=== PATIENT | female | born 1940 | race Caucasian/White ===

== ENCOUNTER 2020-04-04 11:26 | Outpatient (NON) | payer MEDICARE, SELFPAY ==
[2020-04-04 23:29] LABS: SARS-CoV-2 RNA PCR Negative
== END 2020-04-04 11:27 ==
PROVIDERS: PCP Family Medicine; Visit Provider Physician Assistant Medical
DX: Z20.822 Contact with and (suspected) exposure to COVID-19 (principal); R09.81 Nasal congestion
CPT/HCPCS: C9803; U0003

== ENCOUNTER 2020-04-10 14:44 | Outpatient (CLI) | payer MEDICARE, SELFPAY ==
--- NOTE | ~2020-04-10 | MM_ITS ---
EXAMINATION: MM scrn melissa implant LT w sophia HISTORY: Screening mammogram TECHNIQUE: Craniocaudal and mediolateral oblique 3-D tomosynthesis images with implant displacement a nd synthetic 2-D images were generated. Craniocaudal and mediolateral oblique views of the breasts wi thout implant displacement were obtained using full field digital mammography. CAD analysis was submi tted and interpreted. COMPARISON: Comparison to multiple prior studies sequentially, with oldest reviewed study dated 03/2013. BREAST PARENCHYMAL COMPOSITION: There are scattered areas of fibroglandular density. FINDINGS: There is no evidence of suspicious mass, calcification, or architectural distortion to sugg est malignancy in either breast. There has been no suspicious interval change. IMPRESSION: 1. No mammographic evidence of malignancy. 2. Recommend routine screening mammography in one year. BI-RADS Category 1: Negative Reviewed, dictated and finalized at location A. DCAST METEOROLOGIST
== END 2020-04-10 14:45 | disposition home or self-care (01) ==
LOC: ANHIMG 14:53
PROVIDERS: PCP Family Medicine; Visit Provider Physician Assistant Medical
DX: Z12.31 Encounter for screening mammogram for malignant neoplasm of breast (principal)
CPT/HCPCS: 77063; 77067

== ENCOUNTER 2020-12-15 14:35 | Emergency (ER) | payer MEDICARE, SELFPAY ==
--- NOTE | ~2020-12-15 | XR_ITS ---
EXAMINATION: XR chest 2V DATE: 12/15/2020 14:56 INDICATION: Shortness of breath and chest pain, history of right mastectomy TECHNIQUE: PA and lateral views of the chest are obtained. COMPARISON: None available FINDINGS: The lungs are free of acute opacities. Calcified pulmonary nodules are consistent with old granulomatous disease. There is no pleural effusion or pneumothorax. The cardiomediastinal silhouette is normal. There is moderate thoracic spondylosis. There are changes of right breast reconstruction. IMPRESSION: 1. No acute cardiopulmonary abnormality. Reviewed, dictated and finalized at location A.
[2020-12-15 14:47] VITALS: BP 150/110; PULSE 73; RESP 16; TEMP 36.2; O2SAT 96
--- NOTE | 2020-12-15 14:58 | ED.SOB ---
HPI - SOB/Dyspnea General Chief Complaint: Shortness of Breath/Dyspnea Stated Complaint: Hurts to breathe History of Present Illness HPI Narrative: This is a 81 year old female that comes in complaining of having had chest or muscle tightness for the past week. Patient states today she had some shortness of breath she has called her doctor who told her to come for a chest x ray. At this time patient states she started to have pain with breathing in her chest. Patient states that she believes it is pneumonia due to her was just released from the hospital with pneumonia. Patient denies any coughing states that it just has come on today. Patient denies any radiation down her arm no nausea and or vomiting. Related Data Home Medications Medication Instructions Recorded Confirmed aspirin 81 mg tablet,delayed 81 mg PO DAILY 04/06/19 12/15/20 release vitamins A,C,Q-haxg-osjnor 14,320 1 cap PO ONCE cap 09/14/19 12/15/20 unit-226 mg-200 unit capsule Allergies Allergy/AdvReac Type Severity Reaction Status Date / Time chlorpheniramine Allergy Unknown Unknown Verified 12/15/20 14:52 [Ed A-Hist DM] dextromethorphan Allergy Unknown Unknown Verified 12/15/20 14:52 [Ed A-Hist DM] enalapril Allergy Unknown facial Verified 12/15/20 14:52 swelling phenylephrine [Ed A-Hist DM] Allergy Unknown Unknown Verified 12/15/20 14:52 pseudoephedrine [Aprodine] Allergy Unknown Unknown Verified 12/15/20 14:52 triprolidine [Aprodine] Allergy Unknown Unknown Verified 12/15/20 14:52 Review of Systems Review of Systems: REspiratory : Pain with breathing in her midsternal chest with every breath and on her front chest holland as well. All systems reviewed & are unremarkable except as noted in HPI and below PMFSH Past Medical History Medical History (Updated 12/15/20 @ 18:14 by Gerardo Pak NP) Esophageal web Essential (primary) hypertension Hiatal hernia History of gastroesophageal reflux (GERD) History of right breast cancer (~1989) Impacted cerumen of both ears Internal hemorrhoid Iron deficiency anemia Mixed hyperlipidemia Neck muscle strain Obesity Sleep apnea Sleep apnea, unspecified Spinal stenosis, lumbar region, with neurogenic claudication 2018: L4-L5 moderate to severe spinal stenosis/ severe degenerative disc disease Wears eyeglasses Surgical History Surgical History History of appendectomy History of cataract extraction (~1994) History of colonoscopy (~02/01/14) History of hernia repair History of right mastectomy Family History Family History Father Hypertension Family history of elevated blood lipids Family history of cardiovascular disease Mother Hypertension Other Family history of malignant neoplasm of breast Social History Social History Second hand tobacco smoke exposure: No Smoking end date: 03/31/85 Alcohol intake: current Drinks per week: 3 Substance use: never Substance use type: does not use Gender identity (if verbalized by the patient): Female Spiritual care concerns: Yes (Buddhist) Agree to blood products: Yes Comments At time as signature, I have reviewed and agree with nursing past medical, social, surgical and family history. Please see nursing chart for further information. There is no relevant family history pertinent to the presenting complaint. Exam Narrative: GENERAL:Well-appearing, well-nourished, and in no acute distress. HEAD:Normocephalic EYES: PERRLA ENT: Nares clear, no rhinorrhea or epistaxis. Mucous membranes moist. CHEST: Clear to auscultation. No respiratory distress. HEART: Regular rate and rhythm. Normal peripheral pulses. ABDOMEN: Soft, nontender, normal active bowel sounds. EXTREMITIES: Normal range of motion. No edema. SKIN: Warm, dry, no rash. NEURO: No foca
--- NOTE | 2020-12-15 15:22 | ECG_ITS ---
Measurements Intervals [place] Rate: 69 P: 36 NV: 171 QRS: 27 QRSD: 82 T: 3 QT: 380 QTc: 407 Interpretive Statements SINUS RHYTHM ATRIAL PREMATURE COMPLEX BASELINE ARTIFACT- II, III, AVF, V3 BORDERLINE ECG Electronically Signed On 12-15-2020 15:55:56 CDT by Khai Wolff D.O.
== END 2020-12-15 15:43 | disposition short-term general hospital (02) ==
LOC: EXPGLEN 14:37
PROVIDERS: Emergency Provider Nurse Practitioner Family; PCP Family Medicine
DX: I10 Essential (primary) hypertension (principal); R07.9 Chest pain, unspecified; E78.2 Mixed hyperlipidemia; Z79.82 Long term (current) use of aspirin; Z85.3 Personal history of malignant neoplasm of breast
CPT/HCPCS: 71046; 93005; 99213; G0463

== ENCOUNTER 2020-12-15 16:13 | Emergency (ER) | payer MEDICARE, SELFPAY ==
[2020-12-15] VITALS (7 sets, daily range): BP systolic 118–206; BP diastolic 79–107; PULSE 62–72; RESP 16–21; TEMP 37.1; O2SAT 94–99
--- NOTE | 2020-12-15 16:17 | ECG_ITS ---
Measurements Intervals [place] Rate: 76 P: 38 MS: 173 QRS: 38 QRSD: 81 T: 27 QT: 375 QTc: 424 Interpretive Statements SINUS RHYTHM BORDERLINE ST ABNORMALITY- INFERIOR LEADS BASELINE ARTIFACT- I, III, AVL, AVF BORDERLINE ECG Electronically Signed On 12-15-2020 16:41:34 CDT by Khai Wolff D.O.
[2020-12-15 16:36] LABS: Basophils Absolute Auto 0.1 K/mm3 (0.0-0.1); Basophils Percent Auto 0.6 % (0.2-1.2); Eosinophils Absolute Auto 0.2 K/mm3 (0-0.3); Eosinophils Percent Auto 2.2 % (0-4.4); Hematocrit 43.1 % (37.0-47.0); Hemoglobin 13.6 g/dL (12.0-15.0); Immature Granulocyte Absolute 0.02 K/mm3 (0.00-0.031); Immature Granulocyte Percent A 0.2 % (0-0.5); Lymphocytes Absolute Auto 2.96 K/mm3 (0.9-3.2); Lymphocytes Percent Auto 29.2 % (18.3-44.2); Mean Corpuscular HGB Conc 31.6 g/dl (32-36); Mean Corpuscular Hemoglobin 28.3 pg (26-34); Mean Corpuscular Volume 89.8 fl (80-100); Mean Platelet Volume 9.3 fl (7.4-10.4); Monocytes Absolute Auto 1.1 K/mm3 (0.1-0.6); Monocytes Percent Auto 10.7 % (2.6-8.5); Neutrophils Absolute Auto 5.8 K/mm3 (1.3-6.7); Neutrophils Percent Auto 57.1 % (45.5-73.1); Platelet Count Result 282 k/mm3 (150-375); White Blood Count 10.1 K/mm3 (4.5-10.0)
[2020-12-15 16:53] LABS: INR 0.9; Prothrombin Time 12.4 Seconds (11.1-14.7)
[2020-12-15 16:54] LABS: Partial Thromboplastin Time 24.6 SECONDS (22.3-36.8)
[2020-12-15 16:58] LABS: Anion Gap 10 mmol/L (8-16); Blood Urea Nitrogen 19 mg/dL (7-17); Calcium 9.8 mg/dL (8.4-10.2); Carbon Dioxide 27 mmol/L (22-30); Chloride 101 mmol/L (98-107); Estimated Glomerular Filt Rate > 60; Glucose 97 mg/dL (65-110); Potassium 4.5 mmol/L (3.4-5.0); Sodium 138 mmol/L (137-145)
[2020-12-15 17:00] LABS: Troponin I < 0.012 ng/mL (0.000-0.034)
--- NOTE | 2020-12-15 19:51 | ED.CHESTPAIN ---
HPI - Chest Pain General Chief Complaint: Chest Pain Stated Complaint: CHEST PAIN WITH BREATHING Time Seen by Provider: 12/15/20 19:36 Source: patient Mode of arrival: ambulatory Limitations: no limitations History of Present Illness HPI narrative: This is a 79 year old female that presents to the ER for intermittent chest pain noted over the last week. Reports pain is worse with breathing. Does report some exertional shortness of breath. Reports some lower extremity edema as she has been sitting a lot today. Denies fever, or cough. Related Data Home Medications Medication Instructions Recorded Confirmed aspirin 81 mg tablet,delayed 81 mg PO DAILY 04/06/19 12/15/20 release vitamins A,C,D-pqqi-vgagcy 14,320 1 cap PO ONCE cap 09/14/19 12/15/20 unit-226 mg-200 unit capsule Allergies Allergy/AdvReac Type Severity Reaction Status Date / Time chlorpheniramine Allergy Unknown Unknown Verified 12/15/20 14:52 [Ed A-Hist DM] dextromethorphan Allergy Unknown Unknown Verified 12/15/20 14:52 [Ed A-Hist DM] enalapril Allergy Unknown facial Verified 12/15/20 14:52 swelling phenylephrine [Ed A-Hist DM] Allergy Unknown Unknown Verified 12/15/20 14:52 pseudoephedrine [Aprodine] Allergy Unknown Unknown Verified 12/15/20 14:52 triprolidine [Aprodine] Allergy Unknown Unknown Verified 12/15/20 14:52 Review of Systems Review of Systems: CONSTITUTIONAL: Denies fever, CARDIOVASCULAR: Reports chest pain and edema. RESPIRATORY: Reports dyspnea. Denies cough All systems reviewed & are unremarkable except as noted in HPI and below PMFSH Past Medical History Medical History (Updated 12/15/20 @ 23:43 by Genet Trejo PA-C) Esophageal web Essential (primary) hypertension Hiatal hernia History of gastroesophageal reflux (GERD) History of right breast cancer (~1989) Impacted cerumen of both ears Internal hemorrhoid Iron deficiency anemia Mixed hyperlipidemia Neck muscle strain Obesity Sleep apnea Sleep apnea, unspecified Spinal stenosis, lumbar region, with neurogenic claudication 2018: L4-L5 moderate to severe spinal stenosis/ severe degenerative disc disease Wears eyeglasses Surgical History Surgical History History of appendectomy History of cataract extraction (~1994) History of colonoscopy (~02/01/14) History of hernia repair History of right mastectomy Family History Family History Father Hypertension Family history of elevated blood lipids Family history of cardiovascular disease Mother Hypertension Other Family history of malignant neoplasm of breast Social History Social History Second hand tobacco smoke exposure: No Smoking end date: 03/31/85 Alcohol intake: current Drinks per week: 3 Substance use: never Substance use type: does not use Gender identity (if verbalized by the patient): Female Spiritual care concerns: Yes (Religion) Agree to blood products: Yes Exam Narrative: GENERAL: Well-appearing, well-nourished, and in no acute distress. HEAD: Normocephalic, atraumatic. EYES: EOMI. NECK: Supple. No adenopathy or masses. No carotid bruits or JVD CHEST: Clear to auscultation. No respiratory distress. No wheezes rales or rhonchi. Tender to palpation of the upper, anterior chest wall HEART: Regular rate and rhythm. No murmur heard. Normal peripheral pulses. EXTREMITIES: Normal range of motion. No edema. SKIN: Warm, dry, no rash. NEURO: No focal deficits. Alert and oriented x3. PSYCH: Normal mood and affect Course Consultations Consultation #1: I did speak with hospitalist about possible admission as her heart score is a 4. Does feel at this time patient is stable for close outpatient follow up. Date: 12/15/20 Time: 23:00 Consultation #2: Spoke with patient's primary electronic equipment trades worker about work-up. Erick
[2020-12-15 20:15] LABS: D Dimer 0.49 ug/mL (<0.48)
[2020-12-15 20:27] LABS: Troponin I < 0.012 ng/mL (0.000-0.034)
[2020-12-15 20:34] LABS: NT Pro B Type Natriuretic Pept 381 pg/mL (5-100)
[2020-12-15] MEDS: ACETAMINOPHEN 500 MG TABLET 1000 MG PO (20:58)
[2020-12-15] MEDS: ENALAPRIL MALEATE 10 MG TABLET PO (20:58)
[2020-12-15] MEDS: METOPROLOL SUCCINATE EXT REL 50 MG TABCR PO (20:58)
[2020-12-15 23:26] LABS: Troponin I < 0.012 ng/mL (0.000-0.034)
[2020-12-16 00:10] VITALS: BP 191/82; PULSE 67; RESP 18; O2SAT 96
== END 2020-12-16 00:12 | disposition home or self-care (01) ==
PROVIDERS: Emergency Medicine; Physician Assistant; Emergency Provider Emergency Medicine; PCP Family Medicine
DX: R07.89 Other chest pain (principal); I10 Essential (primary) hypertension; E78.2 Mixed hyperlipidemia; E66.9 Obesity, unspecified; G47.30 Sleep apnea, unspecified; R06.02 Shortness of breath; Z87.19 Personal history of other diseases of the digestive system; Z85.3 Personal history of malignant neoplasm of breast; Z86.2 Personal history of diseases of the blood and blood-forming organs and certain disorders involving the immune mechanism; Z79.82 Long term (current) use of aspirin
CPT/HCPCS: 36415; 71046; 80048; 83880; 84484; 85025; 85380; 85610; 85730; 93005; 99213; 99284; A9270; G0463

== ENCOUNTER → 2021-02-08 03:06 | Outpatient (CLI) | payer MEDICARE, SELFPAY ==
[2021-02-08 17:50] LABS: SARS-CoV-2 RNA PCR Negative
== END ==
PROVIDERS: PCP Family Medicine; Visit Provider Family Medicine
DX: R05.9 Cough, unspecified (principal); Z20.822 Contact with and (suspected) exposure to COVID-19
CPT/HCPCS: C9803; U0003; U0005

== ENCOUNTER 2021-05-30 10:03 | Outpatient (CLI) | payer MEDICARE, SELFPAY ==
--- NOTE | ~2021-05-30 | MM_ITS ---
EXAMINATION: MM screening melissa LT w sophia HISTORY: Screening left mammogram, history of right mastectomy TECHNIQUE: Craniocaudal and mediolateral oblique 3-D tomosynthesis images were obtained and synthetic 2-D images were generated. CAD analysis was submitted and interpreted. COMPARISON: 04/10/2020, 03/25/2019, 03/19/2018 BREAST PARENCHYMAL COMPOSITION: There are scattered areas of fibroglandular density. FINDINGS: There is no evidence of suspicious mass, calcification, or architectural distortion to sugg est malignancy. There has been no suspicious interval change. IMPRESSION: 1. No mammographic evidence of malignancy. 2. Recommend routine screening mammography while the patient remains in good health. BI-RADS Category 1: Negative Reviewed, dictated and finalized at location A. MOBILE RADIATOR MECHANIC IMPRESSION: 1. No mammographic evidence of malignancy. 2. Recommend routine screening mammography while the patient remains in good he alth. BI-RADS Category 1: Negative
== END 2021-05-30 10:04 | disposition home or self-care (01) ==
PROVIDERS: PCP Family Medicine; Visit Provider Physician Assistant Medical
DX: Z12.31 Encounter for screening mammogram for malignant neoplasm of breast (principal)
CPT/HCPCS: 77063; 77067

== ENCOUNTER 2021-08-11 09:27 | Outpatient (CLI) | payer MEDICARE, SELFPAY ==
--- NOTE | ~2021-08-11 | DEXA_ITS ---
Bone Density Report Name: GEORGE ZUÑIGA Age: 80 Sex: Female Ethnicity: White Date of : 1940 Indication: osteopenia; height loss; prior fracture; cancer; hysterectomy; postmenopausal Referring Provider: ARTI ABRAHAM Study: Bone densitometry was performed. Exam Date: August 11, 2021 Accession number: [id number] Bone Density: Region BMD T-score Z-score Classification AP Spine(L1-L4) 1.189 1.3 4.1 Normal Femoral Neck (Left) 0.692 -1.4 1.0 Osteopenia Total Hip (Left) 0.791 -1.2 1.0 Osteopenia Femoral Neck (Right) 0.638 -1.9 0.5 Osteopenia Total Hip (Right) 0.760 -1.5 0.7 Osteopenia Total Hip Mean 0.775 -1.4 0.9 Osteopenia World Health Organization criteria for BMD impression classify patients as: Normal (T-score at or above -1.0), Osteopenia (T-score between -1.0 and -2.5), or Osteoporosis (T-score at or below -2.5). 10-year Fracture Risk(1): Major Osteoporotic Fracture 19% Hip Fracture 4.8% Reported Risk Factors: [place] (), Neck BMD=0.638, BMI=38.4, previous fracture (1) FRAX(R) Version 3.08. Fracture probability calculated for an untreated patient. Fracture probability may be lower if the patient has received treatment. Previous Exams: Region Exam Age BMD T-score BMD Change BMD Change Date g/cm2 vs Baseline vs Previous AP Spine (L1-L4) 08/11/2021 80 1.189 1.3 0.072 (6.4%)* 0.043 (3.8%)* 04/01/2018 77 1.145 0.9 0.028 (2.5%)* 0.028 (2.5%)* 10/24/2014 73 1.117 0.6 Total Hip(Left) 08/11/2021 80 0.791 -1.2 -0.009 (-1.1%) -0.026 (-3.1%) 04/01/2018 77 0.817 -1.0 0.017 (2.1%) 0.017 (2.1%) 10/24/2014 73 0.800 -1.2 Total Hip(Right) 08/11/2021 80 0.760 -1.5 -0.030 (-3.8%) -0.025 (-3.2%) 04/01/2018 77 0.785 -1.3 -0.005 (-0.6%) -0.005 (-0.6%) 10/24/2014 73 0.789 -1.3 *Denotes significance at 95% confidence level, LSC for AP Spine = 0.022 g/cm2, LSC for Total Hip = 0.027 g/cm2 Clinical Information Provided by Patient: Has had a low trauma fracture Has used the following medications: Vitamin D, Calcium Has the following medical conditions: Cancer, Hysterectomy Patient maximum height was 60.5 Menopause Age: 44 No regular weight bearing exercise Onset of menses at age 8 Impression: The patient has low bone mass, based on the Right Femoral Neck T-score. The patient has an estimated ten-year risk of hip fracture of 4.8% and an estimated ten-year risk o
== END 2021-08-11 09:28 | disposition home or self-care (01) ==
PROVIDERS: PCP Family Medicine; Visit Provider Family Medicine
DX: Z78.0 Asymptomatic menopausal state (principal); M85.851 Other specified disorders of bone density and structure, right thigh; M85.852 Other specified disorders of bone density and structure, left thigh
CPT/HCPCS: 77080

== ENCOUNTER 2021-10-10 13:35 | Outpatient (RCR) | payer MEDICARE, SELFPAY ==
[2021-10-10] MEDS: ACETAMINOPHEN 325 MG TABLET 650 MG PO (13:40)
[2021-10-10] MEDS: diphenhydrAMINE HCl CAP 25 MG CAPSULE PO (13:41)
[2021-10-10] MEDS: FAMOTIDINE 20 MG TABLET PO (13:41)
[2021-10-10 13:52] VITALS: BP 181/81; PULSE 77; RESP 18; TEMP 37.1; O2SAT 96
[2021-10-10] MEDS: BEBTELOVIMAB 175 MG/2 ML VIAL IV PUSH (14:01)
[2021-10-10 14:53] VITALS: BP 180/76; PULSE 70; RESP 18; O2SAT 96
== END 2021-10-10 16:00 ==
LOC: AMCINF 13:35
PROVIDERS: PCP Family Medicine; Visit Provider Internal Medicine Hematology & Oncology
DX: U07.1 COVID-19 (principal); I10 Essential (primary) hypertension
CPT/HCPCS: A9270; M0222; Q0222

== ENCOUNTER 2022-04-15 14:05 | Emergency (ER) | payer MEDICARE, SELFPAY ==
--- NOTE | ~2022-04-15 | XR_ITS ---
XR lumbar spine 2-3V 04/15/2022 16:38 Indication: Left-sided back pain. Procedure: 3 views lumbar spine Comparison: 11/13/2007 Findings: There is advanced multilevel degenerative disc disease of the lower thoracic and lumbar spi ne. There is severe disc narrowing at T12-L1. There is advanced multilevel facet hypertrophy. There i s grade 1 degenerative spondylolisthesis at L5-S1. No acute fracture or traumatic malalignment. There is mild dextroscoliosis. There is mild superior endplate compression deformity of L2 which is likely chronic. Severe endplate degenerative change at T12-L1. Impression: 1: No acute abnormality of the lumbar spine. 2: Severe lumbar spondylosis. Reviewed, dictated and finalized at location A. RTISING OPERATIONS MANAGER Impression: 1: No acute abnormality of the lumbar spine. 2: Severe lumbar spondylosis.
--- NOTE | ~2022-04-15 | XR_ITS ---
XR thoracic spine 3V 04/15/2022 16:38 Indication: Left-sided back pain Procedure: 3 views thoracic spine Comparison: No prior studies for comparison. Findings: There is mild dextrocurvature of the upper thoracic spine. Vertebral body heights are maint ained. There is mild multilevel degenerative disc disease. There is degenerative retrolisthesis at T1 2-L1. No paraspinal soft tissue abnormality. Pedicles intact. Surrounding osseous structures are unre markable. Impression: 1: No acute abnormality of the thoracic spine. 2: Moderate-severe thoracic spondylosis. Reviewed, dictated and finalized at location A. MANAGEMENT INTERNSHIP Impression: 1: No acute abnormality of the thoracic spine. 2: Moderate-severe thoracic spondylosis.
[2022-04-15 14:08] VITALS: BP 155/104; PULSE 67; RESP 20; TEMP 36.5; O2SAT 97
[2022-04-15] MEDS: ACETAMINOPHEN 500 MG TABLET 1000 MG PO (15:54)
[2022-04-15] MEDS: diazePAM INJ (*CRX) 10 MG/2 ML SYRINGE 2.5 MG IM (15:54)
--- NOTE | 2022-04-15 16:32 | ED.BACK ---
HPI - Back Pain/Injury General Chief Complaint: Back Pain/Injury Stated Complaint: back spasms left middle back Time Seen by Provider: 04/15/22 15:25 Source: patient Mode of arrival: wheelchair Limitations: no limitations History of Present Illness HPI Narrative: This is an 81-year-old female that presents to the emergency department for left-sided mid to lower back pain ongoing over the last couple of weeks. No recent injury or trauma. Reports the pain is worse with movement and relieved with rest. She feels as though she is having spasms. She tried to take her muscle relaxer at home with little relief which prompted her to be seen. Denies chest pain, shortness of breath, abdominal pain, dysuria, hematuria, numbness or weakness. Related Data Home Medications Medication Instructions Recorded Confirmed aspirin 81 mg tablet,delayed 81 mg PO DAILY 04/06/19 01/14/22 release vitamins A,C,S-fylo-rxyrxe 14,320 1 cap PO ONCE 09/14/19 01/14/22 unit-226 mg-200 unit capsule (PreserVision AREDS) Allergies Allergy/AdvReac Type Severity Reaction Status Date / Time chlorpheniramine Allergy Unknown Unknown Verified 04/15/22 14:48 [Ed A-Hist DM] dextromethorphan Allergy Unknown Unknown Verified 04/15/22 14:48 [Ed A-Hist DM] enalapril Allergy Unknown facial Verified 04/15/22 14:48 swelling phenylephrine [Ed A-Hist DM] Allergy Unknown Unknown Verified 04/15/22 14:48 pseudoephedrine [Aprodine] Allergy Unknown Unknown Verified 04/15/22 14:48 triprolidine [Aprodine] Allergy Unknown Unknown Verified 04/15/22 14:48 Review of Systems Review of Systems: CONSTITUTIONAL: Denies fever CARDIOVASCULAR: Denies chest pain RESPIRATORY: Denies dyspnea. GASTROINTESTINAL: Denies abdominal pain, nausea, vomiting GENITOURINARY: Denies dysuria or hematuria. SKIN: Denies rash MUSCULOSKELETAL: Reports back pain, joint pain, and myalgia. NEUROLOGIC: Denies numbness, or weakness. All systems reviewed & are unremarkable except as noted in HPI and below PMFSH Past Medical History Medical History Esophageal web Essential (primary) hypertension Hiatal hernia History of gastroesophageal reflux (GERD) History of right breast cancer (~1989) Impacted cerumen of both ears Internal hemorrhoid Iron deficiency anemia Mixed hyperlipidemia Neck muscle strain Neoplasm of uncertain behavior of skin Obesity Sleep apnea Sleep apnea, unspecified Spinal stenosis, lumbar region, with neurogenic claudication 2018: L4-L5 moderate to severe spinal stenosis/ severe degenerative disc disease Wears eyeglasses Surgical History Surgical History History of appendectomy History of cataract extraction (~1994) History of colonoscopy (~02/01/14) History of hernia repair History of right mastectomy Family History Family History Father Hypertension Family history of elevated blood lipids Family history of cardiovascular disease Mother Hypertension Other Family history of malignant neoplasm of breast Social History Social History (Updated 03/20/22 @ 10:33 by Chun Mancilla MA) Smoking status: Former smoker Second hand tobacco smoke exposure: No Smoking end date: 03/31/85 Alcohol intake: current Drinks per week: 3 Substance use: never Substance use type: does not use Lack of Transportation: No Lack of Food: Never True Current Housing: I Have Housing Concerned About Future Housing: No Difficulty Paying Gas/Electric Bills: No Difficulty Paying for Meds: No Currently Unemployed: No Education: High School Diploma/GED Difficulty w/ Childcare or Family Care: No Gender identity (if verbalized by the patient): Female Spiritual care concerns: Yes (Episcopal) Agree to blood products: Yes Exam Narrative: GENERAL: Well-appear
== END 2022-04-15 18:05 | disposition home or self-care (01) ==
PROVIDERS: Emergency Provider Physician Assistant; PCP Family Medicine
DX: M54.6 Pain in thoracic spine (principal); E78.2 Mixed hyperlipidemia; I10 Essential (primary) hypertension; K21.9 Gastro-esophageal reflux disease without esophagitis; D50.9 Iron deficiency anemia, unspecified; G47.30 Sleep apnea, unspecified; Z90.11 Acquired absence of right breast and nipple; Z98.49 Cataract extraction status, unspecified eye; Z85.3 Personal history of malignant neoplasm of breast; Z85.828 Personal history of other malignant neoplasm of skin; Z87.891 Personal history of nicotine dependence; Z79.82 Long term (current) use of aspirin; M47.814 Spondylosis without myelopathy or radiculopathy, thoracic region; M47.816 Spondylosis without myelopathy or radiculopathy, lumbar region
CPT/HCPCS: 72072; 72100; 96372; 99283; A9270; J3360

== ENCOUNTER 2022-06-17 13:37 | Emergency (ER) | payer MEDICARE, SELFPAY ==
[2022-06-17 13:54] VITALS: BP 116/68; PULSE 75; RESP 16; TEMP 37.1; O2SAT 94
--- NOTE | 2022-06-17 14:01 | ED.BACK ---
HPI - Back Pain/Injury General Chief Complaint: Back Pain/Injury Stated Complaint: BACK PAIN Time Seen by Provider: 06/17/22 14:01 Source: patient Mode of arrival: ambulatory Limitations: no limitations History of Present Illness HPI Narrative: 81-year-old female presents with complaint of right-sided mid and low back pain for several days. Patient reports similar pain in March. Saw her primary care physician and was given Flexeril, steroids. Patient states that she has been taking Flexeril and Tylenol for pain without relief. Denies injury. Ambulatory with steady gait. Patient's PCP is out of town and was a unable to get an appointment. Patient reports ?tight and spasming ?. No urinary symptoms. Pain does not radiate to lower extremities. All systems reviewed and negative except as noted above. Related Data Home Medications Medication Instructions Recorded Confirmed aspirin 81 mg tablet,delayed 81 mg PO DAILY 04/06/19 04/16/22 release vitamins A,C,E-ljjb-mkfxke 4,296 1 cap PO ONCE 09/14/19 04/16/22 mcg-226 mg-90 mg capsule (PreserVision AREDS) Allergies Allergy/AdvReac Type Severity Reaction Status Date / Time chlorpheniramine Allergy Unknown Unknown Verified 06/17/22 14:00 [Ed A-Hist DM] dextromethorphan Allergy Unknown Unknown Verified 06/17/22 14:00 [Ed A-Hist DM] enalapril Allergy Unknown facial Verified 06/17/22 14:00 swelling phenylephrine [Ed A-Hist DM] Allergy Unknown Unknown Verified 06/17/22 14:00 pseudoephedrine [Aprodine] Allergy Unknown Unknown Verified 06/17/22 14:00 triprolidine [Aprodine] Allergy Unknown Unknown Verified 06/17/22 14:00 Review of Systems Review of Systems: CONSTITUTIONAL: Denies fever, chills, or sweats. EYES: Denies visual changes, redness, or discharge. ENT: Denies rhinorrhea, congestion, sore throat, or otalgia. CARDIOVASCULAR: Denies chest pain, palpitations, or edema. RESPIRATORY: Denies cough or dyspnea. GASTROINTESTINAL: Denies abdominal pain, nausea, vomiting, or diarrhea. GENITOURINARY: Denies dysuria or hematuria. SKIN: Denies rash or itching. MUSCULOSKELETAL: Reports right-sided low and mid back pain. Denies joint pain, or myalgia. NEUROLOGIC: Denies headache, numbness, or weakness. PSYCHIATRIC: Denies anxiety or depression. All other systems reviewed are negative, except as documented in HPI. [facility] Past Medical History Medical History COVID-19 Esophageal web Essential (primary) hypertension Hiatal hernia History of gastroesophageal reflux (GERD) History of right breast cancer (~1989) Impacted cerumen of both ears Internal hemorrhoid Iron deficiency anemia Mixed hyperlipidemia Neck muscle strain Neoplasm of uncertain behavior of skin Obesity Sleep apnea Sleep apnea, unspecified Spinal stenosis, lumbar region, with neurogenic claudication 2018: L4-L5 moderate to severe spinal stenosis/ severe degenerative disc disease Tricompartment osteoarthritis of right knee Wears eyeglasses Surgical History Surgical History History of appendectomy History of cataract extraction (~1994) History of colonoscopy (~02/01/14) History of hernia repair History of right mastectomy Family History Family History Father Hypertension Family history of elevated blood lipids Family history of cardiovascular disease Mother Hypertension Other Family history of malignant neoplasm of breast Social History Social History Smoking status: Former smoker Second hand tobacco smoke exposure: No Smoking end date: 03/31/85 Alcohol intake: current Drinks per week: 3 Substance use: never Substance use type: does not use Lack of Transportation: No Lack of Food: Never True Current Housing: I Have Housing Con
== END 2022-06-17 14:18 | disposition home or self-care (01) ==
PROVIDERS: Emergency Provider Nurse Practitioner Family; PCP Family Medicine
DX: S39.012A Strain of muscle, fascia and tendon of lower back, initial encounter (principal); I10 Essential (primary) hypertension; E78.2 Mixed hyperlipidemia; Z87.891 Personal history of nicotine dependence; Z85.3 Personal history of malignant neoplasm of breast; X58.XXXA Exposure to other specified factors, initial encounter
CPT/HCPCS: 99213; G0463

== ENCOUNTER 2022-06-24 11:55 | Outpatient (CLI) | payer MEDICARE, SELFPAY ==
--- NOTE | ~2022-06-24 | XR_ITS ---
Lumbosacral Spine: AP, oblique, and lateral views Clinical History: Pain COMPARISON: 04/15/2022 Findings: The normal lordotic curve is maintained. No acute fracture. Stable grade 1 retrolisthesis o f L2 over L3. Stable degenerative disc changes and facet arthropathy throughout the lumbar spine. The sacroiliac joints are normally outlined. Impression: Moderate degenerative spondylosis, stable from prior exam. Reviewed, dictated and finalized at location . Impression: Moderate degenerative spondylosis, stable from prior exam.
--- NOTE | ~2022-06-24 | XR_ITS ---
Thoracic spine: Clinical Indication: Back pain COMPARISON: 04/15/2022 AP and lateral views were performed. No fracture is seen. There is normal alignment of the vertebrae. The intervertebral disc spaces appe ar normal. Paravertebral soft tissues appear normal. Impression: No significant abnormalities noted. Reviewed, dictated and finalized at [facility]. Impression: No significant abnormalities noted.
== END 2022-06-24 11:56 | disposition home or self-care (01) ==
LOC: ANHIMG 11:59
PROVIDERS: PCP Family Medicine; Visit Provider Nurse Practitioner Family
DX: M48.062 Spinal stenosis, lumbar region with neurogenic claudication (principal); M47.816 Spondylosis without myelopathy or radiculopathy, lumbar region
CPT/HCPCS: 72072; 72110

== ENCOUNTER 2022-07-05 14:12 | Outpatient (CLI) | payer MEDICARE, SELFPAY ==
--- NOTE | ~2022-07-05 | MM_ITS ---
EXAMINATION: MM screening melissa LT w sophia HISTORY: Screening TECHNIQUE: Craniocaudal and mediolateral oblique 3-D tomosynthesis images were obtained and synthetic 2-D images were generated. CAD analysis was submitted and interpreted. COMPARISON: Comparison to multiple prior studies sequentially, with oldest reviewed study dated 02/28. BREAST PARENCHYMAL COMPOSITION: There are scattered areas of fibroglandular density. FINDINGS: There is no evidence of suspicious mass, calcification, or architectural distortion to sugg est malignancy in left breast. There has been no suspicious interval change. IMPRESSION: 1. No mammographic evidence of malignancy. 2. Recommend routine screening mammography in one year. BI-RADS Category 1: Negative Reviewed, dictated and finalized at location A.
== END 2022-07-05 14:13 | disposition home or self-care (01) ==
PROVIDERS: PCP Family Medicine; Visit Provider Family Medicine
DX: Z12.31 Encounter for screening mammogram for malignant neoplasm of breast (principal)
CPT/HCPCS: 77063; 77067

== ENCOUNTER 2022-07-17 12:30 | Outpatient (RCR) | payer MEDICARE, SELFPAY ==
--- NOTE | 2022-07-04 17:04 | PTOPEVAL1 ---
Assessment and note entered by Zac Barton, PT, DPT Evaluation Information Assessment Status Evaluation Diagnosis back pain Onset 4 months Subjective Information Pt states she has some muscle spasms in her lower back on the R side. It has switched back and forth between her L and R side, but now has settled to her R side. She states the pain has gotten somewhat better after taking some steroids. Reported Pain Level Pain Score 6: Self Report Assessment PT Clinical Summary Spring Mascorro) presents to therapy today for her initial evaluation with a diagnosis of spinal stenosis in the lumbar region. Today she demonstrate R sided back pain with active trunk motions in all directions, overhead reaching is also limited by an increase in back pain. She demonstrates increased soft tissue density with palpable muscle tightness along her R side thoracic paraspinal. She demonstrates functional LE strength. Skilled physical therapy services are indicated to decrease pain, to decrease soft tissue restrictions, to improve body awareness, and to return to baseline level of mobility. Plan of Care Interventions Electrical Stimulation,Gait Training,Hot Pack/Cold Pack,Manual Therapy,Neuro Re-education,Patient/ Caregiver Educati,Therapeutic Activities, Therapeutic Exercise PT Services Indicated Yes Treatment Frequency and 1-2x/wk for 4 wks Duration These treatments will address the objective and functional deficits as defined above. The patient will be advanced safely and appropriately in order for the patient to progress towards his/her prior level of function. Additional exercises will be introduced and as well as a comprehensive home exercise program upon discharge, if needed, ?to ensure carryover of functional gains achieved in the clinic. This treatment plan has been reviewed and agreement upon by the patient.
--- NOTE | 2022-07-24 09:17 | PTOPDC ---
Assessment and note entered by Zac Barton, PT, DPT Evaluation Information Assessment Status Discharge - Pt Not Present Diagnosis back pain Onset 4 months Subjective Information Pt called today and cancelled all of her remaining appointments. She states she is going to continue with pain management. States she will get a new order if she wants to come back. Assessment PT Clinical Summary Renetta completed 5 visits of therapy from 07/04/22 to . She will be discharged at this time per patient request.
== END 2022-07-24 13:24 | disposition home or self-care (01) ==
LOC: ANHGOSHPT 12:30
PROVIDERS: PCP Family Medicine; Visit Provider Nurse Practitioner Family
DX: M48.062 Spinal stenosis, lumbar region with neurogenic claudication (principal)
CPT/HCPCS: 97014; 97110; 97140; 97161; G0283

== ENCOUNTER 2022-07-24 19:40 | Inpatient (IN) | payer MEDICARE, SELFPAY ==
[2022-07-24] VITALS (9 sets, daily range): BP systolic 131–149; BP diastolic 69–93; PULSE 80–87; RESP 18–26; TEMP 36.3–36.5; O2SAT 93–100; BMI 39.2
--- NOTE | ~2022-07-24 | XR_ITS ---
EXAMINATION: XR chest 1V portable Exam Date/Time: 07/24/2022 20:00 CDT HISTORY: SOB X 1 WEEK Comparison: 12/15/2020. RESULT: Lines, tubes, and devices: Surgical clips project over the right breast and axilla. Lungs and pleura: Patchy bilateral mid right and bilateral lower lung airspace disease. Mild diffuse reticular opacities. Right costophrenic angle blunting. Cardiomediastinal silhouette: Stable. Other: No acute osseous or upper abdominal finding. IMPRESSION: Pulmonary opacities may represent interstitial and alveolar pulmonary edema versus mild interstitial edema with multifocal pneumonia. Possible small right pleural effusion. Reviewed, dictated and finalized at location [facility]. IMPRESSION: Pulmonary opacities may represent interstitial and alveolar pulmonary edema avtar dipesh mild interstitial edema with multifocal pneumonia. Possible small right ple ural effusion.
--- NOTE | ~2022-07-24 | XR_ITS ---
Portable chest x-ray Comparison: 07/24/2022 Clinical History: Edema Findings: There is mild bilateral pulmonary haziness, worst at the right lower lobe. No definite ple ural effusions. Cardiomediastinal silhouette is stable. Bones and soft tissues are unremarkable. Impression: Probable mild pulmonary edema pattern. Correlate clinically for pneumonia. Reviewed, dictated and finalized at [facility]. Impression: Probable mild pulmonary edema pattern. Correlate clinically for pneumonia.
--- NOTE | ~2022-07-24 | XR_ITS ---
EXAMINATION: XR chest 1V portable DATE: 07/28/2022 07:33 INDICATION: Congestive heart failure TECHNIQUE: frontal view of the chest was obtained. COMPARISON: Chest radiograph dated 07/26/2022 FINDINGS: Significant decrease in the prior bilateral increased interstitial pattern with some residual mild pe rihilar opacities consistent with significant improvement in prior pulmonary edema. No pleural effusi on or pneumothorax. Heart size is normal. Small to moderate-sized hiatal hernia. Status post right ma stectomy with surgical clips at the lateral right chest wall. IMPRESSION: 1. Significant improvement in now minimal bilateral perihilar pulmonary edema. 2. Small to moderate sized hiatal hernia. Reviewed, dictated and finalized at location A.
--- NOTE | 2022-07-24 19:40 | ECG_ITS ---
Measurements Intervals Holt Rate: 89 P: 9 PA: 133 QRS: 34 QRSD: 93 T: 8 QT: 346 QTc: 421 Interpretive Statements SINUS RHYTHM MODERATE ST DEPRESSION [0.05+ mV ST DEPRESSION] ABNORMAL ECG COMPARED TO ECG 12/15/2020 16:22:22 ST (T WAVE) DEVIATION NOW PRESENT Electronically Signed On 07-25-2022 8:58:14 CDT by Ulisses Mendoza M.D.
--- NOTE | 2022-07-24 19:43 | ED.SOB ---
HPI - SOB/Dyspnea General Chief Complaint: Shortness of Breath/Dyspnea Stated Complaint: SEVERE RESPIRATORY DISTRESS Time Seen by Provider: 07/24/22 19:43 Source: patient and EMS Mode of arrival: EMS Limitations: clinical condition History of Present Illness HPI Narrative: Patient is an 81-year-old female with a history of hypertension presenting to the emergency department for evaluation of shortness of breath. Patient has had cough, increasing shortness of breath over the course of the day today, she began to have difficulty breathing, EMS was contacted by patient. Upon arrival to her house, oxygen saturation was 78% on room air. Patient has no history of hypoxia, no home oxygen use. Patient was placed on oxygen via nonrebreather, given IV Decadron as well as IV magnesium and a nebulizer treatment. Patient with some improvement but in route began to have worsening dyspnea, thus was placed on CPAP with much improvement in her clinical presentation. Patient reports low-grade fever today and, also noted by EMS crew. Glucose appropriate. No recent sick contacts. Denies congestion, sore throat. Denies significant chest pain, reports mild pressure. Denies abdominal pain. Reports mild nausea during ambulance ride, reports that has resolved. Related Data Home Medications Medication Instructions Recorded Confirmed aspirin 81 mg tablet,delayed 81 mg PO DAILY 04/06/19 04/16/22 release vitamins A,C,X-ytrt-wfeimk 4,296 1 cap PO ONCE 09/14/19 04/16/22 mcg-226 mg-90 mg capsule (PreserVision AREDS) Allergies Allergy/AdvReac Type Severity Reaction Status Date / Time chlorpheniramine Allergy Unknown Unknown Verified 06/17/22 14:00 [Ed A-Hist DM] dextromethorphan Allergy Unknown Unknown Verified 06/17/22 14:00 [Ed A-Hist DM] enalapril Allergy Unknown facial Verified 06/17/22 14:00 swelling phenylephrine [Ed A-Hist DM] Allergy Unknown Unknown Verified 06/17/22 14:00 pseudoephedrine [Aprodine] Allergy Unknown Unknown Verified 06/17/22 14:00 triprolidine [Aprodine] Allergy Unknown Unknown Verified 06/17/22 14:00 Review of Systems Review of Systems: CONSTITUTIONAL: Reports fever EYES: Denies visual changes, redness, or discharge. ENT: Reports mild congestion, rhinorrhea without sore throat. CARDIOVASCULAR: Reports chest pressure without palpitations, or edema. RESPIRATORY: Reports cough and shortness of breath GASTROINTESTINAL: Denies abdominal pain, reports nausea without vomiting GENITOURINARY: Denies dysuria or hematuria. SKIN: Denies rash or itching. MUSCULOSKELETAL: Denies back pain, joint pain, or myalgia. NEUROLOGIC: Denies headache, numbness, or weakness. [facility] Past Medical History Medical History COVID-19 Esophageal web Essential (primary) hypertension Hiatal hernia History of gastroesophageal reflux (GERD) History of right breast cancer (~1989) Impacted cerumen of both ears Internal hemorrhoid Iron deficiency anemia Mixed hyperlipidemia Neck muscle strain Neoplasm of uncertain behavior of skin Obesity Sleep apnea Sleep apnea, unspecified Spinal stenosis, lumbar region, with neurogenic claudication 2018: L4-L5 moderate to severe spinal stenosis/ severe degenerative disc disease Tricompartment osteoarthritis of right knee Wears eyeglasses Surgical History Surgical History History of appendectomy History of cataract extraction (~1994) History of colonoscopy (~02/01/14) History of hernia repair History of right mastectomy Family History Family History Father Hypertension Family history of elevated blood lipids Family history of cardiovascular disease Mother Hypertension Other Family history of malignant neoplasm of breast Social History Social History Babar
[2022-07-24] MEDS: ALBUTEROL SULFATE NEB 2.5 MG/3 ML INH 5 MG INHALATION (19:53)
[2022-07-24] MEDS: IPRATROPIUM BR 0.02% INH SOLN 0.5 MG/2.5 ML VIAL 1 MG INHALATION (19:53)
[2022-07-24 19:56] LABS: Basophils Absolute Auto 0.1 K/mm3 (0.0-0.1); Basophils Percent Auto 0.5 % (0.2-1.2); Eosinophils Absolute Auto 0.4 K/mm3 (0-0.3); Eosinophils Percent Auto 2.1 % (0-4.4); Hematocrit 21.2 % (37.0-47.0); Immature Granulocyte Absolute 0.16 K/mm3 (0.00-0.031); Immature Granulocyte Percent A 0.9 % (0-0.5); Lymphocytes Percent Auto 15.3 % (18.3-44.2); Mean Corpuscular HGB Conc 26.4 g/dl (32-36); Mean Corpuscular Hemoglobin 17.5 pg (26-34); Mean Corpuscular Volume 66.3 fl (80-100); Mean Platelet Volume 9.1 fl (7.4-10.4); Monocytes Percent Auto 11.4 % (2.6-8.5); Neutrophils Absolute Auto 12.4 K/mm3 (1.3-6.7); Neutrophils Percent Auto 69.8 % (45.5-73.1); Nucleated Red Blood Cells Absolute Auto 0.1 K/mm3 (0.0-0.012); Nucleated Red Blood Cells Perc 0.6 % (0.0-0.2); Platelet Count Result 393 k/mm3 (150-375); Red Cell Distribution Width 18.3 % (11.5-14.5); White Blood Count 17.7 K/mm3 (4.5-10.0)
[2022-07-24 20:09] LABS: Alanine Aminotransferase 20 U/L (6-35); Albumin Level 4.4 g/dL (3.5-5.1); Alkaline Phosphatase 66 U/L (38-126); Anion Gap 11 mmol/L (8-16); Aspartate Amino Transferase 32 U/L (14-36); Bilirubin,Total 0.6 mg/dL (0.2-1.3); Blood Urea Nitrogen 18 mg/dL (7-17); Carbon Dioxide 25 mmol/L (22-30); Chloride 100 mmol/L (98-107); Estimated Glomerular Filt Rate 60; Glucose 161 mg/dL (65-110); Lactic Acid Reflex 2.5 mmol/L (0.7-2.0); Potassium 3.2 mmol/L (3.4-5.0); Sodium 136 mmol/L (137-145)
[2022-07-24 20:12] LABS: CRP 3.6 mg/dL (<1.0)
[2022-07-24 20:21] LABS: Alveolar/Arterial O2 Gradient 260.6 mmHg; Base Excess ABG 2.5 mEq/l (+/-2.0); Carboxyhemoglobin 2.1 % THb (0-2.0); Fractional Inspired Oxygen 90 %; HCO3 ABG 25.8 mEq/l (22.0-26.0); Methemoglobin ABG 0.2 %THb (0-1.5); Oxygen Content ABG 8.8 %vol (16.0-22.0); Oxygen Saturation ABG 99.8 % (95.0-100.0); Oxyhemoglobin 96.9 % THb (90.0-100.0); PCO2 ABG 33.2 mmHg (35.0-45.0); PO2 ABG 347.1 mmHg (80.0-100.0); PO2 FiO2 Ratio Arterial Blood 3.86 %; Reduced Hemoglobin 0.8 %THb (0-5.0)
[2022-07-24 20:22] LABS: NT Pro B Type Natriuretic Pept 1740 pg/mL (19.9-100); Troponin I 0.014 ng/mL (0.000-0.034)
[2022-07-24 20:23] LABS: Device NON-INVASIVE VENT; Modified Allen's Test Pass; Site Drawn RIGHT RADIAL; Total Hemoglobin 5.7 g/dL (12.0-18.0); pH ABG 7.508 (7.350-7.450)
[2022-07-24 20:24] LABS: Hemoglobin 5.6 g/dL (12.0-15.0)
[2022-07-24 20:25] LABS: Non-Invasive Expiratory Pressure 6 CMH2O; Non-Invasive Inspiratory Pressure 12 CMH2O; Non-Invasive Vent Rate 16 /MIN
[2022-07-24 20:26] LABS: Platelet Estimate Adequate (Adequate)
[2022-07-24 20:27] LABS: Anisocytosis 3+ (NORMAL); Schistocytes Rare (NORMAL)
[2022-07-24 20:28] LABS: Hypochromasia 2+ (NORMAL); Microcytosis 1+ (NORMAL)
[2022-07-24 21:11] LABS: Influenza A QL RT-PCR Negative (Negative); Influenza B QL RT-PCR Negative (Negative); RSV RNA, RT-PCR Negative (Negative); SARS-CoV-2 RNA PCR Negative (Negative)
--- NOTE | 2022-07-24 21:13 | PM.IMHP ---
H&P: HPI History of Present Illness Date/Time: 07/24/22 21:13 Chief Complaint: Fatigue Narrative: This is an 81-year-old female with past medical history significant for hypertension, dyslipidemia, type diabetes mellitus, GERD, iron deficiency anemia, mixed hyperlipidemia, sleep apnea, spinal stenosis. Patient presented to emergency room due to fatigue, shortness of breath, palpitations, decreased stamina for the last few days, denies any nausea, vomiting, diarrhea, melena, hematemesis, coffee-ground emesis, hematochezia, fevers rigors chills, cough or sputum production, no chest pain, no leg swelling. Preliminary workup was significant for hemoglobin of 5, patient tested negative for influenza type A type B RSV and COVID-19. A chest x-ray was reported as: EXAMINATION:? XR chest 1V portable Exam Date/Time:? 07/24/2022 20:00 CDT HISTORY: SOB X 1 WEEK ? Comparison:? 12/15/2020. RESULT: Lines, tubes, and devices:? Surgical clips project over the right breast and axilla. Lungs and pleura:? Patchy bilateral mid right and bilateral lower lung airspace disease. Mild diffuse reticular opacities. Right costophrenic angle blunting. Cardiomediastinal silhouette:? Stable. Other:? No acute osseous or upper abdominal finding. ? IMPRESSION: Pulmonary opacities may represent interstitial and alveolar pulmonary edema versus mild interstitial edema with multifocal pneumonia. Possible small right pleural effusion. Review of Systems Review of Systems: Fatigue, shortness of breath, decreased stamina, palpitations. Constitutional: Constitutional: Denies chills, Reports fatigue, Denies fever(s), Reports lethargy, Denies malaise and Denies weakness Eyes: Eyes: Denies change in vision ENT: Denies dysphagia and Denies odynophagia Cardiovascular: Cardiovascular: Denies chest pain, Reports rapid heart rate, Denies leg edema, Reports lightheadedness, Denies radiating jaw, neck or arm pain and Reports dyspnea Respiratory: Respiratory: Denies chest congestion, Denies cough, Denies excessive phlegm production and Denies dyspnea Gastrointestinal: Gastrointestinal: Denies abdominal pain, Denies dyspepsia, Denies heartburn, Denies diarrhea, Denies nausea and Denies vomiting Genitourinary: Genitourinary: Reports no additional female genitourinary complaints, Reports as per HPI and Denies dysuria Musculoskeletal: Musculoskeletal: Denies back pain, Denies myalgias, Denies joint swelling and Denies muscle weakness Integumentary/Breasts: Skin/Breast: Denies rash Neurologic: Denies focal weakness and Denies Sensory deficit (Neuro) Psychiatric: Psychiatric: Reports no additional psychiatric complaints and Reports as per HPI Endocrine: Endocrine: Denies cold intolerance, Denies flushing, Denies heat intolerance, Denies polyphagia, Denies polydipsia and Denies palpitations Hematologic/Lymphatic: Hematologic/Lymphatic: Reports no additional hematologic/lymphatic complaints and Reports as per HPI Allergic/Immunologic: Allergic/Immunologic: Reports no additional allergic/immunologic complaints and Reports as per HPI PMFSH Past Medical History Medical History COVID-19 Esophageal web Essential (primary) hypertension Hiatal hernia History of gastroesophageal reflux (GERD) History of right breast cancer (~1989) Impacted cerumen of both ears Internal hemorrhoid Iron deficiency anemia Mixed hyperlipidemia Neck muscle strain Neoplasm of uncertain behavior of skin Obesity Sleep apnea Sleep apnea, unspecified Spinal stenosis, lumbar region, with neurogenic claudication 2018: L4-L5 moderate to severe spinal stenosis/ severe degenerative disc disease Tricompartment osteoarthritis of right knee Wears eyeglasses Surgical History Surgical History History of appendectomy History of cataract extraction (~1994) History of colonoscopy (~02/01/14)
[2022-07-24 21:19] LABS: Lactate Dehydrogenase 252 U/L (120-246)
[2022-07-24] MEDS: FUROSEMIDE INJ 40 MG/4 ML VIAL 20 MG IV PUSH (21:23)
[2022-07-24 21:34] LABS: Iron 14 ug/dL (37-170)
[2022-07-24 21:43] LABS: Percent Iron Saturation 3 % (20-50)
[2022-07-24 21:53] LABS: Partial Thromboplastin Time 30.7 SECONDS (22.3-36.8); Prothrombin Time 13.9 Seconds (11.1-14.7)
[2022-07-24 21:54] LABS: INR 1.1
[2022-07-24] MEDS: FAMOTIDINE 20 MG/2 ML VIAL IV PUSH (21:55)
[2022-07-24 22:13] LABS: Hematocrit 18.9 % (37.0-47.0); Hemoglobin 5.1 g/dL (12.0-15.0)
[2022-07-24 22:20] LABS: Appearance Urine Clear (Clear); Bacteria Urine None Seen /hpf; Bilirubin Urine Negative (Negative); Blood Urine Negative (Negative); Color Urine Yellow (Yellow); Glucose Urine UA Negative (Negative); Ketones Urine Trace mg/dL (Negative); Leukocyte Esterase Ur Trace LEU/UL (Negative); Nitrate Urine Negative (Negative); Non Pathogenic Casts 0-2; Protein Urine Negative (Negative); RBC Urine 0-2 /hpf (0-2); Specific Grav Ur 1.012 (1.001-1.035); Squamous Epithelial Cell Urine None seen /hpf (Few); Urobilinogen Urine 0.2 mg/dL (<2.0); WBC Urine 0-5 /hpf; pH Urine 5.5 (5.0-9.0)
[2022-07-24 22:25] LABS: Add Urine Microscopic? YES
--- NOTE | 2022-07-24 22:38 | PC.NURSE ---
Pt up to bedside commode and back to bed with standby assist. Pt tolerated fairly. She did become very short of breath with activity but states she feels much better compared to when she arrived.
[2022-07-24 22:55] LABS: Reflex Lactic Acid Yes or No Add Lactic
[2022-07-24] MEDS: TUBING, BLOOD PLUM PUMP TUBING 1 EACH XX (22:55)
[2022-07-24] MEDS: SODIUM CHLORIDE 0.9% IV 250 ML 30 ML IV CONT (22:56)
--- NOTE | 2022-07-24 23:01 | ADMGEN ---
This patient, Spring Pelletier, was admitted to IMU Room 212-01. Patient/family oriented to hospital policies and general routines including ID bracelet, bed and alarms, visiting hours, pain management, procedures, bathroom and other care routines, personal items, smoking policy, room service/diet, and visiting hours. Information on how to activate the Rapid Response Team has been discussed. Patient/Family are encouraged to report perceived risks to care and to ask questions if they do not understand what they are told or what they should do.
[2022-07-24 23:40] LABS: Folic Acid > 20.0 ng/mL (2.76->20)
[2022-07-25] VITALS (36 sets, daily range): BP systolic 131–157; BP diastolic 54–98; PULSE 69–105; RESP 16–22; TEMP 35.9–37.7; O2SAT 91–100
[2022-07-25] MEDS: POTASSIUM CHLORIDE 20 MEQ TABLET 40 MEQ PO
--- NOTE | 2022-07-25 | ECHO_ITS ---
Patient Info Name: Spring Pelletier Age: 81 years : 1940 Gender: Female Ht: 58 in Wt: 187 lbs BSA: 1.91 m2 HR: 96 bpm BP: 152 / 98 mmHg Technical Quality: Fair Exam Date: 07/25/2022 1:01 PM Exam Location: [facility] Pulmonary Patient Status: Inpatient Admit Date: 07/24/2022 Staff Ordering Physician: Noah Kumar MD Sprinkler Fitter: Amy Sheriff RDCS Attending Provider: Irving Sanchez MD Exam Type: CA echo doppler color flow Study Info Indications - pulmonary edema Complete two-dimensional, color flow and Doppler transthoracic echocardiogram is performed. Summary 1. Complete two-dimensional, color flow and Doppler transthoracic echocardiogram is performed. 2. Left ventricular chamber dimension is normal. 3. Left ventricular systolic function is normal, estimated at 60-65%. 4. The left ventricular diastolic function is grade II diastolic dysfunction. 5. E/e' 11 is mildly elevated. 6. Global longitudinal strain is abnormal at -14.1%. 7. Left atrial chamber dimension is mildly enlarged. 8. The mitral valve has mildly calcified annulus. 9. There is mild mitral valve regurgitation. 10. Mild pulmonary hypertension, estimated pulmonary arterial systolic pressure is 49 mmHg. Left Ventricle E/e' 11 is mildly elevated. Global longitudinal strain is abnormal at -14.1%. Left ventricular chamber dimension is normal. Left ventricular systolic function is normal, estimated at 60-65%. The left ventricular diastolic function is grade II diastolic dysfunction. Right Ventricle Right ventricular systolic function is normal and with normal TAPSE 3.1 cm. Right ventricular chamber dimension is normal. Left Atria Left atrial chamber dimension is mildly enlarged. Right Atria Right atrial chamber dimension is normal. Aortic Valve The aortic valve is trileaflet. There is no aortic valve stenosis. There is no aortic valve regurgitation. Pulmonic Valve There is no pulmonic regurgitation. Mitral Valve The mitral valve has mildly calcified annulus. There is no mitral valve stenosis. There is mild mitral valve regurgitation. Tricuspid Valve There is no tricuspid valve regurgitation. Mild pulmonary hypertension, estimated pulmonary arterial systolic pressure is 49 mmHg. Pericardium/Pleural There is no pericardial effusion. Inferior Vena Cava Normal inferior vena cava with >50% collapse upon inspiration consistent with normal right atrial pressure, 5 mmHg. Aorta The aortic root size at the sinus of Valsalva is normal. Left Ventricular Outflow Tract Name Value Normal LVOT 2D LVOT Diameter 1.9 cm LVOT Doppler LVOT Peak Gradient 8 mmHg LVOT Mean Gradient 5 mmHg LVOT VTI 30 cm LVOT VTI/AV VTI Ratio 0.7 LVOT Stroke Volume 88 ml LVOT CO 7.3 l/min LVOT CI 3.8 l/min/m2 Pulmonic Valve Name Value Normal RVOT
[2022-07-25 00:56] LABS: Troponin I 0.031 ng/mL (0.000-0.034)
[2022-07-25] MEDS: TUBING, BLOOD PLUM PUMP TUBING 1 EACH XX ×2 (01:30→17:15)
[2022-07-25] MEDS: ALBUTEROL SULFATE NEB 2.5 MG/3 ML INH INHALATION ×4 (02:45→19:59)
[2022-07-25] MEDS: IPRATROPIUM BR 0.02% INH SOLN 0.5 MG/2.5 ML VIAL INHALATION ×4 (02:45→19:59)
[2022-07-25 04:05] LABS: Troponin I 0.024 ng/mL (0.000-0.034)
[2022-07-25 04:44] LABS: Hematocrit 24.3 % (37.0-47.0); Hematocrit 24.5 % (37.0-47.0); Hemoglobin 7.2 g/dL (12.0-15.0); Hemoglobin 7.3 g/dL (12.0-15.0); Mean Corpuscular HGB Conc 29.6 g/dl (32-36); Mean Corpuscular Hemoglobin 20.6 pg (26-34); Mean Corpuscular Volume 69.4 fl (80-100); Mean Platelet Volume 8.7 fl (7.4-10.4); Platelet Count Result 306 k/mm3 (150-375); Red Cell Distribution Width 22.4 % (11.5-14.5); White Blood Count 15.7 K/mm3 (4.5-10.0)
[2022-07-25 04:57] LABS: Anion Gap 7 mmol/L (8-16); Blood Urea Nitrogen 17 mg/dL (7-17); Calcium 8.3 mg/dL (8.4-10.2); Carbon Dioxide 31 mmol/L (22-30); Chloride 99 mmol/L (98-107); Estimated Glomerular Filt Rate 60; Glucose 187 mg/dL (65-110); Potassium 3.6 mmol/L (3.4-5.0); Sodium 137 mmol/L (137-145)
[2022-07-25 09:22] LABS: Hematocrit 24.5 % (37.0-47.0)
--- NOTE | 2022-07-25 10:55 | PM.IMPN ---
Progress Note: A&P Assessment and Plan (1) Acute respiratory failure: Code(s): J96.00 - Acute respiratory failure, unspecified whether with hypoxia or hypercapnia Status: Acute Assessment and Plan: Patient was hypoxic at 78% on room air. No history COPD and not on oxygen. Was placed on oxygen given IV Decadron brought to emergency room for evaluation. She did require CPAP in the ED. able to be weaned to nasal cannula. She was anemic and has undergone blood transfusion. EKG shows ST depression anterior lateral leads. Troponin negative x3. Weaned to room air now. Hypoxia probably related to severe anemia. (2) Acute on chronic anemia: Code(s): D64.9 - Anemia, unspecified Status: Acute Assessment and Plan: Hemoglobin 5.1. Iron studies collected are consistent with iron deficiency. She has been transfused hemoglobin has climbed the 7 range. Consider GI related - she is on meloxicam. Continue Check stool guaiac. Serial H& H. GI consult. Start proton pump inhibitors. Continue to monitor and transfuse as needed. (3) Lung infiltrate: Code(s): R91.8 - Other nonspecific abnormal finding of lung field Status: Acute Assessment and Plan: Patient may have underlying pneumonia. She had low-grade fever prior to admission. No significant cough. Shortness of breath was related to the severe anemia. WBC was elevated. Blood cultures were collected. Consider lung findings are pulmonary edema related to his severe anemia. She was started on IV antibiotics. She was given one dose of lasix IV. Repeat chest x-ray in the morning. Patient started on antibiotics (4) Congestive heart failure: Code(s): I50.9 - Heart failure, unspecified Status: Acute Assessment and Plan: Possible high-output failure. Lasix IV once but unsure if good UOP with this. Continue to monitor daily intake and output. Echocardiogram pending (5) Essential (primary) hypertension: Code(s): I10 - Essential (primary) hypertension Status: Acute Assessment and Plan: Patient's blood pressure was reviewed on 07/25 Blood pressure remains well controlled. Will continue current medications. (6) Spinal stenosis, lumbar region, with neurogenic claudication: Code(s): M48.062 - Spinal stenosis, lumbar region with neurogenic claudication Status: Acute Assessment and Plan: Unchanged Subjective Date/time seen: 07/25/22 10:55 Interval history: 81-year-old female with a history of hiatal hernia/GERD, sleep apnea, HTN and spinal stenosis here for weakness and found to be anemic. Patient feels better today. She denies that she has had episodes melena or hematochezia. No hematemesis. Family in the room mention the patient did have a fever prior to admission. Exam Narrative: AF 96.6 152/98 79 16 100% 2.5L (currenlty on room air) Gen - NARD lying semi recumbent in bed Chest -right greater left bibasilar inspiratory rhonchi otherwise clear. Normal respiratory rate CV - RRR S1/S2. Telemetry showing 1 episode of 8 beat run nonsustained V-tach Abd - Soft, NT/ND, Positive BS Ext - No pitting pedal edema Psych - Nml mood and affect Skin - Warm and dry Objective Data Vital Signs Vital Signs: Vital Signs - 24 hr 07/24/22 19:41 07/24/22 20:31 07/24/22 21:58 Temperature 97.5 F L Pulse Rate 87 86 87 Respiratory Rate 26 H 22 H 24 H Blood Pressure 149/93 H 131/69 143/73 H Pulse Oximetry 100 99 100 Oxygen Delivery BiPAP Oxygen Flow Rate Fraction of Inspired Oxygen 07/24/22 22:15 07/24/22 20:00 07/24/22 22:10 Temperature Pulse Rate 83 Respiratory Rate 22 H Blood Pressure 140/78 Pulse Oximetry 93 100 93 Oxygen Delivery BiPAP Nasal Cannula Oxygen Flow Rate 2 Fraction of Inspired Oxygen 07/24/22 23:12 07/24/22 23:27 07/24/22 22:35 Temperature 97.3 F L 97.7 F 97.3 F L Pulse Rate 81 80 81 Respiratory Rate 20 1
--- NOTE | 2022-07-25 11:11 | ECG_ITS ---
Measurements Intervals [place] Rate: 94 P: 56 IA: 143 QRS: 48 QRSD: 90 T: 30 QT: 374 QTc: 470 Interpretive Statements SINUS RHYTHM MODERATE ST DEPRESSION [0.05+ mV ST DEPRESSION] COMPARED TO ECG 07/24/2022 19:42:10 NO SIGNIFICANT CHANGES Electronically Signed On 07-25-2022 16:06:31 CDT by Vida Piper M.D.
--- NOTE | 2022-07-25 12:15 | WPDGICN ---
Assessment and Plan Assessment and plan (1) Acute on chronic anemia: Code(s): D64.9 - Anemia, unspecified Status: Acute Assessment and Plan: will assess with egd and colonoscopy tomorrow better after blood transfusion no overt gib but recent use of nsaid's (2) Acute respiratory failure: Code(s): J96.00 - Acute respiratory failure, unspecified whether with hypoxia or hypercapnia Status: Acute Assessment and Plan: better after blood transfusion had some lung infiltrate and started on abx (3) Lung infiltrate: Code(s): R91.8 - Other nonspecific abnormal finding of lung field Status: Acute (4) Essential (primary) hypertension: Code(s): I10 - Essential (primary) hypertension Status: Acute (5) Spinal stenosis, lumbar region, with neurogenic claudication: Code(s): M48.062 - Spinal stenosis, lumbar region with neurogenic claudication Status: Acute Assessment and Plan: she tookd nsaid's for 2 weeks (6) NSAID long-term use: Code(s): Z79.1 - USP (current) use of non-steroidal anti-inflammatories (NSAID) Status: Acute Assessment and Plan: discontinued about 1 week ago GI Consult Note Consult date/time: 07/25/22 12:15 Reason for consult: symptomatic anemia HPI: Spring Pelletier is a 81 year old female with past medical history significant for hypertension, type diabetes mellitus, iron deficiency anemia (had egd and colonoscopy 2018, only mild esophagitis with hiatal hernia, colonoscopy with diverticulosis and hemorrhoids- indication was EV but did not require transfusion)- she took iron and vit C for 2-3 months, sleep apnea, spinal stenosis.? She came to emergency room due worsening fatigue, shortness of breath, palpitations, decreased stamina going on for few days. Denies melena, nausea, vomiting, diarrhea or signs of bleeding. Blood work significant for hemoglobin of 5. She received blood transfusion and better. CXR with possible pneumonia and started on abx. She took 2 weeks of ibuprofen 4-6 times a day for almost 2 weeks last time about 1 week ago, no use of AC. Review of Systems Constitutional: Constitutional: Reports fatigue and Reports lethargy Eyes: Eyes: Denies blurry vision ENT: Reports Normal hearing present Cardiovascular: Cardiovascular: Denies leg edema Respiratory: Respiratory: Reports dyspnea on exertion Gastrointestinal: Gastrointestinal: Denies abdominal pain and Denies nausea Genitourinary: Genitourinary: Denies hematuria Musculoskeletal: Musculoskeletal: Reports back pain Integumentary/Breasts: Skin/Breast: Denies rash Neurologic: Denies Abnormal speech present Psychiatric: Psychiatric: Denies confusion [facility] Past Medical History Medical History (Updated 07/25/22 @ 12:20 by Sonu Berrios MD) COVID-19 Esophageal web Essential (primary) hypertension Hiatal hernia History of gastroesophageal reflux (GERD) History of right breast cancer (~1989) Impacted cerumen of both ears Internal hemorrhoid Iron deficiency anemia Mixed hyperlipidemia Neck muscle strain Neoplasm of uncertain behavior of skin NSAID long-term use Obesity Sleep apnea Sleep apnea, unspecified Spinal stenosis, lumbar region, with neurogenic claudication 2018: L4-L5 moderate to severe spinal stenosis/ severe degenerative disc disease Tricompartment osteoarthritis of right knee Wears eyeglasses Surgical History Surgical History History of appendectomy History of cataract extraction (~1994) History of colonoscopy (~02/01/14) History of hernia repair History of right mastectomy Family History Family History Father Hypertension Family history of elevated blood lipids Family history of cardiovascular disease Mother Hypertension Other Family history of malignant neoplasm of breast S
[2022-07-25] MEDS: PANTOPRAZOLE SODIUM IV 40 MG VIAL IV PUSH ×2 (12:52→20:28)
[2022-07-25] MEDS: FLUoxetine HCL 10 MG CAPSULE PO (14:03)
[2022-07-25] MEDS: SIMVASTATIN 20 MG TABLET PO (14:03)
[2022-07-25 15:55] LABS: Hematocrit 23.5 % (37.0-47.0)
[2022-07-25 16:18] LABS: Hemoglobin 6.8 g/dL (12.0-15.0)
[2022-07-25] MEDS: SODIUM CHLORIDE 0.9% IV 250 ML 30 ML IV CONT (17:14)
[2022-07-25] MEDS: polyethylene glycoL 3350 238 GM BOTTLE PO (17:15)
[2022-07-25] MEDS: BISACODYL 5 MG TABLET EC 20 MG PO (17:15)
[2022-07-25] MEDS: ENALAPRIL MALEATE 10 MG TABLET PO (20:27)
[2022-07-25] MEDS: GABAPENTIN 300 MG CAPSULE PO (20:27)
[2022-07-25] MEDS: METOPROLOL SUCCINATE EXT REL 50 MG TABCR PO (20:28)
[2022-07-25 21:50] LABS: Hematocrit 28.8 % (37.0-47.0); Hemoglobin 8.7 g/dL (12.0-15.0)
[2022-07-26] VITALS (28 sets, daily range): BP systolic 116–156; BP diastolic 55–92; PULSE 76–117; RESP 15–24; TEMP 36.9–38.4; O2SAT 92–98
[2022-07-26] MEDS: ALBUTEROL SULFATE NEB 2.5 MG/3 ML INH INHALATION ×3 (02:28→21:38)
[2022-07-26] MEDS: IPRATROPIUM BR 0.02% INH SOLN 0.5 MG/2.5 ML VIAL INHALATION ×3 (02:28→21:38)
[2022-07-26 04:59] LABS: Basophils Absolute Auto 0.1 K/mm3 (0.0-0.1); Basophils Percent Auto 0.4 % (0.2-1.2); Eosinophils Absolute Auto 0.1 K/mm3 (0-0.3); Eosinophils Percent Auto 0.6 % (0-4.4); Hematocrit 27.9 % (37.0-47.0); Hemoglobin 8.3 g/dL (12.0-15.0); Immature Granulocyte Absolute 0.19 K/mm3 (0.00-0.031); Lymphocytes Absolute Auto 2.05 K/mm3 (0.9-3.2); Lymphocytes Percent Auto 10.6 % (18.3-44.2); Mean Corpuscular HGB Conc 29.7 g/dl (32-36); Mean Corpuscular Hemoglobin 21.7 pg (26-34); Monocytes Absolute Auto 2.1 K/mm3 (0.1-0.6); Monocytes Percent Auto 11.1 % (2.6-8.5); Neutrophils Absolute Auto 14.7 K/mm3 (1.3-6.7); Neutrophils Percent Auto 76.3 % (45.5-73.1); Nucleated Red Blood Cells Absolute Auto 0.1 K/mm3 (0.0-0.012); Nucleated Red Blood Cells Perc 0.5 % (0.0-0.2); Platelet Count Result 307 k/mm3 (150-375); Red Blood Count 3.82 M/mm3 (4.2-5.4); Red Cell Distribution Width 23.2 % (11.5-14.5); White Blood Count 19.3 K/mm3 (4.5-10.0)
[2022-07-26 05:21] LABS: Alanine Aminotransferase 20 U/L (6-35); Alkaline Phosphatase 57 U/L (38-126); Anion Gap 7 mmol/L (8-16); Aspartate Amino Transferase 32 U/L (14-36); Bilirubin,Total 0.7 mg/dL (0.2-1.3); Blood Urea Nitrogen 10 mg/dL (7-17); Calcium 8.4 mg/dL (8.4-10.2); Carbon Dioxide 28 mmol/L (22-30); Chloride 101 mmol/L (98-107); Estimated Glomerular Filt Rate > 60; Glucose 98 mg/dL (65-110); Magnesium 1.8 mg/dL (1.6-2.3); Phosphorus 2.5 mg/dL (2.5-4.5); Potassium 2.7 mmol/L (3.4-5.0); Sodium 136 mmol/L (137-145)
[2022-07-26] MEDS: POTASSIUM CHLORIDE INJ 40 MEQ in SODIUM CHLORIDE 0.9% IV 500 ML 130 MEQ IVPB (05:38)
[2022-07-26 06:26] LABS: Anisocytosis 3+ (NORMAL); Hypochromasia 2+ (NORMAL); Microcytosis 1+ (NORMAL); Ovalocytes 1+ (NORMAL); Platelet Estimate Adequate (Adequate); Schistocytes None Seen (NORMAL)
[2022-07-26] MEDS: MAGNESIUM SULF 2 GM/WATER 50ML 2 GM/50 ML BAG IVPB (08:45)
[2022-07-26] MEDS: ENALAPRIL MALEATE 10 MG TABLET PO ×2 (09:40→20:09)
[2022-07-26] MEDS: FLUoxetine HCL 10 MG CAPSULE PO (09:40)
[2022-07-26] MEDS: SIMVASTATIN 20 MG TABLET PO (09:40)
[2022-07-26] MEDS: EZETIMIBE 10 MG TABLET PO (09:40)
[2022-07-26] MEDS: METOPROLOL SUCCINATE EXT REL 50 MG TABCR PO ×2 (09:40→20:09)
[2022-07-26] MEDS: PANTOPRAZOLE SODIUM IV 40 MG VIAL IV PUSH (09:41)
[2022-07-26] MEDS: amLODIPine BESYLATE 5 MG TABLET PO (09:41)
[2022-07-26] MEDS: GABAPENTIN 300 MG CAPSULE PO ×2 (09:41→20:09)
[2022-07-26] MEDS: KCL 20 MEQ/SW 100 ML 100 ML 50 MEQ IVPB (10:18)
[2022-07-26] MEDS: FUROSEMIDE INJ 40 MG/4 ML VIAL 20 MG IV PUSH ×2 (10:59→18:19)
[2022-07-26] MEDS: LACTATED RINGERS 1,000 ML 150 ML IV CONT (12:26)
--- NOTE | 2022-07-26 13:18 | SUR.OPER ---
EGD start 1316 end 1320, Colonoscopy start 1325
--- NOTE | 2022-07-26 13:20 | P.CDI_ITS ---
CDI Query Clarification Request CHF noted in the assessment and plan. Chest Xray 07/24/22 notes pulmonary edema. Patient has received Lasix. BNP was elevated on 07/24/22 lab work. Please specify type and acuity of heart failure if known. * Acute * Chronic * Acute on Chronic * Unknown * Systolic * Diastolic * Combined Systolic and Diastolic * Unknown
--- NOTE | 2022-07-26 13:20 | WPDCDIQUERY2 ---
CDI Query Clarification Request CHF noted in the assessment and plan. Chest Xray 07/24/22 notes pulmonary edema. Patient has received Lasix. BNP was elevated on 07/24/22 lab work. Please specify type and acuity of heart failure if known. Acute Chronic Acute on Chronic Unknown Systolic Diastolic Combined Systolic and Diastolic Unknown
--- NOTE | 2022-07-26 13:45 | PCRCNOTE ---
pt gone for procedure. UPD omitted. RN informed to call RT if pt would like UPD treatment whenever she gets back from procedure.
--- NOTE | 2022-07-26 14:13 | PC.NURSE ---
PURPLE BRUISING ON BILATERAL ARMS
--- NOTE | 2022-07-26 16:42 | PM.IMPN ---
Progress Note: A&P Assessment and Plan (1) Acute respiratory failure: Code(s): J96.00 - Acute respiratory failure, unspecified whether with hypoxia or hypercapnia Status: Acute Assessment and Plan: Patient was hypoxic at 78% on room air. No history COPD and not on oxygen. Was placed on oxygen and given IV Decadron before being brought to the ED for evaluation. She did require CPAP in the ED but able to be weaned to nasal cannula. She was anemic and has undergone blood transfusion. EKG shows ST depression anterior lateral leads but no change on repeat. Troponin negative x3. BNP 1740. Was weaned to room air but back on O2 afte the procedures. Hypoxia probably related to severe anemia and possibly pulmonary edema from high output failure. Wean o2 as tolerated. (2) Acute on chronic anemia: Code(s): D64.9 - Anemia, unspecified Status: Acute Assessment and Plan: Hemoglobin 5.1. Iron studies collected are consistent with iron deficiency. She was transfused 2U PRBC and Hgb climbed to the 7 range. Hgb dropped again and she received a 3rd unit. GI consulted. -EGD showing erosive gastritis with ulcerative changes -[place] showing diverticulosis, rectal polyps with polypectomy and internal hemorrhoids. Continue proton pump inhibitors. Continue to monitor and transfuse as needed. (3) Lung infiltrate: Code(s): R91.8 - Other nonspecific abnormal finding of lung field Status: Acute Assessment and Plan: Patient may have underlying pneumonia vs pulmonary edema. She had low-grade fever prior to admission. No significant cough. Shortness of breath was related to the severe anemia. WBC was elevated and has climbed to 19K. Not on steroids. BCx NGTD. lasix given in ED once. Fever noted. Repeat chest x-ray showing probable pulmonary edema. Will schedule lasix IV for a few doses. Continue IV abx. Monitor WBC. Check MRSA nasal swab. (4) Congestive heart failure: Code(s): I50.9 - Heart failure, unspecified Status: Acute Assessment and Plan: Acute on chronic diastolic CHF from high-output failure. Lasix IV once in ED. Repeat CXR as above. Echo showing EF 60-65% with Grade II diastolic dysfunction and mild pHTN. Start IV Lasix for a few doses. Wean O2 as toelrated. Continue to monitor daily intake and output. (5) Essential (primary) hypertension: Code(s): I10 - Essential (primary) hypertension Status: Acute Assessment and Plan: Patient's blood pressure was reviewed on 07/26 Blood pressure remains well controlled. Will continue current medications. (6) Spinal stenosis, lumbar region, with neurogenic claudication: Code(s): M48.062 - Spinal stenosis, lumbar region with neurogenic claudication Status: Acute Assessment and Plan: Stable. PT/OT. Increase activity Subjective Date/time seen: 07/26/22 16:42 Interval history: 81-year-old female with a history of hiatal hernia/GERD, sleep apnea, HTN and spinal stenosis here for weakness and found to be anemic. She feels tired after the procedures. no CP or SOB. No abdominal pain. Exam Narrative: Tm 101.1 98.8 140/55 85 20 94% 5L Gen - NARD lying almost flat in bed Chest -few scattered rhonchi. Normal respiratory rate CV - RRR S1/S2. Telemetry showing brief episode of SVT Abd - Soft, NT/ND, Positive BS Ext - No pitting pedal edema Psych - Nml mood and affect Skin - Warm and dry Objective Data Vital Signs Vital Signs: Vital Signs - 24 hr 07/25/22 17:08 07/25/22 17:08 07/25/22 17:37 Temperature 98.4 F 98.4 F 98.6 F Pulse Rate 99 99 100 Respiratory Rate 22 H 22 H 22 H Blood Pressure 144/63 H 144/63 H 141/65 H Pulse Oximetry 96 96 99 Oxygen Delivery Oxygen Flow Rate Fraction of Inspired Oxygen 07/25/22 17:37 07/25/22 18:37 07/25/22 20:02 Temperature 98.6 F 98.6 F Pulse Rate 100 105 H Respiratory Rate 22 H 20 Blood Pressure 141/
[2022-07-26 17:33] LABS: Hematocrit 29.7 % (37.0-47.0); Hemoglobin 8.7 g/dL (12.0-15.0)
[2022-07-26 17:42] LABS: Potassium 3.6 mmol/L (3.4-5.0)
[2022-07-26 17:45] LABS: Magnesium 2.2 mg/dL (1.6-2.3)
[2022-07-26] MEDS: POTASSIUM CHLORIDE 20 MEQ TABLET 40 MEQ PO (20:09)
[2022-07-26] MEDS: PANTOPRAZOLE 40 MG TABLET PO (20:10)
[2022-07-27] VITALS (26 sets, daily range): BP systolic 97–140; BP diastolic 48–62; PULSE 71–89; RESP 14–26; TEMP 36–36.6; O2SAT 91–98
[2022-07-27 00:15] LABS: Hematocrit 27.1 % (37.0-47.0)
[2022-07-27] MEDS: IPRATROPIUM BR 0.02% INH SOLN 0.5 MG/2.5 ML VIAL INHALATION ×3 (03:00→14:53)
[2022-07-27] MEDS: ALBUTEROL SULFATE NEB 2.5 MG/3 ML INH INHALATION ×3 (03:00→14:53)
[2022-07-27 05:10] LABS: Basophils Absolute Auto 0.1 K/mm3 (0.0-0.1); Basophils Percent Auto 0.5 % (0.2-1.2); Eosinophils Absolute Auto 0.2 K/mm3 (0-0.3); Eosinophils Percent Auto 1.4 % (0-4.4); Hematocrit 27.1 % (37.0-47.0); Hemoglobin 8.1 g/dL (12.0-15.0); Immature Granulocyte Percent A 0.8 % (0-0.5); Lymphocytes Absolute Auto 2.34 K/mm3 (0.9-3.2); Lymphocytes Percent Auto 17.6 % (18.3-44.2); Mean Corpuscular HGB Conc 29.9 g/dl (32-36); Mean Corpuscular Volume 73.4 fl (80-100); Monocytes Absolute Auto 1.8 K/mm3 (0.1-0.6); Monocytes Percent Auto 13.2 % (2.6-8.5); Neutrophils Absolute Auto 8.9 K/mm3 (1.3-6.7); Neutrophils Percent Auto 66.5 % (45.5-73.1); Nucleated Red Blood Cells Perc 0.2 % (0.0-0.2); Platelet Count Result 300 k/mm3 (150-375); Red Blood Count 3.69 M/mm3 (4.2-5.4); Red Cell Distribution Width 24.4 % (11.5-14.5); White Blood Count 13.3 K/mm3 (4.5-10.0)
[2022-07-27 05:18] LABS: Albumin Level 3.6 g/dL (3.5-5.1); Anion Gap 5 mmol/L (8-16); Blood Urea Nitrogen 11 mg/dL (7-17); Calcium 7.8 mg/dL (8.4-10.2); Carbon Dioxide 31 mmol/L (22-30); Chloride 100 mmol/L (98-107); Estimated Glomerular Filt Rate > 60; Glucose 95 mg/dL (65-110); Magnesium 2.1 mg/dL (1.6-2.3); Phosphorus 2.8 mg/dL (2.5-4.5); Potassium 3.1 mmol/L (3.4-5.0); Sodium 136 mmol/L (137-145)
[2022-07-27 06:35] LABS: Anisocytosis 2+ (NORMAL); Hypochromasia 1+ (NORMAL); Microcytosis 1+ (NORMAL); Ovalocytes 1+ (NORMAL); Platelet Estimate Adequate (Adequate); Schistocytes None Seen (NORMAL)
[2022-07-27] MEDS: GABAPENTIN 300 MG CAPSULE PO ×2 (09:31→20:30)
[2022-07-27] MEDS: METOPROLOL SUCCINATE EXT REL 50 MG TABCR PO ×2 (09:31→20:29)
[2022-07-27] MEDS: FLUoxetine HCL 10 MG CAPSULE PO (09:31)
[2022-07-27] MEDS: PANTOPRAZOLE 40 MG TABLET PO ×2 (09:32→20:31)
[2022-07-27] MEDS: EZETIMIBE 10 MG TABLET PO (09:32)
[2022-07-27] MEDS: amLODIPine BESYLATE 5 MG TABLET PO (09:32)
[2022-07-27] MEDS: ENALAPRIL MALEATE 10 MG TABLET PO ×2 (09:32→20:32)
[2022-07-27] MEDS: FUROSEMIDE INJ 40 MG/4 ML VIAL 20 MG IV PUSH ×2 (09:32→17:30)
[2022-07-27] MEDS: SIMVASTATIN 20 MG TABLET PO (09:32)
[2022-07-27] MEDS: POTASSIUM CHLORIDE 20 MEQ TABLET 40 MEQ PO (12:25)
[2022-07-27] MEDS: ACETAMINOPHEN 325 MG TABLET 650 MG PO (12:25)
--- NOTE | 2022-07-27 15:09 | PM.IMPN ---
Progress Note: A&P Assessment and Plan (1) Acute respiratory failure: Code(s): J96.00 - Acute respiratory failure, unspecified whether with hypoxia or hypercapnia Status: Acute Assessment and Plan: Patient was hypoxic at 78% on room air. No history COPD and not on oxygen. Was placed on oxygen and given IV Decadron before being brought to the ED for evaluation. She did require CPAP in the ED but able to be weaned to nasal cannula. She was anemic and has undergone blood transfusion. EKG shows ST depression anterior lateral leads but no change on repeat. Troponin negative x3. BNP 1740. Hypoxia probably related to severe anemia and possibly pulmonary edema from high output failure. Wean O2 as tolerated. (2) Acute on chronic anemia: Code(s): D64.9 - Anemia, unspecified Status: Acute Assessment and Plan: Hemoglobin 5.1. Iron studies collected are consistent with iron deficiency. She was transfused 2U PRBC and Hgb climbed to the 7 range. Hgb dropped again and she received a 3rd unit. GI consulted. -EGD showing erosive gastritis with ulcerative changes -[place] showing diverticulosis, rectal polyps with polypectomy and internal hemorrhoids. Continue proton pump inhibitors. Continue to monitor HH and transfuse as needed. (3) Lung infiltrate: Code(s): R91.8 - Other nonspecific abnormal finding of lung field Status: Acute Assessment and Plan: Patient may have underlying pneumonia vs pulmonary edema. She had low-grade fever prior to admission. Influenza/COVID negative. No significant cough. Shortness of breath was related to the severe anemia. WBC was elevated but trending down to 13K now. Not on steroids. BCx NGTD. Lasix given in ED once. Fever noted related to atelectasis? Repeat chest x-ray 07/26 showing probable pulmonary edema treated with a few doses of IV Lasix. Continue IV abx. Monitor WBC. MRSA nasal swab pending. Still requiring O2 so will continue Lasix. (4) Congestive heart failure: Code(s): I50.9 - Heart failure, unspecified Status: Acute Assessment and Plan: Acute on chronic diastolic CHF from high-output failure. Lasix IV once in ED. Repeat CXR as above. Echo showing EF 60-65% with Grade II diastolic dysfunction and mild pHTN. Continue IV Lasix. Wean O2 as tolerated. Continue to monitor (5) Essential (primary) hypertension: Code(s): I10 - Essential (primary) hypertension Status: Acute Assessment and Plan: Patient's blood pressure was reviewed on 07/27 Blood pressure remains well controlled. Will continue current medications. (6) Spinal stenosis, lumbar region, with neurogenic claudication: Code(s): M48.062 - Spinal stenosis, lumbar region with neurogenic claudication Status: Acute Assessment and Plan: Stable. Continue PT/OT. Subjective Date/time seen: 07/27/22 15:09 Interval history: 81-year-old female with a history of hiatal hernia/GERD, sleep apnea, HTN and spinal stenosis here for weakness and found to be anemic. Slept well. No SOB or CP. No cough. Some minor WISE when walking in the halls. Having post nasal drainage. Exam Narrative: AF 97.9 117/60 78 16 94% Autopap Gen - NARD lying almost flat in bed with her nasal bipap in place Chest - distant clear BS CV - RRR S1/S2. Telemetry showing no alarms listed Abd - Soft, NT/ND, Positive BS Ext - No pitting pedal edema Psych - Nml mood and affect Skin - Warm and dry Objective Data Vital Signs Vital Signs: Vital Signs - 24 hr 07/26/22 16:00 07/26/22 16:00 07/26/22 18:00 Temperature 98.5 F Pulse Rate 87 89 90 Respiratory Rate 20 Blood Pressure 156/71 H Pulse Oximetry 93 Oxygen Delivery Oxygen Flow Rate 07/26/22 16:00 07/26/22 20:09 07/26/22 20:00 Temperature 98.7 F Pulse Rate 86 92 Respiratory Rate 22 H Blood Pressure 137/69 Pulse Oximetry 93 94 Oxygen Delivery Nasal Cannula
[2022-07-27] MEDS: AZITHROMYCIN 250 MG TABLET PO (20:29)
--- NOTE | 2022-07-27 22:20 | PC.NURSE ---
This patient, Spring Pelletier, was transferred to [ [facility]] on 07/27/22 at 2200. Personal belongings sent with patient. Report given to [ Omkar]. Appropriate documentation sent with patient.
[2022-07-28] VITALS (8 sets, daily range): BP systolic 124–148; BP diastolic 62–80; PULSE 71–90; RESP 16–20; TEMP 36.4–36.8; O2SAT 92–93
[2022-07-28 06:26] LABS: Hematocrit 30.9 % (37.0-47.0); Mean Corpuscular HGB Conc 29.1 g/dl (32-36); Mean Corpuscular Hemoglobin 21.8 pg (26-34); Platelet Count Result 354 k/mm3 (150-375); Red Blood Count 4.12 M/mm3 (4.2-5.4); Red Cell Distribution Width 25.1 % (11.5-14.5); White Blood Count 11.1 K/mm3 (4.5-10.0)
[2022-07-28 06:33] LABS: Anion Gap 7 mmol/L (8-16); Blood Urea Nitrogen 15 mg/dL (7-17); Carbon Dioxide 30 mmol/L (22-30); Chloride 100 mmol/L (98-107); Estimated Glomerular Filt Rate > 60; Glucose 97 mg/dL (65-110); Sodium 137 mmol/L (137-145)
[2022-07-28] MEDS: IPRATROPIUM BR 0.02% INH SOLN 0.5 MG/2.5 ML VIAL INHALATION (07:53)
[2022-07-28] MEDS: ALBUTEROL SULFATE NEB 2.5 MG/3 ML INH INHALATION (07:53)
[2022-07-28] MEDS: FUROSEMIDE INJ 40 MG/4 ML VIAL 20 MG IV PUSH (09:04)
[2022-07-28] MEDS: SIMVASTATIN 20 MG TABLET PO (09:04)
[2022-07-28] MEDS: PANTOPRAZOLE 40 MG TABLET PO (09:04)
[2022-07-28] MEDS: METOPROLOL SUCCINATE EXT REL 50 MG TABCR PO (09:04)
[2022-07-28] MEDS: FLUoxetine HCL 10 MG CAPSULE PO (09:05)
[2022-07-28] MEDS: amLODIPine BESYLATE 5 MG TABLET PO (09:05)
[2022-07-28] MEDS: ENALAPRIL MALEATE 10 MG TABLET PO (09:05)
[2022-07-28] MEDS: EZETIMIBE 10 MG TABLET PO (09:05)
--- NOTE | 2022-07-28 12:36 | PM.DS ---
DS: Admitting Diagnosis Discharge Date 07/28/22 Admitting Diagnosis Weakness DS: Discharge Diagnosis Discharge Diagnosis (1) Acute respiratory failure: Code(s): J96.00 - Acute respiratory failure, unspecified whether with hypoxia or hypercapnia Status: Acute (2) Acute on chronic anemia: Code(s): D64.9 - Anemia, unspecified Status: Acute (3) Lung infiltrate: Code(s): R91.8 - Other nonspecific abnormal finding of lung field Status: Acute (4) Pneumonia: Code(s): J18.9 - Pneumonia, unspecified organism Status: Acute (5) Congestive heart failure: Code(s): I50.9 - Heart failure, unspecified Status: Acute (6) Essential (primary) hypertension: Code(s): I10 - Essential (primary) hypertension Status: Acute (7) Spinal stenosis, lumbar region, with neurogenic claudication: Code(s): M48.062 - Spinal stenosis, lumbar region with neurogenic claudication Status: Acute DS: Summary Hospital Course Reason for hospitalization: 81-year-old female with a history of hiatal hernia/GERD, sleep apnea, HTN and spinal stenosis here for weakness and found to be anemic. Please see H&P for details. Hospital Course: Patient was hypoxic at 78% on room air.? No history COPD and not on oxygen at home.? She was placed on oxygen and given IV Decadron before being brought to the ED for evaluation.? She did require CPAP in the ED but able to be weaned to nasal cannula.? EKG shows ST depression anterior lateral leads but no change on repeat.? Troponin negative x3.? BNP 1740. Hypoxia probably related to severe anemia and possibly pulmonary edema from high output failure. With appropriate treatment, we were able to wean O2 off. She was anemic on admission with Hemoglobin 5.1.? Iron studies collected are consistent with iron deficiency.? She was started on protonix. She was transfused 2U PRBC and Hgb climbed to the 7 range. Hgb dropped again and she received a 3rd unit. Hgb stabilized and climbed to 9.0 range. GI was consulted. -EGD showing erosive gastritis with ulcerative changes -[place] showing diverticulosis, rectal polyps with polypectomy and internal hemorrhoids. CXR on admission showing pulmonary opacities and small right pleural effusion. Patient may have underlying pneumonia vs pulmonary edema.? She had low-grade fever prior to admission and fevers here as well. Influenza/COVID negative. WBC was elevated to 19K but trended down to 11K at discharge. Not on steroids. BCx NGTD. MRSA nasal swb negative. Lasix given in ED once. Treated with IV Lasix and IV abx. Suspected she had PNA and Acute on chronic diastolic CHF from high-output failure. Echo showing EF 60-65% with Grade II diastolic dysfunction and mild pHTN. She worked with PT/OT and was up walking to the bathroom. She had ? Status at Discharge Cognitive/behavioral status at discharge: Stable Time Spent with Patient Time attestation: Total time spent providing and/or coordinating discharge services: 35 minutes Time spent: Greater than 30 minutes Exam Narrative: AF 98.3 124/70 72 16 92% room air Gen - NARD Chest - dfew basilar crackles o/w clear. CV - RRR S1/S2 Abd - Soft, NT/ND, Positive BS Ext - No pitting pedal edema Psych - Nml mood and affect Skin - Warm and dry DS: Data Data Completed and Pending Pending studies at discharge: Pending at discharge 07/26/22 13:25 Surgical [PTH] Routine Surgical [PTH] Routine Labs on day of discharge: Labs from last 24 hours 07/28/22 05:59 WBC 11.1 H RBC 4.12 L Hgb 9.0 L Hct 30.9 L MCV 75.0 L MCH 21.8 L MCHC 29.1 L RDW 25.1 H Plt Count 354 MPV 9.0 Sodium 137 Potassium 4.0 Chloride 100 Carbon Dioxide 30 Anion Gap 7 L BUN 15 Creatinine 0.80 Estim Creat Clear Calc Not Reportable Estimated GFR > 60 Glucose 97 Calcium 8.0 L Preliminary micro results at discharge 07/24/22 20:39 Blood Culture - Pre
--- NOTE | 2022-07-31 09:37 | PC.NURSE ---
Stomach bx shows- reactive changes. No H. pylori. Large intestine with [address] Kumar aware. Results to Dr. Mireles.
[2022-08-01 04:10] LABS: Haptoglobin 210 mg/dL (43-212)
== END 2022-07-28 14:05 | disposition home health service (06) | DRG 811 ==
LOC: ANHED 21:50 → ANHIMU 21:54 → ANH3MEDSUR 07-27 22:04
PROVIDERS: Internal Medicine Gastroenterology; Admitting Provider Internal Medicine; Emergency Provider Emergency Medicine; PCP Family Medicine; Visit Provider Internal Medicine
PROC: 0DJ08ZZ Inspection of Upper Intestinal Tract, Via Natural or Artificial Opening Endoscopic (ICD-10-PCS; CPT 43235; principal; 2022-07-26 13:30)
DX: D64.9 Anemia, unspecified (principal); I50.33 Acute on chronic diastolic (congestive) heart failure; J96.01 Acute respiratory failure with hypoxia; I11.0 Hypertensive heart disease with heart failure; R91.8 Other nonspecific abnormal finding of lung field; I27.20 Pulmonary hypertension, unspecified; M48.062 Spinal stenosis, lumbar region with neurogenic claudication; K29.70 Gastritis, unspecified, without bleeding; K44.9 Diaphragmatic hernia without obstruction or gangrene; K57.30 Diverticulosis of large intestine without perforation or abscess without bleeding; K62.1 Rectal polyp; K64.8 Other hemorrhoids; K64.4 Residual hemorrhoidal skin tags; Z20.822 Contact with and (suspected) exposure to COVID-19; Z79.899 Other long term (current) drug therapy
CPT/HCPCS: 36415; 36430; 36600; 71045; 80048; 80053; 80069; 81001; 82375; 82607; 82746; 82805; 83010; 83050; 83540; 83550; 83605; 83615; 83735; 83880; 84100; 84132; 84484; 85014; 85018; 85025; 85027; 85610; 85730; 86140; 86850; 86900; 86901; 86923; 87040; 87081; 87637; 88305; 93005; 93306; 94640; 96365; 97161; 97165; 99285; A9270; C9113; J0131; J0456; J0696; J1940; J2704; J3475; J3480; J7040; J7050; J7120; P9016

== ENCOUNTER 2022-08-05 12:25 | Outpatient (NON) | payer MEDICARE, SELFPAY ==
[2022-08-05 12:48] LABS: Basophils Absolute Auto 0.1 K/mm3 (0.0-0.1); Eosinophils Absolute Auto 0.3 K/mm3 (0-0.3); Hematocrit 33.9 % (37.0-47.0); Hemoglobin 9.7 g/dL (12.0-15.0); Immature Granulocyte Absolute 0.03 K/mm3 (0.00-0.031); Immature Granulocyte Percent A 0.4 % (0-0.5); Lymphocytes Absolute Auto 1.68 K/mm3 (0.9-3.2); Mean Corpuscular HGB Conc 28.6 g/dl (32-36); Mean Corpuscular Hemoglobin 21.4 pg (26-34); Mean Corpuscular Volume 74.8 fl (80-100); Mean Platelet Volume 8.7 fl (7.4-10.4); Monocytes Absolute Auto 0.8 K/mm3 (0.1-0.6); Neutrophils Absolute Auto 5.5 K/mm3 (1.3-6.7); Neutrophils Percent Auto 65.6 % (45.5-73.1); Platelet Count Result 599 k/mm3 (150-375); Red Blood Count 4.53 M/mm3 (4.2-5.4); Red Cell Distribution Width 25.6 % (11.5-14.5); White Blood Count 8.4 K/mm3 (4.5-10.0)
[2022-08-05 12:58] LABS: Anion Gap 6 mmol/L (8-16); Blood Urea Nitrogen 15 mg/dL (7-17); Calcium 9.1 mg/dL (8.4-10.2); Carbon Dioxide 32 mmol/L (22-30); Chloride 102 mmol/L (98-107); Estimated Glomerular Filt Rate > 60; Glucose 95 mg/dL (65-110); Potassium 3.4 mmol/L (3.4-5.0); Sodium 140 mmol/L (137-145)
[2022-08-05 14:22] LABS: Platelet Estimate Increased (Adequate)
[2022-08-05 14:23] LABS: Anisocytosis 2+ (NORMAL); Large Platelets Present; Platelet Clumps Present; Poikilocytosis 2+ (NORMAL)
[2022-08-05 14:25] LABS: Ovalocytes 1+ (NORMAL); Schistocytes None Seen (NORMAL)
[2022-08-05 14:26] LABS: Microcytosis 1+ (NORMAL)
[2022-08-05 14:27] LABS: Hypochromasia 2+ (NORMAL)
== END 2022-08-05 12:26 | disposition home or self-care (01) ==
PROVIDERS: PCP Family Medicine; Visit Provider Family Medicine
DX: J96.00 Acute respiratory failure, unspecified whether with hypoxia or hypercapnia (principal); J18.9 Pneumonia, unspecified organism; D64.9 Anemia, unspecified; I11.0 Hypertensive heart disease with heart failure
CPT/HCPCS: 80048; 85025

== ENCOUNTER → 2022-09-05 08:55 | Outpatient (CLI) | payer MEDICARE, SELFPAY ==
--- NOTE | ~2022-09-05 | XR_ITS ---
Clinical Indication: Pneumonia PA and lateral views of the chest: Comparison: 07/28/2022 Findings: Probable calcified left midlung granulomas are present. The lungs are otherwise clear, with out evidence of focal consolidation or pleural effusion. Cardiomediastinal silhouette is within norm al limits. Bones and soft tissues are unremarkable. Impression: Calcified left midlung granulomas, otherwise clear lungs. Reviewed, dictated and finalized at location . Impression: Calcified left midlung granulomas, otherwise clear lungs.
== END ==
PROVIDERS: PCP Family Medicine; Visit Provider Family Medicine
DX: J18.9 Pneumonia, unspecified organism (principal); J84.10 Pulmonary fibrosis, unspecified
CPT/HCPCS: 71046

== ENCOUNTER 2022-09-05 09:16 | Outpatient (CLI) | payer MEDICARE, SELFPAY ==
[2022-09-05 17:00] LABS: Kit Draw Collected
== END 2022-09-05 09:17 | disposition home or self-care (01) ==
LOC: ANHGOSHLAB 09:17
PROVIDERS: PCP Family Medicine; Visit Provider Family Medicine
DX: D64.9 Anemia, unspecified (principal)
CPT/HCPCS: 36415

== ENCOUNTER 2022-09-18 11:24 | Emergency (ER) | payer MEDICARE, SELFPAY ==
--- NOTE | ~2022-09-18 | CT_ITS ---
Non-contrast Head CT History: Head injury Technique: Axial non-contrast imaging of the brain was performed. Dose reduction technique was used on this scan by utilizing automated exposure control and iterative reconstruction technique. The dose -length product (DLP) was 605.33 mGy-cm. Findings: There is no evidence of intracranial hemorrhage, mass lesion, or acute infarct. Brain par enchyma appears normal. The ventricles and subarachnoid spaces are normal in size. The calvarium ap pears normal. The visualized paranasal sinuses and mastoid air cells are clear. Impression: No significant abnormality seen. Reviewed, dictated and finalized at location . Impression: No significant abnormality seen.
--- NOTE | ~2022-09-18 | XR_ITS ---
EXAMINATION: XR elbow LT min 3V DATE: 09/18/2022 12:27 INDICATION: Fall with bruising at the left elbow TECHNIQUE: Anteroposterior, two oblique and lateral views of the left elbow were obtained. COMPARISON: None. FINDINGS: Alignment is normal. No fracture or joint effusion. Joint spaces are normal. Soft tissues are unremar kable. IMPRESSION: 1. Negative left elbow radiographs. Reviewed, dictated and finalized at location A.
[2022-09-18 11:27] VITALS: BP 172/89; PULSE 70; RESP 20; TEMP 36; O2SAT 100
[2022-09-18 11:46] VITALS: RESP 18
--- NOTE | 2022-09-18 12:07 | ED.FALL ---
HPI - Fall General Chief Complaint: Fall Stated Complaint: fall, hit head and left elbow pain Time Seen by Provider: 09/18/22 11:43 History of Present Illness HPI Narrative: 80-year-old female here for evaluation after a fall today. Patient states that she was ambulating in her usual state of health carrying a glass candle in her hands when she tripped on a rug on the ground. She fell forward and struck her left elbow and her right forehead against the ground. She denies loss of consciousness. She does not take blood thinners. Since the fall she has had pain in her left elbow and has had a contusion to the right forehead. No visual changes, nausea, vomiting, severe headaches. She did take 650 of Tylenol this morning 6 hours prior to arrival for arthritis. Related Data Home Medications Medication Instructions Recorded Confirmed aspirin 81 mg tablet,delayed 81 mg PO DAILY 04/06/19 08/07/22 release amlodipine 5 mg tablet 5 mg PO DAILY 07/25/22 08/07/22 enalapril maleate 10 mg tablet 10 mg PO BID 07/25/22 08/07/22 ezetimibe 10 mg tablet 10 mg PO DAILY 07/25/22 08/07/22 fluoxetine 10 mg tablet 10 mg PO DAILY 07/25/22 08/07/22 simvastatin 20 mg tablet 20 mg PO DAILY 07/25/22 08/07/22 Allergies Allergy/AdvReac Type Severity Reaction Status Date / Time chlorpheniramine Allergy Unknown Unknown Verified 09/18/22 11:25 [Ed A-Hist DM] dextromethorphan Allergy Unknown Unknown Verified 09/18/22 11:25 [Ed A-Hist DM] phenylephrine [Ed A-Hist DM] Allergy Unknown Unknown Verified 09/18/22 11:25 pseudoephedrine [Aprodine] Allergy Unknown Unknown Verified 09/18/22 11:25 triprolidine [Aprodine] Allergy Unknown Unknown Verified 09/18/22 11:25 Review of Systems Review of Systems: Gen.: Denies fevers or chills Eyes: Denies eye pain or visual change ENT: Denies congestion Respiratory: Denies shortness of breath or cough CV: Denies chest pain or palpitations GI: Denies abdominal pain nausea, emesis or diarrhea : denies burning, urgency, frequency or hematuria Musculoskeletal: Reports elbow pain Neuro: Denies numbness, tingling, weakness or focal weakness Skin: Contusion to forehead Except as documented, all other systems reviewed and negative [facility] Past Medical History Medical History COVID-19 Esophageal web Essential (primary) hypertension Hiatal hernia History of gastroesophageal reflux (GERD) History of right breast cancer (~1989) Impacted cerumen of both ears Internal hemorrhoid Iron deficiency anemia Mixed hyperlipidemia Neck muscle strain Neoplasm of uncertain behavior of skin NSAID long-term use Obesity Sleep apnea Sleep apnea, unspecified Spinal stenosis, lumbar region, with neurogenic claudication 2018: L4-L5 moderate to severe spinal stenosis/ severe degenerative disc disease Tricompartment osteoarthritis of right knee Wears eyeglasses Surgical History Surgical History History of appendectomy History of cataract extraction (~1994) History of colonoscopy (~02/01/14) History of hernia repair History of right mastectomy Family History Family History Father Hypertension Family history of elevated blood lipids Family history of cardiovascular disease Mother Hypertension Other Family history of malignant neoplasm of breast Social History Social History Smoking packs per day: 1 Smoking cigarettes per day: 20.0 Years smoked: 30 Smoking pack-years: 30.00 Smoking status: Former smoker Tobacco type: cigarettes Second hand tobacco smoke exposure: No Smoking end date: 03/30/86 Alcohol intake: current Drinks per week: 1 Substance use: never Substance use type: does not use Lack of Transportation: No Lack of Food: Never True Current Kit
[2022-09-18] MEDS: ACETAMINOPHEN 325 MG TABLET 650 MG PO (13:00)
== END 2022-09-18 13:05 | disposition home or self-care (01) ==
PROVIDERS: Emergency Provider Physician Assistant; PCP Family Medicine
DX: S00.83XA Contusion of other part of head, initial encounter (principal); S50.02XA Contusion of left elbow, initial encounter; I10 Essential (primary) hypertension; E78.2 Mixed hyperlipidemia; D50.9 Iron deficiency anemia, unspecified; K21.9 Gastro-esophageal reflux disease without esophagitis; M17.11 Unilateral primary osteoarthritis, right knee; G47.30 Sleep apnea, unspecified; Z86.16 Personal history of COVID-19; Z85.3 Personal history of malignant neoplasm of breast; Z87.891 Personal history of nicotine dependence; Z98.49 Cataract extraction status, unspecified eye; Z90.11 Acquired absence of right breast and nipple; W18.09XA Striking against other object with subsequent fall, initial encounter
CPT/HCPCS: 70450; 73080; 99284; A9270

== ENCOUNTER 2022-10-22 08:58 | Outpatient (CLI) | payer MEDICARE, SELFPAY ==
[2022-10-22 09:45] LABS: Kit Draw Collected
== END 2022-10-22 08:59 | disposition home or self-care (01) ==
LOC: ANHGOSHLAB 09:00
PROVIDERS: PCP Family Medicine; Visit Provider Family Medicine
DX: D64.9 Anemia, unspecified (principal); R73.03 Prediabetes; Z79.899 Other long term (current) drug therapy
CPT/HCPCS: 36415

== ENCOUNTER → 2022-10-29 11:15 | Outpatient (CLI) | payer MEDICARE, SELFPAY ==
--- NOTE | ~2022-10-29 | XR_ITS ---
Right Knee Technique: AP, lateral, and sunrise views were obtained. Clinical History: Pain Findings: No fracture or dislocation is seen. There is mild tricompartmental degenerative change. Sof t tissues are unremarkable. No joint effusion is seen. Impression: Mild tricompartmental degenerative change. Reviewed, dictated and finalized at location . Impression: Mild tricompartmental degenerative change.
--- NOTE | ~2022-10-29 | XR_ITS ---
Left Knee Technique: AP, lateral, and sunrise views were obtained. Clinical History: Pain Findings: No fracture or dislocation is seen. Osseous alignment is anatomic. Minimal degenerative merissa nges are noted in the. Soft tissues are unremarkable. No joint effusion is seen. Impression: Minimal degenerative changes. Reviewed, dictated and finalized at location . Impression: Minimal degenerative changes.
== END ==
PROVIDERS: PCP Family Medicine; Visit Provider Family Medicine
DX: M25.562 Pain in left knee (principal); M17.11 Unilateral primary osteoarthritis, right knee
CPT/HCPCS: 73562

== ENCOUNTER → 2022-12-06 10:00 | Outpatient (CLI) | payer MEDICARE, SELFPAY ==
--- NOTE | ~2022-12-06 | XR_ITS ---
EXAMINATION: XR hip BI wo pelvis INDICATION: Bilateral hip pain TECHNIQUE: Two views of each hip were obtained. COMPARISON: None available FINDINGS: Bone alignment is normal. There is no acute fracture. There is heterotopic ossification adj acent to the greater tuberosity of the right and left femur. Phleboliths are noted in the pelvis. Mil d osteitis pubis is noted. IMPRESSION: 1. No acute osseous abnormality. Reviewed, dictated and finalized at location B.
--- NOTE | ~2022-12-06 | XR_ITS ---
EXAMINATION: XR sacroiliac joints min 3V INDICATION: Low back pain TECHNIQUE: Three views of the sacroiliac joints are obtained. COMPARISON: None available FINDINGS: No erosion or sclerosis of the sacroiliac joints. There is no fracture. There is severe spo ndylosis of the visualized lumbar spine. Surgical changes are noted in the pelvis. IMPRESSION: 1. No acute osseous abnormality of the sacroiliac joints. Reviewed, dictated and finalized at location B.
--- NOTE | ~2022-12-06 | XR_ITS ---
EXAMINATION: XR lumbar spine 6V w bending DATE: 12/06/2022 10:27 INDICATION: Low back pain TECHNIQUE: Anteroposterior, lateral in neutral, flexion and extension, and bilateral oblique views of the lumbar spine, and cone-down lateral view of the lumbosacral junction were obtained. COMPARISON: 06/24/2022 FINDINGS: There are 2 mm of retrolisthesis of L2 on L3 and 4 mm of anterolisthesis of L5 on S1. No hy permobility is present with flexion or extension. There is moderate loss of intervertebral disc space height at L4-5 and L5-S1 and mild loss of disc space height throughout the remainder of the lumbar s pine. There is severe loss of intervertebral disc space height at T12-L1. There is severe facet joint osteoarthritis of the lower lumbar spine. IMPRESSION: 1. Severe lumbar spondylosis without acute findings or significant interval change. Reviewed, dictated and finalized at location B. IMPRESSION: 1. Severe lumbar spondylosis without acute findings or significant interval merissa nge.
== END ==
PROVIDERS: PCP Family Medicine; Visit Provider Anesthesiology Pain Medicine
DX: M25.552 Pain in left hip (principal); M25.551 Pain in right hip; M43.06 Spondylolysis, lumbar region
CPT/HCPCS: 72114; 72202; 73521

== ENCOUNTER → 2023-01-16 10:24 | Outpatient (CLI) | payer MEDICARE, SELFPAY ==
--- NOTE | ~2023-01-16 | MR_ITS ---
MRI of the lumbar spine Clinical History: Spinal stenosis Technique: Axial T2-weighted images, and sagittal T1-weighted, T2-weighted, and T2 fat-sat images wer e acquired. COMPARISON: 05/05/2017 Findings: No acute fracture seen. 5 mm retrolisthesis of T12 over L1 noted. 3 mm retrolisthesis of L1 over L2 present. 3 mm retrolisthesis of L2 over L3 present. No suspicious bone marrow signal abnorma lity seen. At T12-L1, there is disc bulge and moderate facet arthropathy, with moderate canal stenosis and proba ble mild compression of the conus medullaris. There is advanced bilateral neural foraminal narrowing, right worse than left. At L1-L2, there is disc bulge and moderate facet arthropathy, with mild central canal stenosis and pr obable left lateral recess stenosis. There is severe left neural foraminal narrowing and moderate rig ht neural foraminal narrowing. At L2-L3, there is diffuse disc bulge and severe facet arthropathy. There is severe central canal [place] nosis/thecal sac compression. There is severe right neural foraminal narrowing, and moderate to sever e left neural foraminal narrowing. At L3-L4, there is diffuse disc bulge and severe facet arthropathy, resulting in severe spinal canal stenosis/thecal sac compression. There is severe bilateral neural foraminal compromise. At L4-L5, there is diffuse disc bulge and advanced facet arthropathy, resulting in moderate to severe spinal canal stenosis/thecal sac compression. There is severe bilateral neural foraminal narrowing. At L5-S1, there is disc bulge and severe facet arthropathy, with mild central canal stenosis. There i s moderate left neural foraminal narrowing, and severe right neural foraminal narrowing. Paravertebral soft tissues are unremarkable. Impression: Severe degenerative spondylosis throughout the lumbar spine, as detailed above. There is multilevel m oderate/severe spinal canal stenosis and multilevel severe neural foraminal narrowing. 5 mm retrolisthesis of T12 over L1. 3 mm retrolisthesis of L1 over L2. 3 mm retrolisthesis of L2 over L3. Reviewed, dictated and finalized at location M. Impression: Severe degenerative spondylosis throughout the lumbar spine, as detailed above. There is multilevel moderate/severe spinal canal stenosis and multilevel sever e neural foraminal narrowing. 5 mm retrolisthesis of T12 over L1. 3 mm retrolisthesis of L1 over L2. 3 mm retrolisthesis of L2 over L3.
== END ==
PROVIDERS: PCP Family Medicine; Visit Provider Anesthesiology Pain Medicine
DX: M48.062 Spinal stenosis, lumbar region with neurogenic claudication (principal); M47.816 Spondylosis without myelopathy or radiculopathy, lumbar region
CPT/HCPCS: 72148

== ENCOUNTER 2023-02-28 09:19 | Outpatient (CLI) | payer MEDICARE, SELFPAY ==
[2023-02-28 09:59] LABS: Anion Gap 11 mmol/L (8-16); Blood Urea Nitrogen 19 mg/dL (7-17); Calcium 10.1 mg/dL (8.4-10.2); Carbon Dioxide 28 mmol/L (22-30); Chloride 102 mmol/L (98-107); Estimated Glomerular Filt Rate > 60; Glucose 89 mg/dL (65-110); Potassium 4.3 mmol/L (3.4-5.0); Sodium 141 mmol/L (137-145)
== END 2023-02-28 09:20 | disposition home or self-care (01) ==
PROVIDERS: Anesthesiology; PCP Family Medicine; Visit Provider Anesthesiology Pain Medicine
DX: Z01.818 Encounter for other preprocedural examination (principal); Z79.899 Other long term (current) drug therapy
CPT/HCPCS: 36415; 80048

== ENCOUNTER 2023-03-04 00:23 | Day surgery (SDC) | payer MEDICARE, SELFPAY ==
[2023-02-26 10:35] VITALS: BMI 37.7
--- NOTE | 2023-02-26 10:47 | PC.NURSE ---
Report to the Outpatient Waiting Room, entrance under the green pavilion located off [facility], at time _0600_ on date _03/04/23_. Planned Procedure Time: _0730_. Time changes happen often and if your time is changed the preop area will call you the afternoon before. - You and your visitor will be asked to self-screen and do not enter if you have any COVID symptoms. - A mask is optional within the hospital at this time. Patients may have clear liquids (water, carbonated beverages, clear teas, apple juice) until 3 hours prior to surgery (0430 AM) with a maximum of 20 ounces. - No food from midnight until time of surgery Take the following medications with a SIP of water the morning of surgery: _AMLODIPINE, METOPROLOL & TYLENOL IF NEEDED_ DO NOT STOP ANY OF YOUR OTHER PRESCRIPTION MEDICATIONS PRIOR TO SURGERY ?EXCEPT THE FOLLOWING Medications to discontinue per ANESTHESIA -_ALL VITAMINS & SUPPLEMENTS 3 DAYS PRIOR TO SURGERY, Date to take last dose 02/28/23_ Please no make-up, nail french, hairspray, perfume, deodorant, or body powder the day of surgery. No jewelry (including any body piercings) or valuables the day of surgery, leave them at home. Please take a shower or bath the night before, or the morning of, surgery with an antibacterial soap. Wear comfortable, loose fitting clothing. - Jewelry must be removed prior to entering the operating room. Rings and piercings that are not removed may be cut off. - The hospital will not accept responsibility for valuables. - Please leave all valuables, including medications, at home the day of surgery. If you are going home after surgery, a licensed nascar driver must drive you home. - NO public transportation without another adult if you receive anesthesia. - We recommend that an adult stay with you for 24 hours following discharge. - We also recommend that you do not drive, make important decision, drink alcoholic beverages, or take any drugs that were not prescribed by your health care provider for at least 24 hours after your discharge time. Follow any additional instructions given to you from your surgeon. If you or anyone in your household have experienced Covid symptoms in the past week, please notify your surgeon or the nurse liaison at the phone number below for possible testing. Telephone instructions given to _PATIENT_and asked if any additional questions and then verbalized understanding. Patient advised to call surgeon office or pre surgery nurse liaison [phone] if any additional questions.
[2023-03-04] VITALS (11 sets, daily range): BP systolic 130–209; BP diastolic 59–81; PULSE 62–90; RESP 15–20; TEMP 36.7–36.8; O2SAT 92–100
--- NOTE | ~2023-03-04 | XR_ITS ---
XR fluoroscopy no charge Indication: Lumbar decompression TECHNIQUE: Fluoroscopy used during Lumbar decompression performed by [Jayden Ya MD] on . 5 minutes 22 seconds of fluoroscopy with 9 fluoroscopic images captured. FINDINGS: Correlate with procedure note. IMPRESSION: Fluoroscopy used during Lumbar decompression. Reviewed, dictated and finalized at location D. FICIAL STONE APPLICATOR
--- NOTE | 2023-03-04 04:10 | PM.HPGS ---
History of Present Illness History of Present Illness Consent: Risks, benefits, and alternatives have been discussed and questions answered. Patient agrees to proceed with procedure. Chief complaint: Lumbar spinal stenosis w/ neurogenic claudication Narrative: Spring Pelletier is a 82 year old female with chronic, recalcitrant and activity limiting low back and lower extremity pain with walking greater than 150ft, standing longer than 5-7 minutes secondary to neurogenic claudication from multilevel moderate to severe central canal stenosis and ligamentum flavum hypertrophy despite maximal conservative efforts over the past several years. Presents for MILD procedure under fluoroscopy bilaterally at L2-3, L3-4, L4-5. Review of Systems Review of Systems: All systems reviewed & are unremarkable except as noted in HPI and below (HPI) [facility] Past Medical History Medical History Acute on chronic anemia gi bleed/ 4.2022 EGD showing erosive gastritis with ulcerative changes Acute respiratory failure COVID-19 Esophageal web Hiatal hernia History of gastroesophageal reflux (GERD) History of right breast cancer (~1989) Internal hemorrhoid Iron deficiency anemia NSAID long-term use Sepsis with acute hypoxic respiratory failure Sleep apnea Spinal stenosis, lumbar region, with neurogenic claudication 2018: L4-L5 moderate to severe spinal stenosis/ severe degenerative disc disease Symptomatic anemia Tricompartment osteoarthritis of right knee Wears eyeglasses Surgical History Surgical History History of appendectomy History of cataract extraction (~1994) History of colonoscopy (~02/01/14) History of hernia repair History of right mastectomy Family History Family History Father Hypertension Family history of elevated blood lipids Family history of cardiovascular disease Mother Hypertension Other Family history of malignant neoplasm of breast Social History Social History Smoking packs per day: 1 Smoking cigarettes per day: 20.0 Years smoked: 30 Smoking pack-years: 30.00 Smoking status: Former smoker Tobacco type: cigarettes Second hand tobacco smoke exposure: No Smoking end date: 03/30/86 Alcohol intake: current Drinks per week: 6 Substance use: never Substance use type: does not use Lack of Transportation: No Lack of Food: Never True Current Housing: I Have Housing Concerned About Future Housing: No Difficulty Paying Gas/Electric Bills: No Difficulty Paying for Meds: No Currently Unemployed: No Education: High School Diploma/GED Difficulty w/ Childcare or Family Care: YES Living arrangements: with family Additional living arrangements comments: PT LIVES WITH SPOUSE Occupation/Education: retired Gender identity (if verbalized by the patient): Female Spiritual care concerns: No Agree to blood products: Yes Meds Home Medications and Allergies Home Medications Medication Instructions Recorded Confirmed Type ezetimibe 10 mg tablet 10 mg PO DAILY 07/25/22 02/26/23 History fluoxetine 10 mg tablet 10 mg PO DAILY 07/25/22 02/26/23 History enalapril maleate 10 mg tablet 10 mg PO BID #180 tabs 10/08/22 02/26/23 Rx CPAP #1 ea 10/22/22 02/26/23 Rx furosemide 20 mg tablet 20 mg PO DAILY #90 tabs 10/29/22 02/26/23 Rx amlodipine 5 mg tablet 5 mg PO DAILY #90 tabs 11/11/22 02/26/23 Rx simvastatin 20 mg tablet 20 mg PO DAILY #90 tabs 01/28/23 02/26/23 Rx metoprolol succinate 25 mg 50 mg PO BID #120 tabs 02/17/23 02/26/23 Rx tablet,extended release 24 hr Vitamin C 1 tab-cap DAILY 02/26/23 02/26/23 History acetaminophen 500 mg tablet 1,000 mg PO Q6H PRN Pain 02/26/23 02/26/23 History calcium carbonate 600 mg-vitamin 1 tablet PO DAILY 02/26/23 02/26/23 H
--- NOTE | 2023-03-04 04:20 | WPDHPUPDATE1 ---
History and Physical Update Update Date/Time: 03/04/23 04:20 History and Physical has been reviewed, including an updated exam of the patient. There are NO changes in the patient's condition. Risks, benefits, and alternatives have been discussed and questions answered. Patient agrees to proceed with procedure.
[2023-03-04] MEDS: LACTATED RINGERS 1,000 ML 30 ML IV CONT (06:45)
--- NOTE | 2023-03-04 07:01 | WPDANESEPPF ---
Anes - Initial Pre Proc Eval Procedure: Operation Date: 03/04/23 07:30 Proposed Procedures p L2-3, L3-4, L4-5 Minimally Invasive Lumbar Decompression - Jayden Ya MD Date/Time: 03/04/23 07:01 Surgeon: Jayden Ya MD Pre Op Diagnosis: Lumbar spinal stenosis w/ neurogenic claudication Patient Data Age: 82 Gender: F Height: 1.47 m Weight: 81.81 kg Allergies Allergy/AdvReac Type Severity Reaction Status Date / Time No Known Allergies Allergy Unverified 03/04/23 06:18 Home Medications Medication Instructions Recorded Confirmed Type ezetimibe 10 mg tablet 10 mg PO DAILY 07/25/22 03/04/23 History fluoxetine 10 mg tablet 10 mg PO DAILY 07/25/22 03/04/23 History enalapril maleate 10 mg tablet 10 mg PO BID #180 tabs 10/08/22 03/04/23 Rx CPAP #1 ea 10/22/22 02/26/23 Rx furosemide 20 mg tablet 20 mg PO DAILY #90 tabs 10/29/22 03/04/23 Rx amlodipine 5 mg tablet 5 mg PO DAILY #90 tabs 11/11/22 03/04/23 Rx simvastatin 20 mg tablet 20 mg PO DAILY #90 tabs 01/28/23 03/04/23 Rx metoprolol succinate 25 mg 50 mg PO BID #120 tabs 02/17/23 03/04/23 Rx tablet,extended release 24 hr Vitamin C 1 tab-cap DAILY 02/26/23 03/04/23 History acetaminophen 500 mg tablet 1,000 mg PO Q6H PRN Pain 02/26/23 03/04/23 History calcium carbonate 600 mg-vitamin 1 tablet PO DAILY 02/26/23 03/04/23 History D3 5 mcg (200 unit) tablet cholecalciferol (vitamin D3) 1 tab-cap DAILY 02/26/23 03/04/23 History gabapentin 300 mg capsule 300 mg PO HS 02/26/23 03/04/23 History multivitamin 1 tablet DAILY 02/26/23 03/04/23 History Patient hx anesthesia problems: none Family hx anesthesia problems: none Results Review: All pre-operative results and documents have been reviewed as part of the pre-operative evaluation. [facility] Past Medical History Medical History Acute on chronic anemia gi bleed/ .2022 EGD showing erosive gastritis with ulcerative changes Acute respiratory failure COVID-19 Esophageal web Hiatal hernia History of gastroesophageal reflux (GERD) History of right breast cancer (~1989) Internal hemorrhoid Iron deficiency anemia NSAID long-term use Sepsis with acute hypoxic respiratory failure Sleep apnea Spinal stenosis, lumbar region, with neurogenic claudication 2018: L4-L5 moderate to severe spinal stenosis/ severe degenerative disc disease Symptomatic anemia Tricompartment osteoarthritis of right knee Wears eyeglasses Surgical History Surgical History History of appendectomy History of cataract extraction (~1994) History of colonoscopy (~02/01/14) History of hernia repair History of right mastectomy Family History Family History Father Hypertension Family history of elevated blood lipids Family history of cardiovascular disease Mother Hypertension Other Family history of malignant neoplasm of breast Social History Social History Smoking packs per day: 1 Smoking cigarettes per day: 20.0 Years smoked: 30 Smoking pack-years: 30.00 Smoking status: Former smoker Tobacco type: cigarettes Second hand tobacco smoke exposure: No Smoking end date: 03/30/86 Alcohol intake: current Drinks per week: 6 Substance use: never Substance use type: does not use Lack of Transportation: No Lack of Food: Never True Current Housing: I Have Housing Concerned About Future Housing: No Difficulty Paying Gas/Electric Bills: No Difficulty Paying for Meds: No Currently Unemployed: No Education: High School Diploma/GED Difficulty w/ Childcare or Family Care: YES Living arrangements: with family Additional living arrangements comments: PT LIVES WITH SPOUSE Occupation/Education: retired Gender identity (if verbalized by the patient): Female Spiritual care concern
--- NOTE | 2023-03-04 07:14 | SUR.PREOP ---
0657-Dr. Calderon aware of pt's B/Ps and Amlodipine/Metoprolol doses taken @ 0500. No orders received.
[2023-03-04] MEDS: ceFAZolin 2 GM/D5W 50 ML 2 GM/50 ML BAG IVPB (07:30)
[2023-03-04] MEDS: BUPIVACAINE/EPINEPHRINE 0.5% 50 ML VIAL 10 ML INFILTRATE (08:00)
[2023-03-04] MEDS: LIDO 1%/EPINEPHRINE 1:100,000 50 ML VIAL 10 ML INFILTRATE (08:01)
--- NOTE | 2023-03-04 09:14 | W.PM.PROC2 ---
Procedure Note - Detailed Date of Procedure 03/04/23 Pre-op Diagnosis Lumbar spinal stenosis w/ neurogenic claudication Post-op Diagnosis Same Procedure Performed Bilateral L2-3. L3-4, L4-5 minimally invasive lumbar decompression with fluoroscopy. Surgeon Jayden Ya MD Anesthesia General and Local Description of Procedure INFORMED CONSENT: Risks, benefits, and alternatives to the procedure were discussed in detail with the patient who expressed explicit understanding and consent to proceed. Risks discussed with the patient included but were not limited to risk of serious local or systemic infection, bleeding/bruising, epidural hematoma, dural puncture or tear resulting in CSF leak and acute or chronic post-dural puncture headache, scarring/deformity, immediate or delayed allergic reaction, decreased mobility, failure to treat pain, inadvertent neurologic injury resulting in increased pain, weakness/paralysis or numbness, inadvertent organ injury, need for additional surgery, allergic reaction, heart attack, stroke, seizure, coma, . Anesthetic risks were also briefly discussed by myself and the python java developer. The patient expressed understanding and consent to proceed, agreeing that potential benefits outweigh risk of harm. All materials required for the procedure were immediately available prior to procedure start. Site and side were confirmed with the patient, compared carefully to the patient chart and consent, and marked prior to transport to the operating room. Appropriate time out procedure was performed per protocol prior to procedure start. PROCEDURE IN DETAIL: The patient was brought to the operative suite and placed in the supine position. Appropriate ASA standard monitors were attached. Anesthesia was initiated without difficulty or event. Eyes were protected. Patient was transitioned to the prone position. Pressure points were padded with joints in neutral position. When appropriate, breasts and genitals were evaluated and protected. Eyes were checked and were free from undue pressure. Skin overlying the procedure site was marked with sterile marker. Surgical area was prepared in a typical sterile fashion with ChloraPrep and allowed to dry for at least 3 minutes prior to sterilely draping the surgical site. The lumbar spine was identified in the AP fluoroscopic view with slight cephalad tilt perfectly aligning the endplates at the targeted levels with spinous processes bisecting the transpedicular plane. After identifying the intended incision site approximately 1.5 levels inferior to the level of interest, the area was anesthetized by infiltration with no more than 10ml of a 1:1 admixture of 0.5% PF bupivacaine with epinephrine and 2% PF lidocaine with epinepherine via a 27-gauge needle after negative aspiration. A 22-gauge spinal needle was used to provide additional and adequate local anesthesia to the level of the interspinous ligament, ligamentum flavum and the periosteum of the lamina at the intended treatment levels. In the AP view, a #11 scalpel blade was used to create a single stab incision at the intended incision site on the targeted side. The Vertos MILD kit was opened and the included cannula and trocar assembly was advanced through the incision to contact the midportion of the right lamina just adjacent to the spinous process at L5. Once seated, the lateral view was used to gauge depth demonstrating the most anterior tip of the trocar posterior to the epidural space at all times. The hiv prevention specialist-provided cannula stabilizer was placed over the trocar flush to the patient's lumbar flank. Cannula obturator with handle was removed. Included depth guide was then attached to the insertion port on the cannula and set to an intial depth of 15 mm. The bone rongeur was advanced to the depth of the lumbar lamina at the targeted level. Depth gauge was then adjusted allowing rongeur tip to advance in the contralateral oblique view to
[2023-03-04] MEDS: fentaNYL CITRATE INJ (*CRX) 100 MCG/2 ML VIAL 25 MCG IV PUSH ×6 (09:28→10:03)
[2023-03-04] MEDS: oxyCODONE HCL (*CRX) 5 MG TAB IR PO (10:30)
== END 2023-03-04 12:02 | disposition home or self-care (01) ==
PROVIDERS: PCP Family Medicine; Visit Provider Anesthesiology Pain Medicine
PROC: (CPT 0275T; principal; 2023-03-04 07:30)
DX: M48.062 Spinal stenosis, lumbar region with neurogenic claudication (principal); D64.9 Anemia, unspecified; K21.9 Gastro-esophageal reflux disease without esophagitis; D50.9 Iron deficiency anemia, unspecified; G47.30 Sleep apnea, unspecified; E66.9 Obesity, unspecified; Z68.37 Body mass index [BMI] 37.0-37.9, adult; Z98.890 Other specified postprocedural states; Z87.891 Personal history of nicotine dependence; Z85.3 Personal history of malignant neoplasm of breast; Z82.49 Family history of ischemic heart disease and other diseases of the circulatory system; Z80.3 Family history of malignant neoplasm of breast; Z00.6 Encounter for examination for normal comparison and control in clinical research program
CPT/HCPCS: 0275T; 36415; 80048; 99199; A9270; C1889; J0330; J0690; J1100; J2405; J2704; J3010; J7120

== ENCOUNTER 2023-03-25 10:19 | Outpatient (CLI) | payer MEDICARE, SELFPAY ==
[2023-03-25 19:36] LABS: Anion Gap 12 mmol/L (8-16); Blood Urea Nitrogen 18 mg/dL (7-17); Calcium 9.6 mg/dL (8.4-10.2); Carbon Dioxide 24 mmol/L (22-30); Chloride 105 mmol/L (98-107); Estimated Glomerular Filt Rate > 60; Glucose 91 mg/dL (65-110); Sodium 141 mmol/L (137-145)
[2023-03-25 19:40] LABS: Basophils Percent Auto 0.6 % (0.2-1.2); Eosinophils Absolute Auto 0.2 K/mm3 (0-0.3); Eosinophils Percent Auto 3.5 % (0-4.4); Hemoglobin 12.2 g/dL (12.0-15.0); Immature Granulocyte Absolute 0.02 K/mm3 (0.00-0.031); Immature Granulocyte Percent A 0.3 % (0-0.5); Lymphocytes Absolute Auto 2.18 K/mm3 (0.9-3.2); Lymphocytes Percent Auto 31.5 % (18.3-44.2); Mean Corpuscular HGB Conc 29.8 g/dl (32-36); Mean Corpuscular Hemoglobin 27.1 pg (26-34); Mean Corpuscular Volume 90.9 fl (80-100); Mean Platelet Volume 9.8 fl (7.4-10.4); Monocytes Absolute Auto 0.7 K/mm3 (0.1-0.6); Monocytes Percent Auto 9.4 % (2.6-8.5); Neutrophils Absolute Auto 3.8 K/mm3 (1.3-6.7); Neutrophils Percent Auto 54.7 % (45.5-73.1); Platelet Count Result 282 k/mm3 (150-375); Red Blood Count 4.51 M/mm3 (4.2-5.4); Red Cell Distribution Width 13.6 % (11.5-14.5); White Blood Count 6.9 K/mm3 (4.5-10.0)
[2023-03-25 20:17] LABS: Hypochromasia 1+ (NORMAL); Ovalocytes 1+ (NORMAL); Platelet Estimate Adequate (Adequate)
[2023-03-25 20:18] LABS: Schistocytes None Seen (NORMAL)
[2023-04-01 11:55] LABS: Kit Draw Collected
== END 2023-03-25 10:20 | disposition home or self-care (01) ==
PROVIDERS: PCP Family Medicine; Visit Provider Physician Assistant
DX: D64.9 Anemia, unspecified (principal); I11.0 Hypertensive heart disease with heart failure; I50.9 Heart failure, unspecified
CPT/HCPCS: 36415; 80048; 82728; 85025

== ENCOUNTER 2023-04-18 19:34 | Emergency (ER) | payer OTHER, SELFPAY ==
--- NOTE | ~2023-04-18 | CT_ITS ---
EXAMINATION: CT diagnostic chest w con DATE: 04/19/2023 02:43 INDICATION: Fever, left lower lobe crackles. Nausea. Weakness. TECHNIQUE: Computed tomography (CT) of the chest was performed with 75 CC Omnipaque 350 intravenous c ontrast. Automated exposure control and iterative reconstruction technique were employed. Exam dose: 274.88 mGy-cm total exam DLP. COMPARISON: 04/18/2023 PA and lateral chest FINDINGS: The lungs are clear of infiltrate or consolidation. No suspicious pulmonary mass lesion. Heart size is within normal range. There are occasional calcified pleural plaques, more numerous on the left, suggesting prior asbestos exposure. Mild thoracic aortic aneurysm, the posterior aortic arch measuring up to 3.2 cm diameter. There is at herosclerotic calcification of the thoracic and abdominal aorta, great vessels and prominent calcific ation at the origin of the left main coronary artery. Prominent calcification at the origins of the c eliac and renal arteries. No hilar or mediastinal mass lesion or lymphadenopathy. There is a large sliding hiatal hernia. 1.6 cm lateral segment left hepatic cyst. Probable small hepatic dome cyst. Likely benign approximately 1.4 cm hypoattenuating lesion of the posterior aspect of the spleen. Prominent bilateral glenohumeral osteoarthritis. Approximately 6.8 cm upper pole right renal cyst. 3.5 cm lateral mid left renal cyst. Normal morphology of the adrenal glands. Severe degenerative disc disease at C5-6 and C6-7. Degenerative changes of the thoracic and lumbar sp ine. Probable hemangioma of T8. 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 Reviewed, dictated and finalized at location A. 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
--- NOTE | ~2023-04-18 | XR_ITS ---
EXAMINATION: XR chest 2V DATE: 04/18/2023 23:27 INDICATION: Fever, cough, shortness of breath TECHNIQUE: PA and lateral views of the chest are obtained. COMPARISON: 09/05/2022 FINDINGS: The lungs are free of acute opacities. No pleural effusion or pneumothorax. The cardiomedia stinal silhouette is normal. There is severe thoracic spondylosis. Surgical clips are noted in the ri ght breast. IMPRESSION: 1. No acute cardiopulmonary abnormality. Reviewed, dictated and finalized at location F. FACTURING TECHNOLOGY ANALYST
[2023-04-18 19:37] VITALS: BP 181/78; PULSE 80; RESP 18; TEMP 36.7; O2SAT 93
[2023-04-18 23:50] VITALS: PULSE 75; RESP 20; O2SAT 92
[2023-04-19] VITALS (8 sets, daily range): BP systolic 140–170; BP diastolic 62–81; PULSE 73–87; RESP 16–22; TEMP 37.4; O2SAT 92–99
[2023-04-19] MEDS: ACETAMINOPHEN 500 MG TABLET 1000 MG PO (00:45)
[2023-04-19 00:48] LABS: INR 1.1; Partial Thromboplastin Time 35.5 SECONDS (22.3-36.8); Prothrombin Time 14.3 Seconds (11.1-14.7)
[2023-04-19 00:50] LABS: Alanine Aminotransferase 26 U/L (6-35); Albumin Level 4.2 g/dL (3.5-5.1); Alkaline Phosphatase 61 U/L (38-126); Anion Gap 10 mmol/L (8-16); Aspartate Amino Transferase 43 U/L (14-36); Bilirubin,Total 0.6 mg/dL (0.2-1.3); Blood Urea Nitrogen 12 mg/dL (7-17); CRP 2.5 mg/dL (<1.0); Calcium 8.9 mg/dL (8.4-10.2); Carbon Dioxide 26 mmol/L (22-30); Chloride 99 mmol/L (98-107); Estimated Glomerular Filt Rate > 60; Glucose 105 mg/dL (65-110); Potassium 3.6 mmol/L (3.4-5.0); Sodium 135 mmol/L (137-145)
[2023-04-19 00:58] LABS: Basophils Absolute Auto 0.1 K/mm3 (0.0-0.1); Basophils Percent Auto 0.5 % (0.2-1.2); Eosinophils Percent Auto 0.2 % (0-4.4); Hematocrit 38.3 % (37.0-47.0); Hemoglobin 11.9 g/dL (12.0-15.0); Immature Granulocyte Absolute 0.02 K/mm3 (0.00-0.031); Immature Granulocyte Percent A 0.2 % (0-0.5); Lymphocytes Absolute Auto 1.35 K/mm3 (0.9-3.2); Lymphocytes Percent Auto 14.8 % (18.3-44.2); Mean Corpuscular HGB Conc 31.1 g/dl (32-36); Mean Corpuscular Hemoglobin 26.9 pg (26-34); Mean Corpuscular Volume 86.5 fl (80-100); Mean Platelet Volume 9.4 fl (7.4-10.4); Monocytes Absolute Auto 0.9 K/mm3 (0.1-0.6); Monocytes Percent Auto 10.2 % (2.6-8.5); Neutrophils Absolute Auto 6.7 K/mm3 (1.3-6.7); Neutrophils Percent Auto 74.1 % (45.5-73.1); Platelet Count Result 207 k/mm3 (150-375); Red Blood Count 4.43 M/mm3 (4.2-5.4); Red Cell Distribution Width 13.3 % (11.5-14.5); White Blood Count 9.1 K/mm3 (4.5-10.0)
[2023-04-19 01:12] LABS: Influenza A QL RT-PCR Positive (Negative); Influenza B QL RT-PCR Negative (Negative); RSV RNA, RT-PCR Negative (Negative); SARS-CoV-2 RNA PCR Negative (Negative)
[2023-04-19 01:51] LABS: Appearance Urine Clear (Clear); Bacteria Urine Rare /hpf; Bilirubin Urine Negative (Negative); Blood Urine Trace (Negative); Color Urine Yellow (Yellow); Glucose Urine UA Negative (Negative); Ketones Urine 3+ mg/dL (Negative); Leukocyte Esterase Ur 2+ LEU/UL (Negative); Nitrate Urine Negative (Negative); Non Pathogenic Casts 0-2; Protein Urine 1+ mg/dL (Negative); Specific Grav Ur 1.019 (1.001-1.035); Squamous Epithelial Cell Urine Occasional /hpf (Few); Urobilinogen Urine 0.2 mg/dL (<2.0)
--- NOTE | 2023-04-19 02:11 | ECG_ITS ---
Measurements Intervals [place] Rate: 67 P: 25 [place]: 154 QRS: 29 QRSD: 96 T: 13 QT: 413 QTc: 437 Interpretive Statements SINUS RHYTHM VOLTAGE CRITERIA FOR LVH BORDERLINE ST-T WAVE ABNORMALITY- INFERIOR LEADS BORDERLINE ECG COMPARED TO ECG 07/25/2022 15:58:56 NO SIGNIFICANT CHANGES Electronically Signed On 04-19-2023 8:18:53 OYSTER PREPARER by Khai Wolff D.O.
--- NOTE | 2023-04-19 02:14 | ED.FEVER ---
HPI - Fever General Chief Complaint: Fever <ANDREINA Patrick Last Filed: 04/26/23 09:36> Stated Complaint: nausea/fever <ANDREINA Patrick Last Filed: 04/26/23 09:36> Time Seen by Provider: 04/19/23 00:24 <ANDREINA Patrick Last Filed: 04/26/23 09:36> History of Present Illness HPI Narrative: 82-year-old female with a history of hyperlipidemia, hypertension, KEILA reports for evaluation for fever at home and cough that started the morning of 04/18/2023. Patient is reporting associated mild dyspnea and headaches. She states her fever at home was 102 which prompted her to come to the ED. Upon arrival, she was afebrile at 98.1 degrees. She did not take any Antipyretics prior to arrival. She denies chest pain, otalgia, sore throat, abdominal pain, nausea, vomiting, diarrhea. She lives at home with her daughter who is present at bedside. <ANDREINA Patrick Last Filed: 04/26/23 09:36> Related Data Home Medications: Home Medications Medication Instructions Recorded Confirmed fluoxetine 10 mg tablet 10 mg PO DAILY 07/25/22 03/04/23 Vitamin C 1 tab-cap DAILY 02/26/23 03/04/23 acetaminophen 500 mg tablet 1,000 mg PO Q6H PRN Pain 02/26/23 03/04/23 calcium carbonate 600 mg-vitamin 1 tablet PO DAILY 02/26/23 03/04/23 D3 5 mcg (200 unit) tablet cholecalciferol (vitamin D3) 1 tab-cap DAILY 02/26/23 03/04/23 multivitamin 1 tablet DAILY 02/26/23 03/04/23 <ANDREINA Patrick Last Filed: 04/26/23 09:36> Allergies/Adverse Reactions: Allergies Allergy/AdvReac Type Severity Reaction Status Date / Time No Known Allergies Allergy Verified 04/23/23 13:05 <ANDREINA Patrick Last Filed: 04/26/23 09:36> Review of Systems Review of Systems: CONSTITUTIONAL: Denies fever, chills, or sweats. EYES: Denies visual changes, redness, or discharge. ENT: Denies rhinorrhea, congestion, sore throat, or otalgia. CARDIOVASCULAR: Denies chest pain, palpitations, or edema. RESPIRATORY: See HPI GASTROINTESTINAL: Denies abdominal pain, nausea, vomiting, or diarrhea. GENITOURINARY: Denies dysuria or hematuria. SKIN: Denies rash or itching. MUSCULOSKELETAL: Denies back pain, joint pain, or myalgia. NEUROLOGIC: Denies headache, numbness, or weakness. PSYCHIATRIC: Denies anxiety or depression. <Trice Pizarro PA-C - Last Filed: 04/26/23 09:36> [facility] Past Medical History Medical History: Medical History Acute on chronic anemia gi bleed/ 4.2022 EGD showing erosive gastritis with ulcerative changes Acute respiratory failure COVID-19 Esophageal web Hiatal hernia History of gastroesophageal reflux (GERD) History of right breast cancer (~1989) Internal hemorrhoid Iron deficiency anemia NSAID long-term use Sepsis with acute hypoxic respiratory failure Sleep apnea Spinal stenosis, lumbar region, with neurogenic claudication 2018: L4-L5 moderate to severe spinal stenosis/ severe degenerative disc disease Symptomatic anemia Tricompartment osteoarthritis of right knee Wears eyeglasses <Trice Pizarro PA-C - Last Filed: 04/26/23 09:36> Surgical History Surgical History: Surgical History History of appendectomy History of cataract extraction (~1994) History of colonoscopy (~02/01/14) History of hernia repair History of right mastectomy <Trice Pizarro PA-C - Last Filed: 04/26/23 09:36> Family History Family History: Family History Father Hypertension Family history of elevated blood lipids Family history of cardiovascular disease Mother Hypertension Other Family history of malignant neoplasm of breast <Trice Pizarro PA-C - Last Filed: 04/26/23 09:36> Social History Social History: Social History
[2023-04-19 02:48] LABS: Add Urine Microscopic? YES
[2023-04-19] MEDS: SODIUM CHLORIDE 0.9% IV 1,000 ML 999 ML IV CONT (03:09)
[2023-04-19 03:17] LABS: NT Pro B Type Natriuretic Pept 1830 pg/mL (19.9-100); Troponin I 0.016 ng/mL (0.000-0.034)
--- NOTE | 2023-04-19 08:00 | PC.NURSE ---
Pt and daughter updated that Dr Li will be in to update pt on CT scan and discharge pt. Daughter was asking the CT result explained the EDP would be in to go over results.
== END 2023-04-19 08:48 | disposition home or self-care (01) ==
PROVIDERS: Physician Assistant; Student in an Organized Health Care Education/Training Program; Emergency Provider Emergency Medicine; PCP Family Medicine
DX: J11.1 Influenza due to unidentified influenza virus with other respiratory manifestations (principal); I10 Essential (primary) hypertension; E78.5 Hyperlipidemia, unspecified; K21.9 Gastro-esophageal reflux disease without esophagitis; K44.9 Diaphragmatic hernia without obstruction or gangrene; D50.9 Iron deficiency anemia, unspecified; G47.33 Obstructive sleep apnea (adult) (pediatric); M17.11 Unilateral primary osteoarthritis, right knee; Z86.16 Personal history of COVID-19; Z85.3 Personal history of malignant neoplasm of breast; Z87.891 Personal history of nicotine dependence; R06.00 Dyspnea, unspecified
CPT/HCPCS: 36415; 71046; 71260; 80053; 81001; 83605; 83880; 84484; 85025; 85610; 85730; 86140; 87040; 87086; 87088; 87147; 87181; 87186; 87637; 93005; 96360; 99283; A9270; J7030; Q9967

== ENCOUNTER 2023-05-09 08:21 | Outpatient (CLI) | payer MEDICARE, SELFPAY ==
[2023-05-09 12:16] LABS: Basophils Percent Auto 0.6 % (0.2-1.2); Eosinophils Absolute Auto 0.2 K/mm3 (0-0.3); Eosinophils Percent Auto 3.3 % (0-4.4); Hematocrit 38.3 % (37.0-47.0); Hemoglobin 11.6 g/dL (12.0-15.0); Immature Granulocyte Absolute 0.02 K/mm3 (0.00-0.031); Immature Granulocyte Percent A 0.3 % (0-0.5); Lymphocytes Absolute Auto 1.88 K/mm3 (0.9-3.2); Lymphocytes Percent Auto 28.4 % (18.3-44.2); Mean Corpuscular HGB Conc 30.3 g/dl (32-36); Mean Corpuscular Volume 89.3 fl (80-100); Mean Platelet Volume 10.1 fl (7.4-10.4); Monocytes Absolute Auto 0.8 K/mm3 (0.1-0.6); Monocytes Percent Auto 11.5 % (2.6-8.5); Neutrophils Absolute Auto 3.7 K/mm3 (1.3-6.7); Neutrophils Percent Auto 55.9 % (45.5-73.1); Platelet Count Result 274 k/mm3 (150-375); Red Blood Count 4.29 M/mm3 (4.2-5.4); Red Cell Distribution Width 14.4 % (11.5-14.5); White Blood Count 6.6 K/mm3 (4.5-10.0)
[2023-05-09 12:24] LABS: Alanine Aminotransferase 19 U/L (6-35); Alkaline Phosphatase 65 U/L (38-126); Anion Gap 7 mmol/L (8-16); Aspartate Amino Transferase 50 U/L (14-36); Bilirubin,Total 0.6 mg/dL (0.2-1.3); Blood Urea Nitrogen 16 mg/dL (7-17); Calcium 9.2 mg/dL (8.4-10.2); Carbon Dioxide 28 mmol/L (22-30); Chloride 108 mmol/L (98-107); Cholesterol 144 mg/dL (0-200); Estimated Glomerular Filt Rate > 60; Glucose 86 mg/dL (65-110); HDL Direct 42 mg/dL; Potassium 3.7 mmol/L (3.4-5.0); Sodium 143 mmol/L (137-145); Triglycerides 165 mg/dL (<150)
[2023-05-09 12:36] LABS: LDL Cholesterol Direct 71 mg/dL
== END 2023-05-09 08:22 | disposition home or self-care (01) ==
PROVIDERS: PCP Family Medicine; Visit Provider Physician Assistant
DX: D64.9 Anemia, unspecified (principal); E78.2 Mixed hyperlipidemia; I10 Essential (primary) hypertension; M85.80 Other specified disorders of bone density and structure, unspecified site; R73.03 Prediabetes; Z79.899 Other long term (current) drug therapy
CPT/HCPCS: 36415; 80053; 80061; 82728; 83036; 84443; 85025

== ENCOUNTER 2023-07-22 14:22 | Emergency (ER) | payer MEDICARE, SELFPAY ==
--- NOTE | ~2023-07-22 | CT_ITS ---
EXAMINATION: CT brain wo con DATE: 07/22/2023 15:45 INDICATION: Headache post fall with head injury TECHNIQUE: Computed tomography (CT) of the head was performed without intravenous contrast. Sagittal and coronal reconstructions were performed. The mA was adjusted according to patient size. Iterative reconstruction technique was employed. The dose-length product was 605.33 mGy-cm. COMPARISON: head CT dated 09/18/2022 FINDINGS: No fracture. No acute intracranial hemorrhage, acute infarction or abnormal extra axial fluid collect ion. There is mild scattered white matter hypoattenuation consistent with chronic small vessel ischem ic disease. Symmetric prominence of the sulci consistent with mild age-appropriate diffuse cerebral v olume loss. Ventricles are normal and symmetric. No mass/mass effect. Changes of bilateral intraocula r lens replacement. The orbits and mastoid air cells are normal. Mild mucosal thickening versus small amount of mucus in the dependent left sphenoid sinus. IMPRESSION: 1. No fracture or acute intracranial process. 2. Age-related changes including mild diffuse volume loss and mild scattered white matter hypoattenua tion consistent with chronic small vessel ischemic disease. Reviewed, dictated and finalized at location A. IMPRESSION: 1. No fracture or acute intracranial process. 2. Age-related changes including mild diffuse volume loss and mild scattered wh ite matter hypoattenuation consistent with chronic small vessel ischemic diseas e.
--- NOTE | ~2023-07-22 | XR_ITS ---
XR hip BI 2V w AP pelvis 07/22/2023 15:44 Indication: Status post fall. Hip pain. Procedure: AP pelvis and 2 views each hip Comparison: No prior studies for comparison. Findings: Pelvic rings are intact.Mild joint space narrowing bilaterally of the hips. There is lower lumbar spondylosis. No acute fracture or traumatic malalignment. No focal soft tissue abnormality. No foreign bodies. Impression: 1: No acute bone or joint abnormality. Reviewed, dictated and finalized at location B. Impression: 1: No acute bone or joint abnormality.
--- NOTE | ~2023-07-22 | CT_ITS ---
EXAMINATION: CT cervical spine wo con DATE: 07/22/2023 15:45 INDICATION: fall TECHNIQUE: Computed tomography (CT) of the cervical spine was performed without intravenous contrast. Automated exposure control and iterative reconstruction technique were employed. The dose-length pro duct was 478.74 mGy-cm. COMPARISON: None. FINDINGS: Vertebral Body Alignment: Intact. Reversed lordosis centered at C5. Grade 1 listheses at C2-3, C3-4, C4-5, and C7-T1, presumably on a degenerative basis. Craniocervical and atlantoaxial alignment: Moderate degenerative change. Alignment intact. Osseous structures/fracture: No suspicious lytic or blastic process in the visualized spine. No evid ence of acute fracture. Pulsation erosion in C5 from a left vertebral artery tortuosity. Cervical soft tissues: The paraspinal soft tissues planes are maintained. Patchy groundglass opacitie s in the upper lungs. Biapical pleural scarring. Degenerative changes: Multilevel severe degenerative disc disease and facet arthropathy. Multilevel s evere left neural foraminal narrowing at C4-5, C5-6, and C6-7. No severe central canal narrowing. IMPRESSION: No acute fracture or traumatic malalignment in the cervical spine. Reviewed, dictated and finalized at location K.
--- NOTE | ~2023-07-22 | XR_ITS ---
XR chest 1V 07/22/2023 15:44 Indication: Status post fall. Chest pain. Procedure: AP view of the chest Comparison: No prior studies for comparison. Findings: Heart size normal. No focal air space disease, pulmonary edema, pleural effusion or suspect ed pneumothorax. There are calcified granulomas of the left mid thorax. There is a hiatal hernia. The re are surgical changes overlying the right lower thorax. Impression: 1: No acute cardiopulmonary disease. Reviewed, dictated and finalized at location B. Impression: 1: No acute cardiopulmonary disease.
[2023-07-22 14:21] VITALS: BP 209/94; PULSE 64; RESP 16; TEMP 36.5; O2SAT 97
[2023-07-22] MEDS: ACETAMINOPHEN 500 MG TABLET 1000 MG PO (15:06)
--- NOTE | 2023-07-22 15:46 | ED.GENADULT ---
HPI - General Adult General Chief complaint: Fall Stated complaint: FALL Time Seen by Provider: 07/22/23 14:48 History of Present Illness HPI narrative: Spring Pelletier is an 82 y/o female who presents today from home after having a mechanical ground level fall. She states that her shoe got stuck on the floor and she fell down sticking the back of her head. Denies any LOC, there was a home health nurse there with her and she cared for her and called for EMS to come. She denies any neck /back pain / no abdominal pain/ no hip/pelvic pain no lower or upper extremity pain She denie she is on any blood thinners. Related Data Home Medications Medication Instructions Recorded Confirmed Vitamin C 1 tab-cap DAILY 02/26/23 06/19/23 acetaminophen 500 mg tablet 1,000 mg PO Q6H PRN Pain 02/26/23 06/19/23 calcium carbonate 600 mg-vitamin 1 tablet PO DAILY 02/26/23 06/19/23 D3 5 mcg (200 unit) tablet cholecalciferol (vitamin D3) 1 tab-cap DAILY 02/26/23 06/19/23 multivitamin 1 tablet DAILY 02/26/23 06/19/23 ferrous sulfate 325 mg (65 mg 325 mg PO DAILY 05/13/23 06/19/23 iron) tablet Allergies Allergy/AdvReac Type Severity Reaction Status Date / Time No Known Allergies Allergy Verified 07/22/23 14:32 Review of Systems Review of Systems: CONSTITUTIONAL: Denies fever, chills, or sweats. EYES: Denies visual changes, redness, or discharge. ENT: Denies rhinorrhea, congestion, sore throat, or otalgia. CARDIOVASCULAR: Denies chest pain, palpitations, or edema. RESPIRATORY: Denies cough or dyspnea. GASTROINTESTINAL: Denies abdominal pain, nausea, vomiting, or diarrhea. GENITOURINARY: Denies dysuria or hematuria. SKIN: Denies rash or itching. MUSCULOSKELETAL: Denies back pain, joint pain, or myalgia. NEUROLOGIC: Reports headache, no numbness, dizziness, or weakness. PSYCHIATRIC: Denies anxiety or depression. [facility] Past Medical History Medical History Acute on chronic anemia gi bleed/ EGD showing erosive gastritis with ulcerative changes Acute respiratory failure COVID-19 Esophageal web Hiatal hernia History of gastroesophageal reflux (GERD) History of right breast cancer (~1989) Internal hemorrhoid Iron deficiency anemia NSAID long-term use Sepsis with acute hypoxic respiratory failure Sleep apnea Spinal stenosis, lumbar region, with neurogenic claudication 2018: L4-L5 moderate to severe spinal stenosis/ severe degenerative disc disease Symptomatic anemia Tricompartment osteoarthritis of right knee Wears eyeglasses Surgical History Surgical History History of appendectomy History of cataract extraction (~1994) History of colonoscopy (~02/01/14) History of hernia repair History of right mastectomy Family History Family History Father Hypertension Family history of elevated blood lipids Family history of cardiovascular disease Mother Hypertension Other Family history of malignant neoplasm of breast Social History Social History Smoking packs per day: 1 Smoking cigarettes per day: 20.0 Years smoked: 30 Smoking pack-years: 30.00 Smoking status: Former smoker Tobacco type: cigarettes Second hand tobacco smoke exposure: No Smoking end date: 03/30/86 Alcohol intake: current Drinks per week: 6 Substance use: never Substance use type: does not use Lack of Transportation: No Lack of Food: Never True Current Housing: I Have Housing Concerned About Future Housing: No Difficulty Paying Gas/Electric Bills: No Difficulty Paying for Meds: No Currently Unemployed: No Education: High School Diploma/GED Difficulty w/ Childcare or Family Care: YES Living arrangements: with family Additional living arrangements comments: PT LIVES WITH SPOUSE Occupation
[2023-07-22 16:06] VITALS: BP 212/70; PULSE 63; RESP 16; O2SAT 98
== END 2023-07-22 20:24 | disposition home or self-care (01) ==
LOC: ANHED 17:19
PROVIDERS: Emergency Provider Nurse Practitioner Family; PCP Family Medicine
DX: S00.93XA Contusion of unspecified part of head, initial encounter (principal); G44.311 Acute post-traumatic headache, intractable; D64.9 Anemia, unspecified; K21.9 Gastro-esophageal reflux disease without esophagitis; Z85.3 Personal history of malignant neoplasm of breast; G47.30 Sleep apnea, unspecified; W01.0XXA Fall on same level from slipping, tripping and stumbling without subsequent striking against object, initial encounter
CPT/HCPCS: 70450; 71045; 72125; 73521; 99284; A9270

== ENCOUNTER 2023-07-30 08:24 | Outpatient (CLI) | payer MEDICARE, SELFPAY ==
[2023-07-30 19:18] LABS: Basophils Percent Auto 0.6 % (0.2-1.2); Eosinophils Absolute Auto 0.2 K/mm3 (0-0.3); Eosinophils Percent Auto 3.5 % (0-4.4); Hematocrit 39.6 % (37.0-47.0); Hemoglobin 12.2 g/dL (12.0-15.0); Immature Granulocyte Absolute 0.01 K/mm3 (0.00-0.031); Immature Granulocyte Percent A 0.2 % (0-0.5); Lymphocytes Absolute Auto 1.82 K/mm3 (0.9-3.2); Lymphocytes Percent Auto 29.4 % (18.3-44.2); Mean Corpuscular HGB Conc 30.8 g/dl (32-36); Mean Corpuscular Hemoglobin 27.4 pg (26-34); Mean Corpuscular Volume 88.8 fl (80-100); Mean Platelet Volume 9.8 fl (7.4-10.4); Monocytes Absolute Auto 0.6 K/mm3 (0.1-0.6); Monocytes Percent Auto 10.2 % (2.6-8.5); Neutrophils Absolute Auto 3.5 K/mm3 (1.3-6.7); Neutrophils Percent Auto 56.1 % (45.5-73.1); Platelet Count Result 243 k/mm3 (150-375); Red Blood Count 4.46 M/mm3 (4.2-5.4); White Blood Count 6.2 K/mm3 (4.5-10.0)
[2023-07-30 19:56] LABS: Alanine Aminotransferase 28 U/L (6-35); Albumin Level 4.2 g/dL (3.5-5.1); Alkaline Phosphatase 65 U/L (38-126); Anion Gap 5 mmol/L (4-12); Aspartate Amino Transferase 36 U/L (14-36); Bilirubin,Total 0.5 mg/dL (0.2-1.3); Blood Urea Nitrogen 22 mg/dL (7-17); Calcium 9.3 mg/dL (8.4-10.2); Carbon Dioxide 28 mmol/L (22-30); Chloride 107 mmol/L (98-107); Estimated Glomerular Filt Rate > 60; Glucose 90 mg/dL (65-110); Sodium 140 mmol/L (137-145)
== END 2023-07-30 08:25 | disposition home or self-care (01) ==
PROVIDERS: PCP Family Medicine; Visit Provider Physician Assistant
DX: R74.8 Abnormal levels of other serum enzymes (principal); I10 Essential (primary) hypertension; E66.01 Morbid (severe) obesity due to excess calories; Z68.38 Body mass index [BMI] 38.0-38.9, adult
CPT/HCPCS: 36415; 80053; 85025

== ENCOUNTER 2023-10-27 14:26 | Outpatient (CLI) | payer MEDICARE, SELFPAY ==
--- NOTE | ~2023-10-27 | MM_ITS ---
EXAMINATION: MM screening melissa LT w sophia HISTORY: Screening TECHNIQUE: Craniocaudal and mediolateral oblique 3-D tomosynthesis images were obtained and synthetic 2-D images were generated. CAD analysis was submitted and interpreted. COMPARISON: Comparison to multiple prior studies sequentially, with oldest reviewed study dated 02/28. BREAST PARENCHYMAL COMPOSITION: Not dense: There are scattered areas of fibroglandular density. FINDINGS: There is no evidence of suspicious mass, calcification, or architectural distortion to sugg est malignancy in either breast. There has been no suspicious interval change. IMPRESSION: 1. No mammographic evidence of malignancy. 2. Recommend routine screening mammography in one year. BI-RADS Category 1: Negative Reviewed, dictated and finalized at location B.
== END 2023-10-27 14:27 | disposition home or self-care (01) ==
LOC: ANHIMG 14:27
PROVIDERS: PCP Family Medicine; Visit Provider Family Medicine
DX: Z12.31 Encounter for screening mammogram for malignant neoplasm of breast (principal)
CPT/HCPCS: 77063; 77067

== ENCOUNTER 2024-01-30 07:57 | Outpatient (CLI) | payer MEDICARE, SELFPAY ==
[2024-01-30 14:22] LABS: Basophils Absolute Auto 0.1 K/mm3 (0.0-0.1); Basophils Percent Auto 0.7 % (0.2-1.2); Eosinophils Absolute Auto 0.3 K/mm3 (0-0.3); Eosinophils Percent Auto 3.7 % (0-4.4); Hematocrit 40.7 % (37.0-47.0); Hemoglobin 12.8 g/dL (12.0-15.0); Immature Granulocyte Absolute 0.01 K/mm3 (0.00-0.031); Immature Granulocyte Percent A 0.1 % (0-0.5); Lymphocytes Percent Auto 32.5 % (18.3-44.2); Mean Corpuscular HGB Conc 31.4 g/dl (32-36); Mean Corpuscular Hemoglobin 28.3 pg (26-34); Mean Corpuscular Volume 89.8 fl (80-100); Mean Platelet Volume 9.6 fl (7.4-10.4); Monocytes Absolute Auto 0.8 K/mm3 (0.1-0.6); Neutrophils Absolute Auto 3.4 K/mm3 (1.3-6.7); Platelet Count Result 227 k/mm3 (150-375); Red Blood Count 4.53 M/mm3 (4.2-5.4); Red Cell Distribution Width 14.8 % (11.5-14.5); White Blood Count 6.8 K/mm3 (4.5-10.0)
[2024-01-30 14:57] LABS: Alanine Aminotransferase 28 U/L (6-35); Albumin Level 4.2 g/dL (3.5-5.1); Alkaline Phosphatase 66 U/L (38-126); Anion Gap 8 mmol/L (4-12); Aspartate Amino Transferase 52 U/L (14-36); Bilirubin,Total 0.6 mg/dL (0.2-1.3); Blood Urea Nitrogen 16 mg/dL (7-17); Calcium 9.2 mg/dL (8.4-10.2); Carbon Dioxide 30 mmol/L (22-30); Chloride 102 mmol/L (98-107); Estimated Glomerular Filt Rate > 60; Glucose 82 mg/dL (65-110); Potassium 4.1 mmol/L (3.4-5.0); Sodium 140 mmol/L (137-145)
== END 2024-01-30 07:58 | disposition home or self-care (01) ==
LOC: ANHGOSHLAB 07:59
PROVIDERS: PCP Family Medicine; Visit Provider Student in an Organized Health Care Education/Training Program
DX: D64.9 Anemia, unspecified (principal); I10 Essential (primary) hypertension; R74.8 Abnormal levels of other serum enzymes; R73.03 Prediabetes
CPT/HCPCS: 36415; 80053; 83036; 85025

== ENCOUNTER 2024-04-05 11:24 | Emergency (ER) | payer MEDICARE, SELFPAY ==
--- NOTE | ~2024-04-05 | XR_ITS ---
XR chest 2V Ordering provider: Genet Trejo PA-C History: 83 years Female with . cough, SOB . Comparison: July 22, 2023 FINDINGS: MEDIASTINUM: The cardiac silhouette is not enlarged. Sliding hiatus hernia. LUNGS: No infiltrates, effusions or pneumothorax. Left midzone nodule which is unchanged. OTHER: No free air under the diaphragm. Degenerative changes of the spine. IMPRESSION: No acute cardiopulmonary pathology. Reviewed, dictated and finalized at location A. NICAL MARKETING ENGINEER
[2024-04-05 11:43] VITALS: BP 136/60; PULSE 75; RESP 16; TEMP 36.8; O2SAT 96
--- NOTE | 2024-04-05 11:49 | ED_ITS ---
HPI - URI/Sore Throat General Chief Complaint: Upper Respiratory Infection <Genet Trejo PA-C - Last Filed: 04/05/24 16:58> Stated Complaint: weak <Genet Trejo PA-C - Last Filed: 04/05/24 16:58> Time Seen by Provider: 04/05/24 11:49 <Genet Trejo PA-C - Last Filed: 04/05/24 16:58> Focused HPI: This is a 83 year old female that presents to the ER for cold symptoms present since yesterday. Reports cough, congestion, rhinorrhea, generalized weakness. GENERAL: Elderly, well-nourished, and in no acute distress. HEAD: Normocephalic, atraumatic. CHEST: Clear to auscultation. ?No respiratory distress. HEART: Regular rate and rhythm.? NEURO: ?Alert and oriented x3. Patient screened in triage and initial orders placed.? ?Additional care and disposition to be based upon?diagnostic testing and treatment. <Genet Trejo PA-C - Last Filed: 04/05/24 16:58> History of Present Illness HPI Narrative: Agree with the HPI above <Darryl Blair MD - Last Filed: 04/05/24 15:51> Related Data Home Medications: Home Medications ?Medication ?Instructions ?Recorded ?Confirmed ?Last Taken ?Type Vitamin C 1 tab-cap DAILY 02/26/23 02/03/24 02/28/23 History acetaminophen 500 mg tablet 1,000 mg PO Q6H PRN Pain 02/26/23 02/03/24 03/03/23 History calcium 600 mg (as 1 tablet PO DAILY 02/26/23 02/03/24 02/28/23 History carbonate)-vitamin D3 5 mcg (200 unit) tablet cholecalciferol (vitamin D3) 1 tab-cap DAILY 02/26/23 02/03/24 02/28/23 History multivitamin 1 tablet DAILY 02/26/23 02/03/24 02/28/23 History ferrous sulfate 325 mg (65 mg 325 mg PO DAILY 05/13/23 02/03/24 Unknown History iron) tablet <Genet Trejo PA-C - Last Filed: 04/05/24 16:58> Allergies/Adverse Reactions: Allergies Allergy/AdvReac Type Severity Reaction Status Date / Time No Known Allergies Allergy Verified 02/19/24 10:43 <Genet Trejo PA-C - Last Filed: 04/05/24 16:58> Review of Systems Review of Systems: All systems reviewed & are unremarkable except as noted in HPI and below <Genet Trejo PA-C - Last Filed: 04/05/24 16:58> ON LICENSE OF [facility] Past Medical History Medical History: Medical History Influenza A NSAID long-term use Acute respiratory failure Acute on chronic anemia gi bleed/ 4.2022 EGD showing erosive gastritis with ulcerative changes Sepsis with acute hypoxic respiratory failure Symptomatic anemia COVID-19 Tricompartment osteoarthritis of right knee Spinal stenosis, lumbar region, with neurogenic claudication 2018: L4-L5 moderate to severe spinal stenosis/ severe degenerative disc disease History of right breast cancer (~1989) Wears eyeglasses Sleep apnea Hiatal hernia Internal hemorrhoid Iron deficiency anemia History of gastroesophageal reflux (GERD) Esophageal web <Genet Trejo PA-C - Last Filed: 04/05/24 16:58> Surgical History Surgical History: Surgical History History of hernia repair History of right mastectomy History of appendectomy History of cataract extraction (~1994) History of colonoscopy (~02/01/14) <Genet Trejo PA-C - Last Filed: 04/05/24 16:58> Family History Family History: Family History Father Hypertension Family history of elevated blood lipids Family history of cardiovascular disease Mother Hypertension Other Family history of malignant neoplasm of breast <Genet Trejo PA-C - Last Filed: 04/05/24 16:58> Social History Social History: Social History Smoking packs per day: 1 Smoking cigarettes per day: 20.0 Years smoked: 30 Smoking pack-years: 30.00 Smoking status: Former smoker Tobacco type: cigarettes Second hand tobacco smoke exposure: No Smoking end date: 03/30/86 Alcohol intake: current Drinks per week: 6 Substance use: never Substance use type: does not use Do You Feel Safe in your Home?: Yes Lack of Transportation: No Lack of Food: Never True Current Housing: I Have Housing Concerned About Future Housing: No Difficulty Paying Gas/Electric Bills: No Difficulty Paying for Meds: No Currently Unemployed: No Education: High School Diploma/GED Difficulty w/ Childcare or Family Care: No Living arrangements: with family Additional living arrangements comments: PT LIVES WITH SPOUSE Occupation/Education: retired Gender identity (if verbalized by the patient): Female Spiritual care concerns: No Agree to blood products: Yes <Genet Trejo PA-C - Last Filed: 04/05/24 16:58> Exam Narrative: GENERAL: [Well-appearing, well-nourished, and in no acute distress.] HEAD: [Normocephalic, atraumatic.] EYES: [PERRLA and EOMI.] ENT: Nares clear, no rhinorrhea or epistaxis. Mucous membranes moist. NECK: Supple. CHEST: [Clear to auscultation. No respiratory distress.] HEART: [Regular rate and rhythm]. No murmur heard. [Normal peripheral pulses.] ABDOMEN: [Soft, nondistended], [nontender], [No rigidity or guarding] EXTREMITIES: Normal range of motion. [No edema.] SKIN: Warm, dry, no rash. NEURO: [No focal deficits]. Alert and oriented [x3.] PSYCH: [Normal mood and affect.] <Darryl Blair MD - Last Filed: 04/05/24 15:51> Course Vital Signs Vital signs: Vital Signs Temperature 98.2 F 04/05/24 11:43 Pulse Rate 75 04/05/24 11:43 Respiratory Rate 16 04/05/24 11:43 Blood Pressure 136/60 04/05/24 11:43 Pulse Oximetry 96 04/05/24 11:43 Oxygen Delivery Room Air 04/05/24 11:43 Temperature 98.2 F 04/05/24 11:43 Pulse Rate 75 04/05/24 11:43 Respiratory Rate 16 04/05/24 11:43 Blood Pressure 136/60 04/05/24 11:43 Pulse Oximetry 96 04/05/24 11:43 Oxygen Delivery Room Air 04/05/24 11:43 <Genet Trejo PA-C - Last Filed: 04/05/24 16:58> Vital Signs Temperature 98.2 F 04/05/24 11:43 Pulse Rate 75 04/05/24 11:43 Respiratory Rate 16 04/05/24 11:43 Blood Pressure 136/60 04/05/24 11:43 Pulse Oximetry 96 04/05/24 11:43 Oxygen Delivery Room Air 04/05/24 11:43 Temperature 98.2 F 04/05/24 11:43 Pulse Rate 75 04/05/24 11:43 Respiratory Rate 16 04/05/24 11:43 Blood Pressure 136/60 04/05/24 11:43 Pulse Oximetry 96 04/05/24 11:43 Oxygen Delivery Room Air 04/05/24 11:43 <Darryl Blair MD - Last Filed: 04/05/24 15:51> MDM - URI/Sore Throat MDM Narrative Medical decision making narrative: 83-year-old otherwise healthy appearing female presenting to the emergency department for COVID exposure and upper respiratory infection symptoms. She endorses a mildly productive cough, congestion for last several days and positive, contacts. She was recently at a with multiple COVID positive close family members. Patient is not hypoxic, not tachypneic, tachycardic or having any hemodynamic instability. She has clear breath sounds throughout. Does cough infrequently during the examination. She did test positive for COVID but has no evidence of pneumonia or chest x-ray. She is safe and stable for discharge home with symptomatic controlling medications and recommendations such as Tylenol, ibuprofen, rhqf-bhp-irzwzkb cough suppressants. Patient and family comfort with this plan and will follow-up with her PCP outpatient. She was given return precautions and safely discharged at this time. <Darryl Blair MD - Last Filed: 04/05/24 15:51> Differential Diagnosis Differential diagnosis: Likely upper respiratory infection, viral infection, bronchitis, influenza, pharyngitis and other <Daryrl Blair MD - Last Filed: 04/05/24 15:51> Medical Records Attestation: I reviewed the patient's medical records. <Darryl Blair MD - Last Filed: 04/05/24 15:51> Lab Data Attestation: I reviewed the patient's lab results. <Darryl Blair MD - Last Filed: 04/05/24 15:51> Labs: Lab Results 04/05/24 Range/Units 11:46 Influenza A (RT-PCR) Negative (Negative) Influenza B (RT-PCR) Negative (Negative) RSV (RT-PCR) Negative (Negative) SARS-CoV-2 RNA (RT-PCR) Positive A (Negative) <Genet Trejo PA-C - Last Filed: 04/05/24 16:58> Lab Results 04/05/24 Range/Units 11:46 Influenza A (RT-PCR) Negative (Negative) Influenza B (RT-PCR) Negative (Negative) RSV (RT-PCR) Negative (Negative) SARS-CoV-2 RNA (RT-PCR) Positive A (Negative) <Daryrl Blair MD - Last Filed: 04/05/24 15:51> Imaging Data Attestation: I personally reviewed and interpreted this imaging study as follows: <Darryl Blair MD - Last Filed: 04/05/24 15:51> My impression: Impressions Chest X-Ray 04/05/24 12:58 IMPRESSION: No acute cardiopulmonary pathology. <Darryl Blair MD - Last Filed: 04/05/24 15:51> Critical Care Time Critical Care Time Critical Care Time: No <Genet Trejo PA-C - Last Filed: 04/05/24 16:58> Discharge Plan Discharge Clinical Impression: COVID-19 URI (upper respiratory infection) Qualifiers: URI type: unspecified URI Qualified Code(s): J06.9 - Acute upper respiratory infection, unspecified <Genet Trejo PA-C - Last Filed: 04/05/24 16:58> Patient Disposition: Home, Self-Care <ANDREINA Price Last Filed: 04/05/24 16:58> Condition: Stable <Genet Trejo PA-C - Last Filed: 04/05/24 16:58> Instructions: Antibiotic Form, Upper Respiratory Infection (DC), Viral Syndrome (ED), COVID-19 (Coronavirus Disease 2019) (ED) <Genet Trejo PA-C - Last Filed: 04/05/24 16:58> Additional Instructions: He did test positive for COVID 19, do not have any kind of pneumonia. Your symptoms will be controlled with keva-gsy-xzygbnh medications and I recommend you alternate Tylenol and ibuprofen to have some coverage every 3-4 hours. For example you can take Tylenol at noon, ibuprofen at 3:00 p.m., Tylenol at 6:00 p.m., ibuprofen and 9:00 p.m., etc. any vqdc-oxr-vuvwtnq remedies for your symptoms are also acceptable. Follow-up with regular doctor on outpatient basis. Return with any new or worsening concerns at any time. <Genet Trejo PA-C - Last Filed: 04/05/24 16:58> Patient Language: Icelandic <Genet Trejo PA-C - Last Filed: 04/05/24 16:58> Prescriptions: No Action triamcinolone acetonide 0.1 % cream 1 applic topical BID Qty: 80 0RF (DME) CPAP See Rx Instructions .Route .MEDSUPPLY Qty: 1 0RF Rx Instructions: Test: 2.26.16 cpap 11cm water with heated humidifier. small respironics wisp nasal mask ferrous sulfate 325 mg (65 mg iron) tablet 325 mg PO DAILY multivitamin Tablet 1 tablet DAILY calcium carbonate-vitamin D3 600 mg-5 mcg (200 unit) Tablet 1 tablet PO DAILY Vitamin C 1 tab-cap DAILY cholecalciferol (vitamin D3) 1 tab-cap DAILY acetaminophen 500 mg Tablet 1,000 mg PO Q6H PRN (Reason: Pain) enalapril maleate 10 mg tablet 10 mg PO BID Qty: 180 1RF furosemide 20 mg tablet 20 mg PO DAILY Qty: 90 3RF amlodipine 5 mg tablet 5 mg PO DAILY Qty: 90 1RF gabapentin 300 mg capsule 300 mg PO HS Qty: 90 1RF ezetimibe 10 mg tablet 10 mg PO DAILY Qty: 90 1RF fluoxetine 10 mg tablet 10 mg PO DAILY Qty: 90 1RF simvastatin 20 mg tablet 20 mg PO DAILY Qty: 90 1RF metoprolol succinate 25 mg tablet extended release 24 hr 50 mg PO BID Qty: 120 5RF <Genet Trejo PA-C - Last Filed: 04/05/24 16:58> Follow-up/Referrals: Carlotta Mireles MD [Primary Care Provider] - <Genet Trejo PA-C - Last Filed: 04/05/24 16:58> Time of Disposition: 15:17 <Genet Trejo PA-C - Last Filed: 04/05/24 16:58> 15:17 <Darryl Blair MD - Last Filed: 04/05/24 15:51>
[2024-04-05 12:28] LABS: Influenza A QL RT-PCR Negative (Negative); Influenza B QL RT-PCR Negative (Negative); RSV RNA, RT-PCR Negative (Negative); SARS-CoV-2 RNA PCR Positive (Negative)
[2024-04-05] MEDS: ACETAMINOPHEN 500 MG TABLET 1000 MG PO (16:53)
[2024-04-05 17:05] VITALS: BP 150/68; PULSE 87; RESP 19; O2SAT 98
--- OUTSIDE RECORDS SUMMARY | 2024-04-11 18:49 | XMS_ITS | Clinical Summary ---
Author Organization [facility] Care Team Providers Care Hopper Feeder Name Role Phone Unavailable Primary Care Provider Unavailabl e Social History Tobacco Use Types Packs/Day Years Used Date Smoking Tobacco: Never Assessed Comments Unknown Sex and Gender Information Value Date Recorded Sex Assigned at Not on file Legal Sex Female 1:31 PM RN ORTHO Gender Identity Not on file Sexual Orientation Not on file Plan of Treatment Health Maintenance Due Date Last Done Comments DEXA Bone Density 1940 Hepatitis C Virus (HCV) Screening 1940 TdaP Immunization 1940 Respiratory Syncytial Virus (RSV) Immunization (Adult) (1 - 1-dose 75+ series) 2013 Pneumococcal Immunization (50+ years) (2 of 2 - PCV) 12/09/2018 12/09/2017 Influenza Immunization (#1) 11/30/202311/30, 11/25/2018, 12/02/2017, Additional history exists SARS-COV-2 Immunization ( season) 2023 01/29/2021, 06/16/2020, 05/19/2020 Zoster Immunization Completed 09/22/2018, 9 Hepatitis B Immunization Aged Out No longer eligible based on patient's age to complete this topic Meningococcal Immunization (ACWY) Aged Out No longer eligible based on patient's age to complete this topic Rotavirus Immunization Aged Out No lo nger eligible based on patient's age to complete this topic
--- OUTSIDE RECORDS SUMMARY | 2024-04-11 18:49 | XMS_ITS | Encounter Summary ---
Author Organization [facility] Address [address] [place] [address] Care Team Providers Care Stucco Laborer Name Role Phone Unavailable Primary Care Provider Unavailabl e Encounter Details Date Type Department Care Team (Late st Contact Info) Description 02/07/2021 Lab Requisition [facility] Community Testing [facility] [address] [place] [address] Jorge Chen MD [facility] [place] [address] Social History Tobacco Use Types Packs/Day Years Used Date Smoking Tobacco: Never Assessed Comments Unknown Sex and Gender Information Value Date Recorded Sex Assigned at Not on file Legal Sex Female 1:31 PM BEN DAY ARTIST Gender Identity Not on file Sexual Orientation Not on file documented as of this encounter Plan of Treatment Not on file documented as of this encounter Procedures Procedure Name Priority Date/Time Associated Diagnosis Comments SARS-COV-2 PCR [facility] ONLY Routine 02/07/2021 1:47 PM BEN DAY ARTIST documented in this encounter Visit Diagnoses Not on filedocumented in this encounter
--- OUTSIDE RECORDS SUMMARY | 2024-04-11 18:49 | XMS_ITS | Continuity of Care Document ---
Author Organization [facility] Address [address] [place] [address] [place] [address] Phone Care Team Providers Care Washer Off Name Role Phone Vidhya Peguero Unavailable Unavailable Procedures Procedure Date Office/outpatient Visit, Est Eye Exam & Treatment Eye Exam, New Patient Advance Directives Directive Yes / No Effective Date File Name No Information Encounters Encounter Description Practice Location Reason(s) For Visit Diagnoses Date Provider Providers Copied on Encounter Office/outpat ient Visit, Est [facility], [address] [place] [address] [address], [place], [place], [id number], tel:[phone] [facility] No Information 0 Marielena Kee. [address], [place], [place], [facility], [place]. tel:[phone] [facility], [address] [place] [address] [address], [place], [place], [id number], tel:[phone] [facility] No Information 200 [address] Marielena Mullins [address], [place], [address], [place]. tel:[phone] [facility], [address] [place] [address] [address], [place], [place], [id number], [place] tel:[phone] [facility] No Information 5-200 8 Marielena Kee. [address], [place], [place], [facility], [place]. tel:[phone] Family History Family Member Type Diagnosis Age At Onset No Information Payers Payer name Insurance type Covered libertarian ID Authoriza tion(s) No Information Social History [...]
--- OUTSIDE RECORDS SUMMARY | 2024-04-11 18:49 | XMS_ITS | Encounter Summary ---
Author Organization [facility] Address [address] [place] [address] Care Team Providers Care Technical Operations Manager Name Role Phone Unavailable Primary Care Provider Unavailabl e Encounter Details Date Type Department Care Team (Late st Contact Info) Description 02/07/2021 1:45 PM MODELER Rapid Evaluation [facility] Community Testing [facility] [address] [place], [place] [id number] Social History Tobacco Use Types Packs/Day Years Used Date Smoking Tobacco: Never Assessed Comments Unknown Sex and Gender Information Value Date Recorded Sex Assigned at Not on file Legal Sex Female 1:31 PM MODELER Gender Identity Not on file Sexual Orientation Not on file documented as of this encounter Plan of Treatment Not on file documented as of this encounter Visit Diagnoses Not on filedocumented in this encounter
--- OUTSIDE RECORDS SUMMARY | 2024-04-11 20:24 | XMS_ITS | Encounter Summary ---
Author Organization [facility] Address [address] [place] [address] Care Team Providers Care Crystal Attacher Name Role Phone Unavailable Primary Care Provider Unavailabl e Encounter Details Date Type Department Care Team (Late st Contact Info) Description 02/07/2021 Lab Requisition [facility] Community Testing [facility] [address] [place] [address] Jorge Chen MD [facility] [place] [address] Social History Tobacco Use Types Packs/Day Years Used Date Smoking Tobacco: Never Assessed Comments Unknown Sex and Gender Information Value Date Recorded Sex Assigned at Not on file Legal Sex Female 1:31 PM TRANSPORT AIRCREWMAN Gender Identity Not on file Sexual Orientation Not on file documented as of this encounter Plan of Treatment Not on file documented as of this encounter Procedures Procedure Name Priority Date/Time Associated Diagnosis Comments SARS-COV-2 PCR [facility] ONLY Routine 02/07/2021 1:47 PM TRANSPORT AIRCREWMAN documented in this encounter Visit Diagnoses Not on filedocumented in this encounter
--- OUTSIDE RECORDS SUMMARY | 2024-04-11 20:24 | XMS_ITS | Clinical Summary ---
Author Organization [facility] Care Team Providers Care Internet And E Business Project Manager Name Role Phone Unavailable Primary Care Provider Unavailabl e Social History Tobacco Use Types Packs/Day Years Used Date Smoking Tobacco: Never Assessed Comments Unknown Sex and Gender Information Value Date Recorded Sex Assigned at Not on file Legal Sex Female 1:31 PM DECK SCALER Gender Identity Not on file Sexual Orientation [...]
--- OUTSIDE RECORDS SUMMARY | 2024-04-11 20:24 | XMS_ITS | Continuity of Care Document ---
Author Organization [facility] Address [address] [place] [address] [place] [address] Phone Care Team Providers Care Medical Transport Specialist Name Role Phone Vidhya Peguero Unavailable Unavailable Procedures Procedure Date Office/outpatient Visit, Est Eye Exam & Treatment Eye Exam, New Patient Advance Directives Directive Yes / No Effective Date File Name No Information Encounters Encounter Description Practice Location Reason(s) For Visit Diagnoses Date Provider Providers Copied on Encounter Office/outpat ient Visit, Est Merged with [facility], [address] [place] [address] [address], [place], [place], [id number], tel:[phone] [facility] No Information 0 Marielena Kee. [address], [place], [place], [facility], [place]. tel:[phone] Merged with [facility], [address] [place] [address] [address], [place], [place], [id number], tel:[phone] [facility] No Information 200 9 Marielena Mullins [address], [place], [address], [place]. tel:[phone] Merged with [facility], [address] [place] [address] [address], [place], [place], [id number], [place] tel:[phone] [facility] No Information 5-200 8 Marielena Kee. [address], [place], [place], [facility], [place]. tel:[phone] Family History Family Member Type Diagnosis Age At Onset No Information Payers Payer name Insurance type Covered republican ID Authoriza tion(s) No Information Social History [...]
--- OUTSIDE RECORDS SUMMARY | 2024-04-11 20:24 | XMS_ITS | Encounter Summary ---
Author Organization [facility] Address [address] [place] [address] Care Team Providers Care Fruit Buyer Name Role Phone Unavailable Primary Care Provider Unavailabl e Encounter Details Date Type Department Care Team (Late st Contact Info) Description 02/07/2021 1:[address]OR Rapid Evaluation [facility] Community Testing [facility] [address] [place], [place] [id number] Social History Tobacco Use Types Packs/Day Years Used Date Smoking Tobacco: Never Assessed Comments Unknown Sex and Gender Information Value Date Recorded Sex Assigned at Not on file Legal Sex Female 1:[address] Gender Identity Not on file Sexual Orientation Not on file documented as of this encounter Plan of Treatment Not on file documented as of this encounter Visit Diagnoses Not on filedocumented in this encounter
== END 2024-04-05 17:07 | disposition home or self-care (01) ==
PROVIDERS: Physician Assistant; Emergency Provider Student in an Organized Health Care Education/Training Program; PCP Family Medicine
DX: U07.1 COVID-19 (principal); J06.9 Acute upper respiratory infection, unspecified; D50.9 Iron deficiency anemia, unspecified; G47.30 Sleep apnea, unspecified; K21.9 Gastro-esophageal reflux disease without esophagitis; K44.9 Diaphragmatic hernia without obstruction or gangrene; M17.11 Unilateral primary osteoarthritis, right knee; Z90.11 Acquired absence of right breast and nipple; Z98.49 Cataract extraction status, unspecified eye; Z85.3 Personal history of malignant neoplasm of breast; Z86.16 Personal history of COVID-19; Z87.891 Personal history of nicotine dependence
CPT/HCPCS: 71046; 87637; 99283; A9270

== ENCOUNTER 2024-08-03 12:25 | Outpatient (CLI) | payer MEDICARE, SELFPAY ==
--- NOTE | ~2024-08-03 | XR_ITS ---
Left Shoulder Technique: AP and scapular Y views were obtained. Clinical History: Adhesive capsulitis Findings: No fracture or dislocation is seen. Osseous alignment is anatomic. The glenohumeral joint e ffusion is advanced degenerative change with large inferomedial humeral head osteophyte and joint spa ce narrowing.. Soft tissues are unremarkable. Impression: Advanced glenohumeral joint degenerative change. Reviewed, dictated and finalized at location M. Impression: Advanced glenohumeral joint degenerative change.
== END 2024-08-03 12:26 | disposition home or self-care (01) ==
PROVIDERS: PCP Family Medicine; Visit Provider Family Medicine
DX: M19.012 Primary osteoarthritis, left shoulder (principal)
CPT/HCPCS: 73030

== ENCOUNTER 2024-09-30 14:24 | Outpatient (CLI) | payer MEDICARE, SELFPAY ==
--- NOTE | ~2024-09-30 | DEXA_ITS ---
Bone Density Report Name: GEORGE ZUÑIGA Age: 83 Sex: Female Ethnicity: White Date of : 1940 Indication: postmenopausal; screening for osteoporosis; height loss; cancer; hysterectomy; Referring Provider: GOPAL RAMOS Study: Bone densitometry was performed. Exam Date: September 30, 2024 Accession number: [id number] Bone Density: Region BMD T-score Z-score Classification AP Spine(L1-L4) 1.205 1.4 4.3 Normal Femoral Neck (Left) 0.646 -1.8 0.7 Osteopenia Total Hip (Left) 0.795 -1.2 1.1 Osteopenia Femoral Neck (Right) 0.623 -2.0 0.5 Osteopenia Total Hip (Right) 0.744 -1.6 0.7 Osteopenia Total Hip Mean 0.770 -1.4 0.9 Osteopenia World Health Organization criteria for BMD impression classify patients as: Normal (T-score at or above -1.0), Osteopenia (T-score between -1.0 and -2.5), or Osteoporosis (T-score at or below -2.5). 10-year Fracture Risk(1): Major Osteoporotic Fracture 14% Hip Fracture 4.2% Reported Risk Factors: [place] (), Neck BMD=0.623, BMI=37.6 (1) FRAX(R) Version 3.08. Fracture probability calculated for an untreated patient. Fracture probability may be lower if the patient has received treatment. Clinical Information Provided by Patient: Has used the following medications: Vitamin D, Calcium Has the following medical conditions: Cancer, Hysterectomy Patient maximum height was 60 Menopause Age: 44 No regular weight bearing exercise Drinks caffeinated beverages Onset of menses at age 8 Number of children 4 Impression: The patient has low bone mass, based on the Right Femoral Neck T-score. The patient has an estimated ten-year risk of hip fracture of 4.2% and an estimated ten-year risk of major fracture of 14%, based on the WHO FRAX algorithm. Discussion: BONE DENSITY IS LOW AT ONE OR MORE SKELETAL SITES. THE PATIENT'S BMD AND CLINICAL RISK FACTORS CONTRIBUTE TO THIS PATIENT'S INCREASED RISK OF FRACTURE. This patient's lowest T-score is low at one or more skeletal sites. It meets the World Health Organization's (WHO) criteria for ?low bone mass? (T-score between -1.0 and -2.5). The patient's 10-year risk of hip fracture as calculated by FRAX exceeds the threshold where pharmacological therapy is recommended by the National Osteoporosis Foundation (NOF). However, all treatment decisions require clinical judgment and consideration of individual patient factors, including patient preferences, comorbidities, previous drug use, risk factors not captured in the FRAX model (e.g., frailty, falls, vitamin D deficiency, increased bone turnover, interval significant decline in bone density) and possible under or overestimation of fracture risk by FRAX. The patient should follow a healthful lifestyle (good nutrition with adequate calcium and vitamin D, and appropriate weight-bearing exercise). Follow-Up: Consider a repeat BMD and Vertebral Fracture Assessment (VFA) exam in 2 years or sooner if medically necessary, to reassess this patient's status. Reported by: CAREN on 10/04/2024 7:38:00 AM. Reviewed, dictated and finalized at location A.
--- OUTSIDE RECORDS SUMMARY | 2024-09-30 14:28 | XMS_ITS | Continuity of Care Document ---
Author Organization [facility] Address [address] [place] [address] [place] [address] Phone Care Team Providers Care Through Freight Engineer Name Role Phone Vidhya Peguero Unavailable Unavailable Procedures Procedure Date Office/outpatient Visit, Est Eye Exam & Treatment Eye Exam, New Patient Advance Directives Directive Yes / No Effective Date File Name No Information Encounters Encounter Description Practice Location Reason(s) For Visit Diagnoses Date Provider Providers Copied on Encounter Office/outpat ient Visit, Est [facility], [address] [place] [address] [address], [place], [place], [id number], tel:[phone] [facility] No Information 0 Marielena Kee. [address] , [address], [place], [place], [facility], [place]. tel:[phone] [facility], [address] [place] [address] [address], [place], [place], [id number], tel:[phone] [facility] No Information 200 9 Marielena Mullins [address], [place], [address], [place]. tel:[phone] [facility], [address] [place] [address] [address], [place], [place], [id number], [place] tel:[phone] [facility] No Information 5-200 8 Marielena Kee. [address] , [address], [place], [place], [facility], [place]. tel:[phone] Family History Family Member Type Diagnosis Age At Onset No Information Payers Payer name Insurance type Covered alliance party ID Authoriza tion(s) No Information Social [...]
--- OUTSIDE RECORDS SUMMARY | 2024-09-30 14:28 | XMS_ITS | Clinical Summary ---
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
== END 2024-09-30 14:25 | disposition home or self-care (01) ==
LOC: ANHIMG 14:25
PROVIDERS: PCP Family Medicine; Visit Provider Student in an Organized Health Care Education/Training Program
DX: M85.89 Other specified disorders of bone density and structure, multiple sites (principal); Z78.0 Asymptomatic menopausal state; Z13.820 Encounter for screening for osteoporosis
CPT/HCPCS: 77080

== ENCOUNTER 2024-10-28 14:15 | Outpatient (RCR) | payer MEDICARE, SELFPAY ==
--- NOTE | 2024-09-22 13:33 | PTOPEVAL1 ---
Assessment and note entered by Chace Stanley Evaluation Information Assessment Status Evaluation ICD-10 Condition Codes (PT) Pain in left shoulder M25.512 Other ICD-10 Condition Codes ( M75.02 Adhesive capsulitis of the left shoulder PT) Onset 09/23/23 Subjective Information Pt. reports that she starting developing left shoulder pain about a year ago. She describes pain surrounding the entire left shoulder. She reports she is ambidextrous. She states that reaching away from her body is most painful. she notices pain and difficulty with trying to shut a door or raising her arm overhead. she reports she does get pain at night. She states that she continues to drive and is able to complete all ADL 's despite pain, just slower and painful. She reports that her goal is Reported Pain Level Pain Score 6: Self Report Assessment PT Clinical Summary Pt. is an 83 year old female who enters the clinic with left shoulder pain due to degenerative changes. She presents with impaired left shoulder ROM, impaired left shoulder strength and pain on this date. continued skilled PT is indicated in order to improve these areas to allow for improved comfort with IADL performance. Plan of Care Interventions Electrical Stimulation,Hot Pack/Cold Pack,Manual Therapy,Neuro Re-education,Patient/Caregiver Education,Therapeutic Activities,Therapeutic Exercise PT Services Indicated Yes Treatment Frequency and 2x/week x 10 visits Duration These treatments will address the objective and functional deficits as defined above. The patient will be advanced safely and appropriately in order for the patient to progress towards his/her prior level of function. Additional exercises will be introduced and as well as a comprehensive home exercise program upon discharge, if needed, ?to ensure carryover of functional gains achieved in the clinic. This treatment plan has been reviewed and agreement upon by the patient.
--- NOTE | 2024-09-22 13:42 | OPREHPOC ---
Outpatient Therapy Plan of Care This is a Multidisciplinary Plan of Care that may contain components documented by all disciplines (PT, OT, and ST.) PT Problem 1 PT Problem #1 Knowledge Deficit PT Goal 1 Goal / Goal Update Pt. will be independent with a HEP addressing shoulder mobility. PT Problem 2 PT Problem #2 Impaired Range of Motion PT Goal 1 Goal / Goal Update Pt. will attain 140 degrees of active left shoulder flexion against gravity to improve ability to complete overhead ADL's Pt. will be able to reach to the upper lumbar region with left shoulder IR for improve ease of dressing. Target Visit 10 PT Problem 3 PT Problem #3 Impaired Strength PT Goal 1 Goal / Goal Update Pt. will demonstrate ability to lift 1-2# object overhead with the left u.e. for 2-3 reps Target Visit 10 PT Problem 4 PT Problem #4 Impaired Functional Mobility PT Goal 1 Goal / Goal Update Pt. will present with less than 25% limitation on the Quick DASH indicating significant functional improvement. Target Visit 10
--- NOTE | 2024-10-08 13:48 | PCPTNOTE ---
Patient reports she needs to cancel because she has to much going on.
--- NOTE | 2024-10-28 15:09 | PTOPDC ---
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 Pt states she did not go ER but her daughter who is a nurse checked her out when she got off work. Pt states she believes the fall occurred because she has a problem picking up her feet. She states she does not think her shoulder was directly affected but she is a little sore all over. Reported Pain Level Pain Score 8: Self Report Assessment PT Clinical Summary Pt presents today for a progress note following 9 visits of physical therapy treatment for her L shoulder. Pt reports she had a fall where she tripped forward over her own feet and has notable bruising on her face/L eye. Pt was examined and was not tender to palpation of rotator cuff muscular or humeral shaft and displayed with similar mobility and symptoms to that prior of the fall. Pt was advised to see PCP to determine if further imagining is warranted. Upon re-evaluation of L shoulder mobility and strength, Patient's condition has made little to no advancements in symptoms, mobility, strength, and functional tolerance to activities of daily living likely due to degenerative changes in L shoulder. Pt was educated on shoulder OA and advised to continue doing home exercise program. Plan of Care PT Services Indicated No
== END 2024-10-29 08:29 | disposition home or self-care (01) ==
LOC: ANHGOSHPT 14:15
PROVIDERS: PCP Family Medicine; Visit Provider Family Medicine
DX: M75.02 Adhesive capsulitis of left shoulder (principal)
CPT/HCPCS: 97014; 97110; 97140; 97161; 97530; G0283

== ENCOUNTER 2024-12-06 10:02 | Outpatient (CLI) | payer MEDICARE, SELFPAY ==
--- OUTSIDE RECORDS SUMMARY | 2009-08-22 09:00 | XMS_ITS | Continuity of Care Document ---
Author Organization [facility] Address [address] [place] [address] [place] [address] Phone Care Team Providers Care Batter Depositor Name Role Phone Vidhya Peguero Unavailable Unavailable Procedures Procedure Date Office/outpatient Visit, Est Eye Exam & Treatment Eye Exam, New Patient Advance Directives Directive Yes / No Effective Date File Name No Information Encounters Encounter Description Practice Location Reason(s) For Visit Diagnoses Date Provider Providers Copied on Encounter Office/outpat ient Visit, Est [facility], [address] [place] [address] [address], [place], [place], [id number], tel:[phone] [facility] No Information 0 Marielena Kee. [address], [place], [place], [facility], [place]. tel:[phone] [facility], [address] [place] [address] [address], [place], [place], [id number], tel:[phone] [facility] No Information 200 9 Marielena Mullins [address], [place], [address], [place]. tel:[phone] [facility], [address] [place] [address] [address], [place], [place], [id number], [place] tel:[phone] [facility] No Information 5-200 8 Marielena Kee. [address], [place], [place], [facility], [place]. tel:[phone] Family History Family Member Type Diagnosis Age At Onset No Information Payers Payer name Insurance type Covered constitution party ID Authoriza tion(s) No Information Social History Type Description Quantity Date Captured Comments Sex Female Smoking Status No Information Chief Complaint And Reason For Visit No Information Reason For Referral Reason For Referral No Information History Of Present Illness Encounter Date Complaint History Of Prese nt Illness No Information Functional Status Date Functional Assessmen t No Information Instructions Date Instruction Additional Infor mation No Information Assessments Type Assessment Date No Information Patient Care Teams Name Effective Dates (start - stop) Status Members No Information
--- NOTE | ~2024-12-06 | MM_ITS ---
EXAMINATION: MM screening melissa LT w sophia INDICATION: Asymptomatic, referred for screening mammogram. History of Right mastectomy 1989. COMPARISON: 10/27/2023 through 03/25/2019 TECHNIQUE: Digital Breast Tomosynthesis CC, MLO views were obtained of LEFT breast with computer-aided detection to assist in interpretation of the study. FINDINGS: There are scattered areas of fibroglandular density. No focal dominant mass, architectural distortion, or suspicious microcalcifications are identified. There are no features to suggest malignancy. IMPRESSION: 1. No mammographic evidence of malignancy. 2. Recommend routine screening mammography in one year. BI-RADS Category 1: Negative Reviewed, dictated and finalized at location B.
--- OUTSIDE RECORDS SUMMARY | 2024-12-06 10:24 | XMS_ITS | Clinical Summary ---
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 Gender Identity Not on file Sexual Orientation Not on file Plan of Treatment Health Maintenance Due Date Last Done Comments Hepatitis C Virus (HCV) Screening 1940 TdaP Immunization 1940 Respiratory Syncytial Virus (RSV) Immunization (Adult) (1 - 1-dose 75+ series) 2013 Pneumococcal Immunization (50+ years) (2 of 2 - PCV) 12/09/2018 12/09/2017 SARS-COV-2 Immunization ( - season) 2023 01/29/2021, 06/16/2020, 05/19/2020 Influenza Immunization (#1) 11/29/202411/30, 11/25/2018, 12/02/2017, Additional history exists Zoster Immunization Completed 09/22/2018, 9 Hepatitis B Immunization Aged Out No longer eligible based on patient's age to complete this topic Human Papillomavirus (HPV) Immunization Aged Out No longer eligible based on patient's age to complete this topic Meningococcal Immunization (ACWY) Aged Out No longer eligible based on patient's age to complete this topic Rotavirus Immunization Aged Out No lo nger eligible based on patient's age to complete this topic
== END 2024-12-06 10:03 | disposition home or self-care (01) ==
LOC: ANHFOHIMG 10:03
PROVIDERS: PCP Family Medicine; Visit Provider Family Medicine
DX: Z12.31 Encounter for screening mammogram for malignant neoplasm of breast (principal)
CPT/HCPCS: 77063; 77067

== ENCOUNTER 2025-02-02 09:00 | Outpatient (CLI) | payer MEDICARE, SELFPAY ==
--- OUTSIDE RECORDS SUMMARY | 2025-02-02 09:29 | XMS_ITS | Clinical Summary ---
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
[2025-02-02 13:59] LABS: Alanine Aminotransferase 20 U/L (6-35); Albumin Level 4.3 g/dL (3.5-5.1); Alkaline Phosphatase 63 U/L (38-126); Anion Gap 10 mmol/L (4-12); Aspartate Amino Transferase 37 U/L (14-36); Bilirubin,Total 0.4 mg/dL (0.2-1.3); Blood Urea Nitrogen 20 mg/dL (7-17); Calcium 9.2 mg/dL (8.4-10.2); Carbon Dioxide 26 mmol/L (22-30); Chloride 104 mmol/L (98-107); Cholesterol 136 mg/dL (0-200); Estimated Glomerular Filt Rate > 60; Glucose 88 mg/dL (65-110); HDL Direct 45 mg/dL; Potassium 4.1 mmol/L (3.4-5.0); Sodium 140 mmol/L (137-145); Total Protein 7.2 g/dL (6.3-8.2); Triglycerides 165 mg/dL (<150)
[2025-02-02 17:16] LABS: Hemoglobin A1C 5.5 % (<5.7)
== END 2025-02-02 09:01 | disposition home or self-care (01) ==
LOC: ANHGOSHLAB 09:01
PROVIDERS: PCP Family Medicine; Visit Provider Family Medicine
DX: E78.2 Mixed hyperlipidemia (principal); R73.9 Hyperglycemia, unspecified; I10 Essential (primary) hypertension
CPT/HCPCS: 36415; 80053; 80061; 83036